=== PATIENT | male | born 1960 | race Hispanic/Latino ===

== ENCOUNTER 2016-06-03 13:04 | Emergency (ER) | payer OTHER ==
[~2016-06-03] VITALS: Ht 177.8 cm; Wt 122.7 kg
[~2016-06-03 13:04] MED LIST: ARIP10TA14 PO; ASPI-973 PO; ATOR40TA69 PO; CEPH500C PO; FAMO20T PO; GABA600T2 PO; INSLIS SUBQ; INSU100V7 SUBQ; LEVO50TA83 PO; LISI-567 PO; METF1000 PO; SULF1TAB7 PO; VENL150C PO
[2016-06-03 13:11] VITALS: BP 119/77; PULSE 85; RESP 12; O2SAT 98
--- NOTE | 2016-06-03 13:13 | ED.REPORT ---
HPI-General Illness Date of Service Jun 03, 2016 ED Provider: Dr. Jameson Pt is a 55 y/o male w/ a hx of NIDDM, HTN, chronic osteomyelitis, Hep C, substance abuse, hyperlipidemia, presenting to the ED via EMS c/o lightheadedness and headache onset last night. Last night, the patient turned on his natural gas heating system after a long time of having it off and began to experience symptoms this morning. His girlfriend reportedly has been experiencing similar symptoms. He also reports subjective paresthesias about the face and upper extremities diffusely. Pt denies CP, SOB, focal numbness/ weakness, fever, chills, nausea, vomiting, recent illnesses. He last used IV meth 2 days ago. Nursing Notes Stated Complaint: LIGHT HEADED, DIZZY, POSSIBLE GAS EXPOSURE Nursing Notes Reviewed: Yes Allergies: Coded Allergies: hydrocodone (Verified Allergy, Unknown, itching all over, 01/13/16) aspirin (Verified Adverse Reaction, Severe, gi upset, 01/13/16) Scheduled Aripiprazole (Abilify) 10 Mg Tablet 10 MG PO DAILY Aspirin (Aspirin) 81 Mg Tablet 81 MG PO DAILY Atorvastatin Calcium (Atorvastatin Calcium) 40 Mg Tablet 40 MG PO HS Cephalexin (Cephalexin) 500 Mg Capsule 500 MG PO QID Famotidine (Pepcid) 20 Mg Tablet 20 MG PO BID Gabapentin (Gabapentin) 600 Mg Tablet 600 MG PO TID Insulin Glargine (Lantus U100 Insulin Vial) 100 Unit/Ml Vial 55 UNIT SUBQ BID Levothyroxine (Synthroid) 50 Mcg Tablet 50 MCG PO DAILYAC Lisinopril (Lisinopril) 20 Mg Tablet 20 MG PO DAILY Metformin (Glucophage) 1,000 Mg Tablet 1,000 MG PO BID Sulfamethoxazole/Trimeth 800-160 mg (Bactrim DS) 1 Each Tablet 2 TABLET PO BID Venlafaxine ER (Effexor XR) 150 Mg Cap.er.24h 150 MG PO DAILY Scheduled PRN Insulin Human Lispro (HumaLOG U100 Insulin Vial) 100 Unit/Ml Unit 0-40 UNIT SUBQ TIDWM PRN PRN sliding scale 10 units subq for every 100 BS General Time Seen by MD: 13:13 Chief Complaint Other (Lightheaded) Hx Obtained From: Patient, EMS Arrived By: Ambulance Sudden in Onset?: No Onset Occurred: 9 - 12 hours ago Symptom Duration: Since onset Location: : Head Quality: Aching Severity: Current: Moderate Severity: Maximum: Moderate Past Medical History Past Medical History Chronic osteomyelitis Hep C Substance abuse Peripheral vascular disease Peripheral neuropathy Diverticulitis Reports: Diabetes mellitus, Hyperlipidemia, Hypertension Past Surgical History 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 Physical Exam Vital Signs Vital Signs Date Time Temp Pulse Resp B/P Pulse Ox O2 Delivery O2 Flow Rate FiO2 06/03/16 16:16 14 121/68 98 Room Air 06/03/16 15:30 87 15 115/64 100 Nasal Cannula 2 06/03/16 14:30 84 16 121/65 97 Room Air 06/03/16 13:11 36.2 85 12 119/77 98 Nasal Cannula 2 Initial VS: Reviewed Head / Eyes: Atraumatic, Normocephalic, PERRL ENT: Mucous membranes moist, Conjunctiva normal, No scleral icterus Neck: Supple, Full range of motion Respiratory: Breath sounds normal, Clear to auscultation, No respiratory distress Cardiovascular: Regular rate & rhythm, Heart sounds normal, Intact distal pulses Abdomen / GI: Soft, Non-tender, No guarding, No rebound, No distention Extremities: Vascular intact, Neuro intact, No swelling, No tenderness Skin: Warm, Dry, No cyanosis Psychiatric: Mood/affect normal, Behavior normal, Normal thought content General/Constitutional: Awake, Alert, No acute distress, Cooperative, Not toxic appearing Appearance / Presentation: Positive: Obese Neurologic: Oriented X3, Speech NL, No motor deficits, No sensory deficits, CN II - XII intact, Cerebellar NL, Memory NL Subjective paresthesia around face and upper extremities Interpretation & Diagnostics Lab Results Interpretation Result Diagram: 06/03/16 1312 06/03/16 1312 Test 06/03/16 13:12 06/03/16 14:01 06/03/16 15:45 White Blood Count 13.5th/mm3 (3.8-10.1) Red Blood Count 5.40mil/mm3 (4.40-5.80) Hemoglobin 15.9g/dL (13.8-17.2) Hematocrit 46.7% (41.0-50.0) Mean Corpuscular Volume 86.5fL (81-100) Mean Corpuscular Hemoglobin 29.4pg (27.0-35.0) Mean Corpuscular Hemoglobin Concent 34.0% (32.0-37.0) Red Cell Distribution Width 13.2% (12.3-15.4) Platelet Count 275bil/L (150-400) Neutrophils (%) (Auto) 62.8% (40-74) Lymphocytes (%) (Auto) 27.8% (14-46) Monocytes (%) (Auto) 6.3% (4-12) Eosinophils (%) (Auto) 2.4% (0-5) Basophils (%) (Auto) 0.4% (0-3) Sodium Level 133mEq/L (134-144) Potassium Level 3.9mEq/L (3.5-5.2) Chloride Level 92mEq/L (97-108) Carbon Dioxide Level 24mmol/L (18-29) Blood Urea Nitrogen 32mg/dL (6-24) Creatinine 1.86mg/dL (0.76-1.27) Estimat Glomerular Filtration Rate 41mL/min (>59) Glucose Level 335mg/dL (60-99) Calcium Level 8.7mg/dL (8.5-10.1) Magnesium Level 1.8mg/dL (1.6-2.6) Total Bilirubin 0.3mg/dL (0.0-1.2) Aspartate Amino Transf (AST/SGOT) 22U/L (0-50) Alanine Aminotransferase (ALT/SGPT) 31U/L (0-44) Alkaline Phosphatase 68U/L (25-150) Total Protein 7.2g/dL (6.4-8.4) Albumin 3.6g/dL (3.4-5.0) Lactic Acid Level 2.5mmol/L (0.4-2.0) Hold Urine Received (Received) Lab Results Interpretation: AB.382/43/97.8/25.2/0.4 with FCOHb of 2.2 and FMetHb of 1.0 Urine tox screen positive for methamphetamine ECG Interpretation ECG Interpretation: Sinus rhythm rate 82 RBBB and LAFB Time: 14:05 Interpreted by: ED physician Normal ECG Interpretation: No acute ischemic changes, No change from prior ECGs X-Ray Chest Interpretation View: Portable, 1 view Interpretation / Wet Read by: Wet read ED physician NL X-Ray Chest Findings: No infiltrate, No acute disease CT Head Interpretation IMPRESSION: 1. No acute intracranial abnormalities. 2. Chronic ethmoid sinus disease. Dictated by: Saundra Carson M.D. on 06/03/2016 at 13:45 Approved by: Saundra Carson M.D. on 06/03/2016 at 13:47 Study: Head CT no contrast Interpretation / Wet Read by: Interpret - Radiologist Re-Eval/Medical Decision Med Decision/Clinical Course Patient symptoms improved dramatically while in the ER with IV fluids and a short trial of supplemental oxygen. There are no cardiopulmonary symptoms, this is inconsistent with stroke or subarachnoid hemorrhage, unlikely to be acute coronary syndrome or pulmonary embolism or aortic dissection. He does have poorly controlled diabetes and some dehydration on laboratory evaluation, I do not suspect acute infection in this patient. Carbon monoxide poisoning and methemoglobinemia has been ruled out via ABG with co-oximetry. Overall patient is feeling better and will be discharged. To return and follow-up precautions given Time of Eval: 15:31 Re-Evaluation/Progress Note: Pt rechecked. Informed pt of plan for treatment. Pt understands and agrees with plan for treatment. F/U and RTER warnings given. All questions addressed. Counseled Regarding: Diagnosis, Lab results, Need for follow-up, When/why to return to ED Discharge & Departure Primary Impression: Near syncope Additional Impressions: Methamphetamine abuse IV drug abuse Disposition: Home Discharge Condition All VS Reviewed: Yes Condition: Stable Additional Instructions: Overall there does not seem to be a life-threatening cause for your symptoms. Her EKG, chest x-ray, head CT and laboratory studies are normal. There is no evidence of carbon monoxide poisoning. You may be dehydrated, your sugars are elevated. You should follow-up with a primary care doctor for further evaluation. Return to ER if worse. Referrals: Trever Lees DO (PCP) Anupam Attestation Portions of this note were transcribed by Christos Fernando. I, Dr. Jameson personally performed the history, physical exam and medical decision-making; I reviewed and confirmed the accuracy of the information in the transcribed note. Signed by Anupam Rocha, 06/03/16 - 1400 copies to: Trever Lees Timothy S DO Jun 03, 2016 13:13 CHRISTOS FERNANDO Jun 03, 2016 13:14
[2016-06-03] MEDS ORDERED: 0.9% Sodium Chloride 1,000 ML IV ONE (13:22)
[2016-06-03] MEDS ORDERED: Ondansetron 2 mg/mL 2 mL Inj IV PRN (13:25)
[2016-06-03] MEDS ORDERED: HYDROmorphone 0.5 mg/0.5 mL iSecure Syringe IVPUSH PRN (13:25)
[2016-06-03 13:38] LABS: BASOPHILS % (AUTO) 0.4 % (0-3); EOSINOPHILS % (AUTO) 2.4 % (0-5); MONOCYTES % (AUTO) 6.3 % (4-12); Mean Corpuscular Hemoglobin 29.4 pg (27.0-35.0); Mean Corpuscular Volume 86.5 fL (81-100); NEUTROPHILS % (AUTO) 62.8 % (40-74); Platelet Count 275 bil/L (150-400)
--- NOTE | 2016-06-03 13:47 | ABG ---
DateTimeAnalyzed 13:44:00 -_ pH ____7.382 - 7.350 7.450 pCO2 ___43.3__ -mmHg 35.0 45.0 pO2 ___97.8__ -mmHg 69.0 116 HCO3- ___25.2__ -mmol/L 22.0 26.0 ABE ____0.4__ -mmol/L -2.0 2.0 tHb ___14.8__ -g/dL O2Hb ___94.6__ -% COHb ____2.2__ -% MetHb ____1.0__ -% sO2 ___97.7__ -% 25.0 FIO2 ___28.0__ -% Drawn By jmw - Date/Time Notified____ 13:47:00 -_ Spontaneous_RR ___19.0__ -b/min Liter_Flow ____2.0__ -L/min Oxygen Device 1 __CANNULA - Notified By JMW - Notified Whom DR O,JENNI - B 765 -mmHg tO2 ___19.7__ -Vol% Yon test _Positive -
[2016-06-03 13:48] LABS: Magnesium 1.8 mg/dL (1.6-2.6)
--- NOTE | 2016-06-03 13:50 | DRSVH ---
PROCEDURE: CT BRAIN WITHOUT CONTRAST ([id number]) INDICATIONS: headache TECHNIQUE: Noncontrast 4.5 mm thick angled axial sections acquired from the foramen magnum to the vertex, with c oronal reformats. COMPARISON: [facility], CT, BRAIN W/O CONTRAST, 01/11/2014, 17:02. [facility], CT, BRAIN W/O CONTRAST, 07/30/2011, 15:09. FINDINGS: Image quality: Excellent. CSF spaces: Basal cisterns are patent. No extra-axial fluid collections. The ventricles are symmet sergio in size and shape. Brain: No intracranial bleeds or masses. There is mild cerebral volume loss for age, with resultant ventricular and sulcal prominence. There are mild periventricular and deep white matter chronic sma ll vessel ischemic changes. There is intracranial internal carotid artery atherosclerosis. Skull and face: Calvarium and visualized facial bones appear intact, without suspicious lesions. Sinuses: Chronic bilateral ethmoid sinus the other thickening could mastoids are clear. IMPRESSION: 1. No acute intracranial abnormalities. 2. Chronic ethmoid sinus disease. Dictated by: Saundra Carson M.D. on 06/03/2016 at 13:45 Approved by: Saundra Carson M.D. on 06/03/2016 at 13:47
[2016-06-03 14:30] VITALS: BP 121/65; PULSE 84; RESP 16; O2SAT 97
[2016-06-03 15:30] VITALS: BP 115/64; PULSE 87; RESP 15; O2SAT 100
--- NOTE | 2016-06-03 15:33 | DRSVH ---
PROCEDURE: X-RAY CHEST ONE VIEW, PORTABLE ([id number]) INDICATIONS: weakness TECHNIQUE: One view of the chest was acquired. COMPARISON: [facility], CR, CHEST 1VW (PORTABLE), 04/23/2014, 21:57. [facility], CR, XR CHEST 1VW (PORTABLE), 12/21/2014, 9:39. [facility], CR, CHEST 1 VIEW, 04/03/2016, 22 :55. [facility], CR, XR CHEST 1VW (PORTABLE), 10/30/2015, 21:19. FINDINGS: Surgical changes and devices: None. Lungs and pleura: No pleural effusions or pneumothorax. Lungs are clear. Mediastinum: Mediastinal contours appear normal. Heart size is normal. Bones and chest wall: No suspicious bony lesions. Overlying soft tissues appear unremarkable. IMPRESSION: No acute cardiopulmonary disease. Dictated by: Saundra Carson M.D. on 06/03/2016 at 15:30 Approved by: Saundra Carson M.D. on 06/03/2016 at 15:31
[2016-06-03 16:16] VITALS: BP 121/68; RESP 14; O2SAT 98
== END 2016-06-03 16:17 | disposition home or self-care (01) ==
LOC: SED 13:04
DX: R55 Syncope and collapse (principal); F15.10 Other stimulant abuse, uncomplicated; E11.40 Type 2 diabetes mellitus with diabetic neuropathy, unspecified; I10 Essential (primary) hypertension; E78.5 Hyperlipidemia, unspecified; Z79.4 Long term (current) use of insulin; Z79.82 Long term (current) use of aspirin; Z79.84 Long term (current) use of oral hypoglycemic drugs; Z87.891 Personal history of nicotine dependence; Z88.5 Allergy status to narcotic agent; Z88.8 Allergy status to other drugs, medicaments and biological substances
CPT/HCPCS: 36415; 36620; 70450; 71010; 80053; 82375; 82803; 82948; 83605; 83735; 85025; 93005; 96361; 96374; 96375; 99285; J1170; J2405; J7030

== ENCOUNTER 2016-08-30 14:26 | Inpatient (IN) | payer OTHER, MEDICAID ==
[~2016-08-30] VITALS: Ht 180.3 cm; Wt 130.3 kg
[2016-08-30 14:29] VITALS: BP 152/91; PULSE 111; RESP 16; O2SAT 96
--- NOTE | 2016-08-30 15:32 | ED.REPORT ---
HPI-Rash / Abscess Date of Service Aug 30, 2016 ED Provider: Anu German History of Present Illness: abscess on left ankle for 10 days. primary care is Dr. Puga . Sent by Dr. Puga. Diabetic, last A1c 11.4 today. Seen today at [facility] hoping to get clearance to go to treatment for meth use. ankle swelling and erthyma noted. patient reports started out as a bruise which got worse. Nursing Notes Stated Complaint: L ANKLE ABSCESS Chief Complaint: Skin Rash/Abscess Nursing Notes Reviewed: Yes Allergies: Coded Allergies: hydrocodone (Verified Allergy, Unknown, itching all over, 08/30/16) aspirin (Verified Adverse Reaction, Severe, gi upset, 08/30/16) Scheduled Aripiprazole (Abilify) 10 Mg Tablet 10 MG PO DAILY Aspirin (Aspirin) 81 Mg Tablet 81 MG PO DAILY Atorvastatin Calcium (Atorvastatin Calcium) 40 Mg Tablet 40 MG PO HS Cephalexin (Cephalexin) 500 Mg Capsule 500 MG PO QID Famotidine (Pepcid) 20 Mg Tablet 20 MG PO BID Gabapentin (Gabapentin) 600 Mg Tablet 600 MG PO TID Insulin Glargine (Lantus U100 Insulin Vial) 100 Unit/Ml Vial 55 UNIT SUBQ BID Levothyroxine (Synthroid) 50 Mcg Tablet 50 MCG PO DAILYAC Lisinopril (Lisinopril) 20 Mg Tablet 20 MG PO DAILY Metformin (Glucophage) 1,000 Mg Tablet 1,000 MG PO BID Sulfamethoxazole/Trimeth 800-160 mg (Bactrim DS) 1 Each Tablet 2 TABLET PO BID Venlafaxine ER (Effexor XR) 150 Mg Cap.er.24h 150 MG PO DAILY Scheduled PRN Insulin Human Lispro (HumaLOG U100 Insulin Vial) 100 Unit/Ml Unit 0-40 UNIT SUBQ TIDWM PRN PRN sliding scale 10 units subq for every 100 BS General Time Seen by MD: 15:31 Chief Complaint Boil, Red area Hx Obtained From: Patient Onset Occurred: More than a week ago... (2 weeks) Symptom Duration: Since onset Location: : Foot Past Medical History Past Medical History Chronic osteomyelitis Hep C Substance abuse Peripheral vascular disease Peripheral neuropathy Diverticulitis Reports: Diabetes mellitus, Hyperlipidemia, Hypertension Past Surgical History Right leg amputation at the knee L foot surgery Reports: Appendectomy, Tonsillectomy Smoking History Former Smoker Social History Alcohol Use: "Social" Drug Use: IV drugs, Meth Occupation lives with girfriend, in a house 08/30/2016 Ambulatory Status Wheelchair Review of Systems Basic Review of Systems : No dysuria, No frequency Neurologic: NL mental status, No weakness, No numbness Psychiatric: Normal thought content Physical Exam Initial Vital Signs Vital Signs (First) Date Time Temp Pulse Resp B/P Pulse Ox O2 Delivery O2 Flow Rate FiO2 08/30/16 14:29 36.4 111 16 152/91 96 Room Air Initial VS: Reviewed, Vital signs abnormal Head / Eyes: Atraumatic, Normocephalic, PERRL ENT: Mucous membranes moist, Conjunctiva normal, No scleral icterus Neck: Supple, Non-tender, Full range of motion Respiratory: Breath sounds normal, Clear to auscultation, No respiratory distress Cardiovascular: Regular rate & rhythm, Heart sounds normal, Intact distal pulses Abdomen / GI: Soft, Non-tender, No guarding, No rebound, No distention Back: No CVA tenderness Lymphatic: No lymphadenopathy Extremities: Vascular intact, Neuro intact, No swelling, No tenderness Neurologic: Alert, Oriented, Nonfocal Psychiatric: Mood/affect normal, Behavior normal, Normal thought content General/Constitutional: Awake, Alert, No acute distress, Well appearing, Well developed, Well hydrated Rash / Lesion Notes: swelling is noted over medial malleolus with surrounding erthyma. No palpabable discharge. Site is hard. localized swelling at medial malleolus with surrounding erthyma. Site does not feel flouctant. Head / Eyes: Atraumatic, Normocephalic, PERRL, EOMI Respiratory / Chest: Atraumatic, Breath sounds NL, Breath sounds = bilat, No respiratory distress Cardiovascular: Heart rate NL, Regular rhythm, Heart sounds NL Interpretation & Diagnostics Interpretation & Diagnostics: PROCEDURE: US EXTREMITY SONOGRAM LIMITED ([id number]) INDICATIONS: ? abscess TECHNIQUE: Real-time scanning was performed of the distal left leg, with image documentation. COMPARISON: None. FINDINGS: In this patient with swelling and redness along the medial ankle there is edematous tissue and some increased vascularity but there is no loculated fluid to indicate abscess. IMPRESSION: There is phlegmonous edematous tissue with increased vascularity but no abscess. Dictated by: Abilio Seaman M.D. on 08/30/2016 at 17:39 Approved by: Abilio Seaman M.D. on 08/30/2016 at 17:41 Lab Results Interpretation Result Diagram: 08/30/16 1710 08/30/16 1710 Test 08/30/16 17:10 White Blood Count 9.2th/mm3 (3.8-10.1) Red Blood Count 5.29mil/mm3 (4.40-5.80) Hemoglobin 15.6g/dL (13.8-17.2) Hematocrit 47.2% (41.0-50.0) Mean Corpuscular Volume 89.2fL (81-100) Mean Corpuscular Hemoglobin 29.5pg (27.0-35.0) Mean Corpuscular Hemoglobin Concent 33.1% (32.0-37.0) Red Cell Distribution Width 13.9% (12.3-15.4) Platelet Count 259bil/L (150-400) Neutrophils (%) (Auto) 67.1% (40-74) Lymphocytes (%) (Auto) 23.7% (14-46) Monocytes (%) (Auto) 7.3% (4-12) Eosinophils (%) (Auto) 1.3% (0-5) Basophils (%) (Auto) 0.5% (0-3) Sodium Level 138mEq/L (134-144) Potassium Level 4.6mEq/L (3.5-5.2) Chloride Level 99mEq/L (97-108) Carbon Dioxide Level 26mmol/L (18-29) Blood Urea Nitrogen 40mg/dL (6-24) Creatinine 1.79mg/dL (0.76-1.27) Estimat Glomerular Filtration Rate 42mL/min (>59) Glucose Level 146mg/dL (60-99) Lactic Acid Level 1.5mmol/L (0.4-2.0) Calcium Level 9.2mg/dL (8.5-10.1) Total Bilirubin 0.4mg/dL (0.0-1.2) Aspartate Amino Transf (AST/SGOT) 33U/L (0-50) Alanine Aminotransferase (ALT/SGPT) 46U/L (0-44) Alkaline Phosphatase 79U/L (25-150) Troponin T < 0.010ug/L (0.0-0.011) Total Protein 8.2g/dL (6.4-8.4) Albumin 3.9g/dL (3.4-5.0) X-Ray Interpretation Xray Interpretation: PROCEDURE: X-RAY LEFT ANKLE, MINIMUM THREE VIEWS ([id number]) INDICATIONS: 56-year-old male with medial left ankle abscess for 10 days. TECHNIQUE: 3 views of the ankle were acquired. COMPARISON: None. FINDINGS: Bones: No bony erosions or destruction. No fractures or dislocations. Ankle mortise is normally aligned. No suspicious bony lesions. Soft tissues: There is localized medial malleolar soft tissue swelling. No tibiotalar joint effusion. Achilles tendon appears normal. IMPRESSION: Medial malleolar soft tissue swelling, without underlying bony destruction to suggest advanced bony infection. Dictated by: Salty Resendiz M.D. on 08/30/2016 at 15:13 Approved by: Salty Resendiz M.D. on 08/30/2016 at 15:14 US Soft Tissue/Musculoskeletal PROCEDURE: US EXTREMITY SONOGRAM LIMITED ([id number]) INDICATIONS: ? abscess TECHNIQUE: Real-time scanning was performed of the distal left leg, with image documentation. COMPARISON: None. FINDINGS: In this patient with swelling and redness along the medial ankle there is edematous tissue and some increased vascularity but there is no loculated fluid to indicate abscess. IMPRESSION: There is phlegmonous edematous tissue with increased vascularity but no abscess. Dictated by: Abilio Seaman M.D. on 08/30/2016 at 17:39 Approved by: Abilio Seaman M.D. on 08/30/2016 at 17:41 Re-Eval/Medical Decision Med Decision/Clinical Course Discussed with Dr. Massey. Patient has famialrity with podiatry, many visists to office for care. X-ray does not show obvious signs of osteomlyitits. Ultrasound does not show any drainable abscess. Labs are unremarkable with the exception of creatinine. No sign of gangrene or cutaneous anthrax. Exam is most consistent with cellulitis. Dr. Massey will see him tomorrow. does not need to be NPO per Dr. Massey. If any drainage is indicated, will be done at bedside first per Dr. Massey Discharge & Departure Impression: Primary Impression: Cellulitis Additional Impressions: Uncontrolled diabetes mellitus Diabetes mellitus type: type 2 IV drug abuse Disposition: ADMITTED TO HOSPITAL Referrals: Ronal Le MD EDSupervising Provider for APC: Valentin Alvares MD copies to: Ronal Le MD, Sue ARNP Aug 30, 2016 15:32
[2016-08-30 15:34] VITALS: BP 143/75; PULSE 112; RESP 28; O2SAT 97
[2016-08-30] MEDS ORDERED: 0.9% Sodium Chloride 1,000 ML IV ONE (15:40)
--- NOTE | 2016-08-30 16:16 | DRSVH ---
PROCEDURE: X-RAY LEFT ANKLE, MINIMUM THREE VIEWS ([id number]) INDICATIONS: 56-year-old male with medial left ankle abscess for 10 days. TECHNIQUE: 3 views of the ankle were acquired. COMPARISON: None. FINDINGS: Bones: No bony erosions or destruction. No fractures or dislocations. Ankle mortise is normally ali gned. No suspicious bony lesions. Soft tissues: There is localized medial malleolar soft tissue swelling. No tibiotalar joint effusion . Achilles tendon appears normal. IMPRESSION: Medial malleolar soft tissue swelling, without underlying bony destruction to suggest adv anced bony infection. Dictated by: Salty Resendiz M.D. on 08/30/2016 at 15:13 Approved by: Salty Resendiz M.D. on 08/30/2016 at 15:14
[2016-08-30] MEDS ORDERED: Piperacillin-Tazo 3.375 Gm Inj 3.375 GM in Dextrose 5% Minibag Plus 50 ML IV ONE (16:20)
[2016-08-30] MEDS ORDERED: Ondansetron 2 mg/mL 2 mL Inj IVPUSH PRN (17:10)
[2016-08-30] MEDS ORDERED: Alum-Mag Hydrox-Simeth 30 mL Suspension PO PRN (17:10)
[2016-08-30 17:21] LABS: BASOPHILS % (AUTO) 0.5 % (0-3); EOSINOPHILS % (AUTO) 1.3 % (0-5); MONOCYTES % (AUTO) 7.3 % (4-12); Mean Corpuscular Hemoglobin 29.5 pg (27.0-35.0); Mean Corpuscular Volume 89.2 fL (81-100); NEUTROPHILS % (AUTO) 67.1 % (40-74); Platelet Count 259 bil/L (150-400)
[2016-08-30 17:30] VITALS: BP 140/76; PULSE 97; RESP 15; O2SAT 99
--- NOTE | 2016-08-30 17:42 | DRSVH ---
PROCEDURE: US EXTREMITY SONOGRAM LIMITED ([id number]) INDICATIONS: ? abscess TECHNIQUE: Real-time scanning was performed of the distal left leg, with image documentation. COMPARISON: None. FINDINGS: In this patient with swelling and redness along the medial ankle there is edematous tissue and some increased vascularity but there is no loculated fluid to indicate abscess. IMPRESSION: There is phlegmonous edematous tissue with increased vascularity but no abscess. Dictated by: Abilio Seaman M.D. on 08/30/2016 at 17:39 Approved by: Abilio Seaman M.D. on 08/30/2016 at 17:41
[2016-08-30 17:45] LABS: TROPONIN T < 0.010 ug/L (0.0-0.011)
[2016-08-30 19:07] VITALS: BP 169/97; PULSE 59; RESP 16; O2SAT 100
[2016-08-30] MEDS ORDERED: HYG25 PO (20:12)
[2016-08-30] MEDS ORDERED: LISI40TA PO (20:12)
[2016-08-30 20:18] VITALS: BP 148/85; PULSE 100; RESP 17; O2SAT 95
[2016-08-30] MEDS ORDERED: Dextrose 10% 250 ML IV PRN (20:35)
[2016-08-30] MEDS ORDERED: Glucose 40% Oral Gel 15 Gm Tube PO PRN (20:35)
[2016-08-30] MEDS ORDERED: cefTRIAXone Inj 2,000 MG in Dextrose 5% Minibag Plus 50 ML IV SCH (21:07)
--- NOTE | 2016-08-30 22:00 | PCM.HPMED ---
Subjective Date of Service Aug 30, 2016 Primary Provider: Admitting Physician: Ania Reyna DO Primary Care Physician: Trever Lees DO Attending Physician: Ania Reyna DO Admit Status: From the Emergency Department Chief Complaint: Infection of R medial malleolus History of Present Illness: 56 yo M with past medical history of chronic osteomyelitis right leg amputation and knee due to diabetic complications, hepatitis C and depression, substance abuse, peripheral vascular disease, hyperlipidemia, diverticulitis, hypertension , and diabetes uncontrolled is presenting to the ER with chief complaint of left medial malleolar cellulitis. He was apparently seeing Dr. puga for a clearance for a meth rehabilitation program and Dr. Puga noticed that he has medial malleolus soft tissue swelling and redness and infection as he sent patient to the ER. Patient apparently knows Dr. Massey. She is contacted by the ER she will consider patient tomorrow may opt to perform a bedside I&D Patient states that he started having problems with malleolus tenderness ago when he hit against a shopping cart. He also has several track roche needle roche on the leg but he says that there is a nontender roche rather he uses his arms on the these are just some bruises from various incidents. Patient is a meth user he both injects and also inhales meth. He states that he has eye problems due to diabetic retinopathy. He has sharp pain in his foot even though he has diabetic neuropathy. He currently uses a wheelchair to get around. In the ER A1c was 11.4, ultrasound of the foot showed non-drainable phlegmon there was no abscess. Edematous tissue w/ increased vascularity but no abscess , ankle x-ray showed medial malleolar soft tissue swelling without underlying bony destruction Zosyn one time doses given blood pressure was 152/91 heart rate was 111 respirations 28 EKG showed sinus tach, right bundle branch block, LAFB. Lab work showed a creatinine of 1.79 his previous value of 1.86 this may just be his baseline Patient is admitted as an inpatient under [facility] for management of left malleolus or cellulitis/concern for osteomyelitis., Allergies Coded Allergies: hydrocodone (Verified Allergy, Unknown, itching all over, 08/30/16) aspirin (Verified Adverse Reaction, Severe, gi upset, 08/30/16) Home Medications Home medications included aripiprazole, gabapentin, Lantus 55 units twice a day with sliding scale 3 times a day, levothyroxine, lisinopril, metformin PMH Chronic osteomyelitis, hepatitis C, depression, substance abuse, peripheral vascular disease, hyperlipidemia, diverticulitis, peripheral neuropathy, hypertension, diabetes Surgical History Right leg amputation at knee, left foot surgery, appendectomy, tonsillectomy Family History Mother has depression diabetes he does not know what his dad Social History Hx Alcohol Use: Yes Hx Substance Use: Yes (last used meth 8 hours ago (smoked it) does inject at times ) Hx Tobacco Use: Yes (10 cigarettes/day; has been smoking x 30 years) Smoking Status: Former Smoker Additional Information This with his girlfriend, social alcohol use, uses a wheelchair Exam Vital Signs Vital Sign - Last Date Time Temp Pulse Resp B/P Pulse Ox O2 Delivery O2 Flow Rate FiO2 08/30/16 20:18 36.7 100 17 148/85 95 Room Air Exam General: NAD, laying in bed, morbidly obese, slightly diaphoretic HEENT: NCAT, poor dentition Eyes: Dobson conjunctivae. No ptosis, PERRL Neck: Large neck No masses, trachea midline, no thyromegaly Lungs: CTA with normal respiratory effort, no crackles or wheezes CV: RRR, no murmurs/rubs/gallops, normal PMI GI: Soft, non-tender with no hepatosplenomegaly MSK: Missing right lower extremity, pedal pulses are present. He is able to move the leg around okay Neuro: Sensation is not altered in the foot 6Skin: Warm and dry. Several old needle roche on the left leg, left medial malleolus is red chronically erythematous around a 5 cm area with a nondraining spot in the middle some of it looks pruritic but without drainage Psych: appropriate affect Lab and Diagnostics Result Diagram: 08/30/16 1710 08/30/16 1710 X-Rays, CTs and MRIs PROCEDURE: US EXTREMITY SONOGRAM LIMITED ([id number]) INDICATIONS: ? abscess IMPRESSION: There is phlegmonous edematous tissue with increased vascularity but no abscess. Dictated by: Abilio Seaman M.D. on 08/30/2016 at 17:39 Approved by: Abilio Seaman M.D. on 08/30/2016 at 17:41 NDICATIONS: 56-year-old male with medial left ankle abscess for 10 days. IMPRESSION: Medial malleolar soft tissue swelling, without underlying bony destruction to suggest advanced bony infection. Dictated by: Salty Resendiz M.D. on 08/30/2016 at 15:13 Approved by: Salty Resendiz M.D. on 08/30/2016 at 15:14 12-lead ECG Sinus tach, RBBB, LAFB Assessment & Plan This is a 56-year-old male with chronic cellulitis problems, diabetes, hep C, substance abuse, peripheral vascular disease, hypertension, diabetes that is uncontrolled presenting today fit the cellulitis of the left medial malleolus Assessment #1 cellulitis of the left medial malleolus,, POA -- Zosyn was given in the ER, will give her linezolid plus ceftriaxone due to his renal function and large body habitus differing vancomycin -- ESR and CRP are ordered -- MRI of the left foot is ordered -- Pain control with oxycodone 5 mg every 4 hours when necessary -- We will consider ID consult tomorrow morning -- consult Dr. Massey Assessment #2: Hypertension, chronic active -- Lisinopril was cut to 20 mg daily due to poor renal function -- Elected to use amlodipine rather than to chlorthalidone due to poor renal function -- Daily BMP, CBC, ESR, CRP Assessment #3 diabetes mellitus insulin-dependent, chronic uncontrolled active, states he took insulin this morning -- We will contact home insulin of 55 units twice a day Lantus to 40 units twice a day Lantus -- Sliding scale coverage high-level insulin Humalog -- Before meals at bedtime checks -- Discontinue home medication metformin -- A1C = 11.4 per ED Assessment #4 peripheral neuropathy, chronic reactive -- Continue medication Assessment #5 depression, chronic, active -- We will hold off on giving him the venlafaxine due to side effect of interaction with linezolid Assessment #6 hypothyroidism, chronic active -- Continue home medication levothyroxine Pain Evaluation: Adequate Pain Control Time spent 40 min Ania Reyna DO Aug 30, 2016 22:00
[2016-08-30] MEDS: 0.9% Sodium Chloride 1,000 ML IV SCH (22:14)
[2016-08-30] MEDS: Insulin GLARgine 100 Unit/mL Syringe SUBQ SCH (22:45)
[2016-08-30] MEDS: Insulin LISPRO 300 Unit/3 mL Inj SUBQ SCH (22:48)
[2016-08-31] VITALS (14 sets, daily range): BP systolic 137–180; BP diastolic 63–96; PULSE 82–106; RESP 11–22; O2SAT 96–100
--- NOTE | 2016-08-31 02:40 | NUR ---
Admit Patient arrived at 1900 with significant other at bedside, but left shortly after arrival. Made comfortable, NAC oriented to room, belonging was accounted for, At 2100 patient was taken for imaging c/o pain, given medication upon return.
[2016-08-31 06:20] LABS: Mean Corpuscular Hemoglobin 29.4 pg (27.0-35.0); Mean Corpuscular Volume 91.6 fL (81-100)
[2016-08-31] MEDS: Insulin LISPRO 300 Unit/3 mL Inj SUBQ SCH ×3 (08:06→22:10)
[2016-08-31] MEDS: ARIPiprazole 10 mg Tablet PO SCH (08:07)
[2016-08-31] MEDS: Insulin GLARgine 100 Unit/mL Syringe SUBQ SCH ×2 (08:07→20:29)
--- NOTE | 2016-08-31 08:25 | DRSVH ---
PROCEDURE: MRI ANKLE LEFT WITH AND WITHOUT CONTRAST ([id number]) INDICATIONS: r/o osteomyelitis TECHNIQUE: Noncontrast sagittal T1 spin echo and T2 fast spin echo with fat saturation, axial proton density fas t spin echo and T2 fast spin echo with fat saturation, axial T1 spin echo with fat saturation, barker l T1 spin echo and T2 fast spin echo with fat saturation through the ankle/hindfoot. Post-contrast a xial, coronal, and sagittal T1 spin echo with fat saturation through the ankle/hindfoot. COMPARISON: [facility], CR, XR ANKLE 3VW LT, 08/30/2016, 15:57. FINDINGS: Image quality: Extensive motion artifact is present nearly at every imaging sequence, which does resu lt in image degradation in suboptimal evaluation for subtle bony and soft tissue abnormalities. Bones: No acute fracture or dislocation is present. The ankle mortise is well-maintained. There are no osteochondral defects involving the tibial plafond toward the talar dome. There is mild marrow e radha present along the medial malleolus with corresponding concave deformity at the junction of the m edial distal tibial metaphysis and the medial malleolus. Overlying periosteal thickening is evident. There is corresponding mild enhancement within the bone at this location. Subperiosteal fluid at t his position is evident, which measures approximately 1.6 x 0.6 x 1.2 cm (image 19, series 3 and imag e 10, series 14). Mild to moderate degenerative changes involving the tarsal metatarsal and tarsonav icular joints are present. Otherwise, the remainder of the osseous structures of the midfoot and hind foot are grossly unremarkable. No definite additional areas of marrow edema/enhancement are apprecia joanna. There is a small ankle effusion. Soft tissues: Moderate subcutaneous edema about the ankle is identified, which is more pronounced me dially. Within the subcutaneous tissues overlying the medial malleolus, there is phlegmonous soft ti ssue changes with extensive enhancement in a region that measures at least 2.7 x 1.2 x 2.8 cm (image 18, series 4). Small pockets of fluid contained within this area prominent soft tissue thickening an d enhancement is identified. Additional areas of subcutaneous edema overlying the medial aspect of t he ankle are present. Additional areas of mild soft tissue edema are seen throughout the midfoot and hindfoot with edema and enhancement noted involving the intrinsic muscles of the midfoot. No soft t issue masses or suspicious soft tissue enhancement is identified. Given the degree of motion artifact, evaluation of the soft tissues for ligamentous or tendinous abno rmalities is limited. However, there is tendinopathy involving the peroneus brevis and peroneus long us tendons. Incidental note is made of hernias quartus, an accessory tendon, which is a normal varia nt. Susceptibility artifact along the plantar surface of the lateral mid foot is evident underlying the calcaneocuboid joint. IMPRESSION: 1. Limited MRI, related to motion artifact. 2. Concave bony deformity with mild marrow edema/enhancement along the medial aspect of the distal t ibia with corresponding periosteal reaction and an overlying soft tissue abscess/phlegmonous change i s highly suspicious for osteomyelitis and clinical correlation is recommended. (A soft tissue mass e roding into the bone is felt to be less likely.) 3. Moderate soft tissue edema about the midfoot/hindfoot. No drainable fluid collection is evident. 4. Subcutaneous edema about the ankle. 5. Moderate degenerative changes involving the midfoot joints. 6. Mild to moderate peroneus brevis and peroneus longus tendinopathy. Dictated by: Patricio Madden M.D. on 08/31/2016 at 8:10 Approved by: Patricio Madden M.D. on 08/31/2016 at 8:24
[2016-08-31] MEDS ORDERED: Lisinopril 40 Tablet PO SCH (08:30)
[2016-08-31] MEDS ORDERED: Venlafaxine XR 75 mg ER24 Capsule PO SCH (08:30)
--- NOTE | 2016-08-31 12:38 | PCM.CHPPOD ---
Subjective Date of service Aug 31, 2016 History of Present Illness The patient came in to the emergency department on request of Dr. Le for swelling along the medial ankle on his remaining limb. The patient has an above -the-knee amputation stump on the right. He states that he hit his ankle with a shopping cart approximately 10-11 days ago and the swelling started at that time. He has a history of IV drug abuse, intermittent, with history of previous overdoses. He is pleasant in conversation, as usual, but a poor historian. His girlfriend is currently not at his bedside, but in previous visits to the hospital, his demeanor would change when she is around. At this point he denies fevers and chills, nausea and vomiting. He did have nausea and chills for several days prior to seeing his primary care physician. He avoids coming to the hospital. Allergy Allergies: Coded Allergies: hydrocodone (Verified Allergy, Unknown, itching all over, 08/30/16) aspirin (Verified Adverse Reaction, Severe, gi upset, 08/30/16) Medications Aripiprazole (Abilify) 10 Mg Tablet 10 MG PO DAILY Chlorthalidone (Chlorthalidone) 25 Mg Tablet 25 MG PO DAILY Gabapentin (Gabapentin) 600 Mg Tablet 600 MG PO TID Insulin Glargine (Lantus U100 Insulin Vial) 100 Unit/Ml Vial 55 UNIT SUBQ BID Insulin Human Lispro (HumaLOG U100 Insulin Vial) 100 Unit/Ml Unit 0-40 UNIT SUBQ TIDWM PRN PRN sliding scale 10 units subq for every 100 BS Levothyroxine (Synthroid) 50 Mcg Tablet 50 MCG PO DAILYAC Lisinopril (Lisinopril) 40 Mg Tablet 40 MG PO DAILY Metformin (Glucophage) 1,000 Mg Tablet 1,000 MG PO BID Venlafaxine ER (Effexor XR) 150 Mg Cap.er.24h 150 MG PO DAILY Past Medical History Reviewed Admit H&P dictated by: Dr. Reyna Surgeries: Yes ( rt Aka, rt rotator cuff , appy) Medical History: (1) Chronic pain (2) Contusion, hand (3) Hyperglycemia (4) Methamphetamine use (5) Diverticulitis (6) Diverticulitis (7) LLQ abdominal pain (8) Gastritis (9) Pancreatic mass (10) Shoulder pain, right (11) Hyperglycemia (12) Chest pain (13) Cellulitis in diabetic foot (14) Near syncope (15) Methamphetamine abuse (16) Uncontrolled blood glucose (17) Cellulitis (18) Uncontrolled diabetes mellitus (19) IV drug abuse (20) Cellulitis of left ankle (21) Osteomyelitis (22) Bacteremia due to coagulase-negative Staphylococcus (23) Hyperglycemia without ketosis (24) Diabetic foot ulcer (25) NEUROPATHY IN DIABETES (26) HYPERTENSION NOS (27) ULCER OF HEEL AND MIDFOOT (28) Ulcer of lower extremity (29) ULCER OF OTHER PART OF LOWER LIMB (30) ULCER OF LOWER LIMB NOS (31) burn finger third-degree (32) Ulcer of foot (33) Pressure sore on heel (34) OBESITY, NOS (35) TOBACCO USE DISORDER (36) DIAB W NEURO MANIFEST, TYPE II OR UNSPEC TYPE, NOT UNCNTRLD (37) DIAB W RENAL MANIFEST, TYPE II OR UNSPEC TYPE, NOT UNCNTRLD (38) 994.43 burn finger third-degree (39) ULCER OF OTHER PART OF FOOT Surgical History: Social History Hx Alcohol Use: Yes Hx Substance Use: Yes Hx Tobacco Use: Yes (10 cigarettes/day; has been smoking x 30 years) Smoking Status: Former Smoker Podiatry Consult Exam Vital Signs Vital Sign - Last Date Time Temp Pulse Resp B/P Pulse Ox O2 Delivery O2 Flow Rate FiO2 08/31/16 05:10 36.8 88 17 143/87 96 Room Air Intake and Output 08/30/16 08/30/16 08/31/16 Cumulative From/Thru 15:00 23:00 07:00 08/30/16 14:29 - 08/31/16 05:10 Intake Total 1000 ml 1032 ml 2032 ml Output Total 250 ml 250 ml Balance 1000 ml 782 ml 1782 ml Intake Oral 800 ml 800 ml IV Total 1000 ml 232 ml 1232 ml Output Urine Total 250 ml 250 ml # Bowel Movements 1 1 Result Diagram: 08/31/16 0530 08/31/16 0530 Lab Test 08/30/16 17:10 08/31/16 05:30 Neutrophils (%) (Auto) 67.1% (40-74) Lymphocytes (%) (Auto) 23.7% (14-46) Monocytes (%) (Auto) 7.3% (4-12) Eosinophils (%) (Auto) 1.3% (0-5) Basophils (%) (Auto) 0.5% (0-3) Erythrocyte Sedimentation Rate 4mm/hr (0-30) Lactic Acid Level 1.5mmol/L (0.4-2.0) Total Bilirubin 0.4mg/dL (0.0-1.2) Aspartate Amino Transf (AST/SGOT) 33U/L (0-50) Alanine Aminotransferase (ALT/SGPT) 46U/L (0-44) Alkaline Phosphatase 79U/L (25-150) Troponin T < 0.010ug/L (0.0-0.011) C-Reactive Protein < 0.1mg/dL (0.0-0.5) Total Protein 8.2g/dL (6.4-8.4) Albumin 3.9g/dL (3.4-5.0) White Blood Count 6.7th/mm3 (3.8-10.1) Red Blood Count 4.89mil/mm3 (4.40-5.80) Hemoglobin 14.4g/dL (13.8-17.2) Hematocrit 44.8% (41.0-50.0) Mean Corpuscular Volume 91.6fL (81-100) Mean Corpuscular Hemoglobin 29.4pg (27.0-35.0) Mean Corpuscular Hemoglobin Concent 32.1% (32.0-37.0) Red Cell Distribution Width 14.1% (12.3-15.4) Platelet Count 210bil/L (150-400) Sodium Level 138mEq/L (134-144) Potassium Level 5.1mEq/L (3.5-5.2) Chloride Level 100mEq/L (97-108) Carbon Dioxide Level 27mmol/L (18-29) Blood Urea Nitrogen 39mg/dL (6-24) Creatinine 1.37mg/dL (0.76-1.27) Estimat Glomerular Filtration Rate 58mL/min (>59) Glucose Level 224mg/dL (60-99) Calcium Level 8.3mg/dL (8.5-10.1) Diagnostics An x-ray of the left ankles did not show any bony erosions. The ultrasound showed a phlegmon. Limited MRI, related to motion artifact, showed a Concave bony deformity with mild marrow edema/enhancement along the medial aspect of the distal tibia with corresponding periosteal reaction and an overlying soft tissue abscess/phlegmonous change is highly suspicious for osteomyelitis and clinical correlation is recommended. (A soft tissue mass eroding into the bone is felt to be less likely.) Exam General: Alert, Oriented X3, Cooperative, No Acute Distress Lower Extremities: Left: Edema localized (medial malleolus) Extremity warm (erythema along the medial malleolus, central puncture, hyper granulation) Lower Extremity Pulses: Palpable: Left Dorsalis Pedis Left Posterior Tibal Podiatry WOUND : Wound Location/Description There is a volcano like abscess formation on the medial aspect of the left medial malleolus, it is fluctuant and erythematous, now weeping. When he presented to the emergency department yesterday there was no open wound. This represents a focalization of the infection or soft tissue reaction to possible injected drugs. No other open areas on the left lower extremity Assessment & Plan Problems: (1) Abscess of left leg excluding foot Plan: The patient is now nothing by mouth for surgical intervention this afternoon. I plan on incising and draining the abscess, leaving it packed open. If I do encounter soft bone, the patient will likely require prolonged antibiotics to salvage this limb. It is very important to salvage the left lower extremity since he is already missing his right one. I will get culture specimens to guide antibiotic therapy at that time. I anticipate that he will get localized wound care for a few days and delayed closure on Saturday or Saturday next week, if possible at that time. Status: Acute ICD Code: L02.416 (2) Uncontrolled diabetes mellitus with diabetic neuropathy Plan: Dr. Reyna will work on tightening up his glucose control while he is in the hospital. It is very clear that the patient does not follow his diabetes regimen at home. Status: Acute ICD Code: E11.40 (3) Hx of AKA (above knee amputation) Plan: He is at high risk for further amputation, this time of the left lower extremity. An effort in addiction treatment is very much in his favor to help prevent future complications of the lower extremity. Status: Acute ICD Code: Z89.619 Nhung Massey DPM Aug 31, 2016 12:38
[2016-08-31] MEDS ORDERED: fentaNYL-PF 50 mCg/mL 2 mL Inj ONE (12:48)
[2016-08-31] MEDS ORDERED: Ondansetron 2 mg/mL 2 mL Inj ONE (12:48)
[2016-08-31] MEDS ORDERED: Succinylcholine Chloride 20 mg/mL 5 mL Inj ONE (12:48)
[2016-08-31] MEDS ORDERED: Propofol 10 mg/mL 20 mL Inj ONE (12:48)
--- NOTE | 2016-08-31 15:11 | CONS ---
[address] [address] CONSULTATION REPORT PATIENT: BELLO LAMB : 1960 MR#: [id number] ADMIT: 08/30/2016 JOB ID: [id number] DATE OF SERVICE: 08/31/[address] Bird Reyna for this timely consult. REASON FOR CONSULTATION: Left medial malleolus inflammatory mass, possible infection. HISTORY OF THE PRESENT ILLNESS: The patient is an unfortunate, 56 old gentleman with a wide variety of medical problems revolving around diabetes, hep C, and methamphetamine use. He had an AKA on the right about 2-1/2 years ago because of chronic osteo related to his diabetes. He reports that he accidentally banged his left and remaining medial malleolus on a shopping cart about 10 days or so ago and since then has developed progressive swelling and tenderness over the medial malleolus. This has not been associated with systemic symptoms, and he has not had fevers, chills, sweats, cough, nausea, or vomiting. Because of this progressive swelling, he eventually sought evaluation from his primary care doctor, Dr. Ronal Le. Dr. Le directed him here to the hospital where he was admitted yesterday and is being evaluated by Podiatry today. We were called in to help with antibiotic selection in this complex patient. This afternoon, when we see the patient, he is lying quietly in bed. He states that he is not having fevers, chills, or sweats. He has no constitutional symptoms at all. He does some pain over his swollen left medial malleolus. He is currently on the docket for surgery by Dr. Massey of podiatry later today and we had a chance to discuss her thoughts about the case earlier this morning. PAST MEDICAL HISTORY: 1. Chronic osteomyelitis resulting in right AKA. 2. Diabetes mellitus. 3. Hep C, untreated as of this point. 4. Depression. 5. Methamphetamine use by inhalational and intravenous routes but never into the left medial malleolus per the patient's report. 6. Hyperlipidemia. 7. Congestive heart failure. 8. Ongoing alcohol abuse. SOCIAL HISTORY: The patient is an every day smoker. He uses meth by inhalational and IV routes as mentioned. His most recent meth injection was about five days ago into his arm. He inhaled some meth a couple days ago though. He also drinks alcohol fairly heavily, having about five beers every other day, which is a longstanding pattern for him. 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 FAMILY HISTORY: Negative for TB in primary or second-degree relatives. REVIEW OF SYSTEMS: Was done. This afternoon, the patient has no headache, no visual change. No sore throat, cough, chest pain, shortness of breath, nausea, vomiting, diarrhea, or dysuria. Remainder of the review of systems is negative. PHYSICAL EXAMINATION: Reveals an afebrile gentleman, temperature 36.4, pulse 89, respiratory rate 16, blood pressure 157/96. He is saturating well on room air. Examination of the mental status reveals it to be clear. Head without trauma. Eyes without conjunctivitis. Oral cavity: No thrush or hairy leukoplakia. Neck without notable abnormality or stiffness. Lungs relatively clear. Cardiac tones: Regular rate and rhythm. No murmur. Abdomen soft and nontender without organomegaly. No suprapubic fullness. He does not have a Potts catheter. His right leg has been amputated above the knee and this scar is well healed. On the left side, the patient has entire leg but his left forefoot is somewhat cool with very slow capillary refill, about 4 seconds. He has no posterior tibial pulse, and neither I nor the resident could appreciate that pulse. On the dorsal pedal, there is a weak pulse palpable. The area of the medial malleolus has about a 6 cm in diameter inflammatory erythematous area with a central area about 3 cm in diameter which is in a volcano-shaped distribution which is erythematous with the center crater-appearing lesion to it. This is the area that Dr. Massey plans to evaluate surgically in the next couple hours. This area is mildly warm, mildly tender, and somewhat erythematous but does not appear to be a raging infection in this diabetic gentleman and there is certainly no spontaneous drainage nor any odor. The patient notes minimal sensation in his left foot. He is able to move it and apparently can walk and pivot, using that foot to some degree, in view of the fact he has an AKA on the other side. No evidence of synovitis or joint inflammation. The patient does have some needle tracks on his upper extremities, but none of these appear infected. Remainder of the physical unremarkable. LABORATORIES: Include white blood count 6700, completely normal diff. Sed rate is underwhelming 4. CRP is actually zero, something that is rarely seen. Creatinine is 1.37. Calculated GFR is 58. Urinalysis has not been done. MRSA swab of the nose is positive and blood cultures are negative. We reviewed his older micro from prior admissions. It is mainly negative, though there is some coag-negative Staph in there. IMAGING: An x-ray of the ankle showed medial malleolar soft tissue swelling without bone destruction. An ankle MRI was done, which was more nuanced. It shows concave bone deformity and mild edema along the medial aspect of the distal fibula with periosteal reaction. It is highly suspicious by Radiology for osteomyelitis. IMPRESSION: This patient reports that his left and remaining left lower extremity was normal until about 10 days ago when he banged it on a shopping cart. Since then, there has been progressive swelling and tenderness along the medial malleolus. The radiologists are concerned that his MRI shows there may be underlying osteo, but it would be very unusual that it would develop so rapidly and that it would be associated with CRP and sed rate which are essentially zero in an afebrile man with a normal white count. At this point, I really cannot say whether or not there is an infection present, there, as it has a fairly underwhelming appearance, but he is immunosuppressed and could be hiding a more aggressive infection than we recognize. In view of the fact he has MRSA in his nose, I think we have to cover him for MRSA. I am not at all comfortable giving vancomycin to this patient with some underlying renal insufficiency. Also, I do not think it is appropriate to give him linezolid in view of the fact he is on chronic Effexor therapy and there is potential for serotonin syndrome. Thus, I think we will proceed with ceftaroline as our MRSA drug. It also provides excellent broad-spectrum coverage for Staph, Strep, and a limited repertoire of gram-negative rods. RECOMMENDATIONS: 1. Will discontinue the current antibiotics which include linezolid and ceftriaxone. 2. Will switch to ceftaroline, which basically has exactly the same coverage as linezolid plus ceftriaxone. 3. We await the findings at surgery today. 4. The patient's discharge plans will hinge on whether or not Dr. Massey finds that there is evidence of osteo and also what organisms are eventually obtained, if any, from the surgical specimens.
--- NOTE | 2016-08-31 17:04 | NUR ---
Off Unit to OR at 1703; A&Ox3, KIRK, IV SL, Jewelry - necklace/earring x1/watch left on bedside table, Pt wearing gown. Pt left via bed with chart and Ceftaroline. Report to Megan Brenner RN prior to pt pickup and made aware that Ceftaroline dose brought up with pt in chart.
--- NOTE | 2016-08-31 17:30 | PCM.HPANE ---
Patient Data Surgeon Admitting Provider:Ania Reyna DO Attending Provider:Ania Reyna DO Primary Care Physician:Trever Lees DO Other Provider: Reason for Visit Dm Abscess On Left Ankle Ht/WT & BMI Height (Feet): 5 Height (Inches): 11.00 Weight (Kilograms): 131.700 Body Mass Index 40.65 Allergies Coded Allergies: hydrocodone (Verified Allergy, Unknown, itching all over, 08/30/16) aspirin (Verified Adverse Reaction, Severe, gi upset, 08/30/16) Past Anesthesia History Anesthesia History: Denies:: Abnormal Airway, Anesthesia Reactions Diabetes History Hx Diabetes?: Yes Type of Diabetes: Type I Glycemic Control: Insulin Dependent MRSA MRSA: Yes (Right lower extremity. ) Medications Active Scripts Levothyroxine (Synthroid)50 Mcg Jxqrdx39 Mcg PO DAILYAC 30 Days Prov:Michael Grissom MD 10/14/13 Reported Medications Chlorthalidone 25 Mg Kcjiio06 Mg PO DAILY #30 08/30/16 Lisinopril 40 Mg Rgirfi33 Mg PO DAILY #30 08/30/16 Metformin (Glucophage)1,000 Mg Tablet1,000 Mg PO BID #60 05/31/15 Insulin Glargine (Lantus U100 Insulin Vial)100 Unit/Ml Vial55 Unit SUBQ BID Ref 0 07/23/14 Gabapentin 600 Mg Qlkfie194 Mg PO TID 30 Days Ref 0 07/23/14 Venlafaxine ER (Effexor XR)150 Mg Cap.er.51n011 Mg PO DAILY #30 CAPSULE Ref 0 09/28/13 Insulin Human Lispro (HumaLOG U100 Insulin Vial)100 Unit/Ml Unit0-40 Unit SUBQ TIDWM PRN sliding scale #1 VIAL Ref 0 10 units subq for every 100 BS 09/28/13 Aripiprazole (Abilify)10 Mg Lnzgfl03 Mg PO DAILY 30 Days Ref 0 09/28/13 Discontinued Reported Medications Aspirin 81 Mg Ymgspr70 Mg PO DAILY Ref 0 12/21/14 Lisinopril 20 Mg Ujgcai02 Mg PO DAILY #30 12/21/14 Discontinued Scripts Sulfamethoxazole/Trimeth 800-160 mg (Bactrim DS)1 Each Tablet2 Tablet PO BID # 40 TABLET Ref 0 Prov:Sara Dowd 01/13/16 Cephalexin 500 Mg Pnwtsfw260 Mg PO QID #40 CAPSULE Ref 0 Prov:Sara Dowd MARINE REPORTER 01/13/16 Famotidine (Pepcid)20 Mg Jyhhxl88 Mg PO BID #30 TABLET Prov:Noelle Gamez DO 06/03/15 Atorvastatin Calcium 40 Mg Baykzt25 Mg PO HS #30 TABLET Prov:Noelle Gamez DO 06/03/15 History History of ENT Problems?: Yes HEENT History: Positive for:: Cataracts Denies:: Abnormal Airway Dysphagia Glaucoma Sinus Problem Denture Type: None Teeth Condition: Within Normal Limits Hx of Heart Problems?: Yes Cardiovascular History: Positive for:: Congestive Heart Failure Hypertension Denies:: Cardiac Surgery Chest Pain Edema Heart Murmur Irregular Heartbeat Pacemaker Thrombophlebitis Other History/Comments No CP or hx NM Hx of Respiratory Problem?: No Respiratory History: Denies:: Asthma COPD Chest Surgery Dyspnea Emphysema Hemoptysis Pneumonia Tuberculosis Hx Neurologic Problems?: Yes Neurological History: Positive for:: Headaches Denies:: Alzheimer's Disease CVA Dementia Dizziness Parkinson's Disease Seizures Hx of GI Problems?: Yes Hx of Problems?: Yes Genitourinary History: Denies:: HX of Hemodialysis Kidney Stones Urinary Tract Infection HX of Peritoneal Dialysis: No Male Hx: Denies:: Prostate Problems Scrotal Mass Testicular Surgery Skin History: Denies:: History Skin Disorders? Pressure Ulcers Hx Musculoskeletal Problems?: Yes Musculoskeletal History: Positive for:: Back Injury (L4, L5 fracture) Musculoskeletal Trauma (Hx compartment syndrome. right above the knee amputation) Denies:: Joint Replacement Hx of Psycho/Social Problems?: Yes Psycho Social History: Positive for:: Anxiety Bipolar Disorder Hx Depression Suicide Attempt (10 years ago) Other History/Comment Meth use - twice/week. Last used 3 dd ago Hx Surgeries?: Yes ( rt Aka, rt rotator cuff , appy) Hx Any Other Health Problems?: Yes Other History: Positive for:: Endocrine Disease Hospitalization Thyroid Disease (Hypothyroid) Denies:: Cancer History Blood Transfusions: Positive for:: Accept Blood Products? Denies:: Blood Transfuse Reaction Blood Transfusions Hx Diabetes: YesBedside Blood Glucose: 231 Hx Alcohol Use: YesHx Substance Use: Yes Smoking Status: Current Every Day Smoker Have You Smoked inLast 12 mo: YesApprox How Many Cigarettes/day: 10 Stop/Bang Treated for Sleep Apnea?: No Do You Have a CPAP Machine?: No S-Snoring: Do You Snore Loudly: Yes T-Tired: feel tired, fatigued: No O-Obsered: Observed not breath: No P-Blood Pressure: treated: Yes B- Body Mass Index > 35 kg/m2: Yes A- Age over 50: Yes N- Neck Large Circumference: Yes G- Gender Male: Yes LINDSAY Total Score: 6 Risk Assessment Category Category 1A: Patient has history of documented sleep apnea, and HAS NOT received any narcotic, sedative or anesthesia administration during this stay. Category 1B: Patient has history of documented sleep apnea, and HAS received any narcotic , sedative or anesthesia administration during this stay Category 2: Patient has SUSPECTED Obstructive Sleep Apnea, and HAS received any narcotic , sedative or anesthesia administration during this stay. Category 3: Patient has SUSPECTED Obstructive Sleep Apnea and HAS NOT received narcotic, sedative or anesthesia administration during this stay. Category 4: Outpatient in Procedural Areas with known sleep apnea or who screen positive for High Risk via the STOP/BANG questionnaire. Exam Exam Vital Signs Vital Signs Date Time Temp Pulse Resp B/P Pulse Ox O2 Delivery O2 Flow Rate FiO2 08/31/16 16:41 36.3 94 15 144/63 98 Room Air 08/31/16 12:38 36.4 89 16 157/96 97 Room Air General Appearance: Alert, Oriented X3 HEENT/AIRWAY: MP 2, Neck Movement (FROM) Lungs: Clear to Auscultation, Clear to Percussion Heart: Exam Unremarkable, Regular Rate/Rhythm Meds/Labs/Diagnostics Admission Meds Current Medications Insulin Human Lispro (HumaLOG Insulin Inj) Nutritional Dose to be given pr... [facility] SUBQ Last administered on 08/31/16 08:06; Start 08/30/16 at 22:00 Insulin Glargine (Lantus Insulin Inj) 40 unit BID SUBQ Last administered on 08:07; Start 08/30/16 at 20:40 Aripiprazole (Abilify) 10 mg DAILY PO Last administered on 08/31/16 08:07; Start 08/31/16 at 08:30 Levothyroxine Sodium 50 mcg 50 mcg 0630 PO Last administered on 08/31/16 07:01 ; Start 08/31/16 at 06:30 Ceftriaxone Sodium/Dextrose/ Water (Rocephin Inj/ D5W Minibag Plus) 50 ml @ 100 mls/hr HS IV Last administered on 08/30/16 22:15; Start 08/30/16 at 21:07 ; Stop 08/31/16 at 14:25; Status DC Linezolid (Zyvox) 600 mg BID PO Last administered on 08/31/16 08:08; Start at 21:00; Stop 08/31/16 at 14:25; Status DC Lisinopril (Zestril) 40 mg DAILY PO Last administered on 08/31/16 08:09; Start 08/31/16 at 08:30 Chlorthalidone (Hygroton) 25 mg DAILY PO Last administered on 08/31/16 08:07; Start 08/31/16 at 08:30 Bedside Blood Glucose: 231 Labs Test 08/30/16 17:10 08/31/16 05:30 Neutrophils (%) (Auto) 67.1% (40-74) Lymphocytes (%) (Auto) 23.7% (14-46) Monocytes (%) (Auto) 7.3% (4-12) Eosinophils (%) (Auto) 1.3% (0-5) Basophils (%) (Auto) 0.5% (0-3) Erythrocyte Sedimentation Rate 4mm/hr (0-30) Lactic Acid Level 1.5mmol/L (0.4-2.0) Total Bilirubin 0.4mg/dL (0.0-1.2) Aspartate Amino Transf (AST/SGOT) 33U/L (0-50) Alanine Aminotransferase (ALT/SGPT) 46U/L (0-44) Alkaline Phosphatase 79U/L (25-150) Troponin T < 0.010ug/L (0.0-0.011) C-Reactive Protein < 0.1mg/dL (0.0-0.5) Total Protein 8.2g/dL (6.4-8.4) Albumin 3.9g/dL (3.4-5.0) White Blood Count 6.7th/mm3 (3.8-10.1) Red Blood Count 4.89mil/mm3 (4.40-5.80) Hemoglobin 14.4g/dL (13.8-17.2) Hematocrit 44.8% (41.0-50.0) Mean Corpuscular Volume 91.6fL (81-100) Mean Corpuscular Hemoglobin 29.4pg (27.0-35.0) Mean Corpuscular Hemoglobin Concent 32.1% (32.0-37.0) Red Cell Distribution Width 14.1% (12.3-15.4) Platelet Count 210bil/L (150-400) Sodium Level 138mEq/L (134-144) Potassium Level 5.1mEq/L (3.5-5.2) Chloride Level 100mEq/L (97-108) Carbon Dioxide Level 27mmol/L (18-29) Blood Urea Nitrogen 39mg/dL (6-24) Creatinine 1.37mg/dL (0.76-1.27) Estimat Glomerular Filtration Rate 58mL/min (>59) Glucose Level 224mg/dL (60-99) Calcium Level 8.3mg/dL (8.5-10.1) Plan Impression Patient chart reviewed, patient interviewed and anesthestic plan with risks, benefits, and alternatives discussed, and informed consent obtained. ASA Physical Status: ASA3 Severe Disease (IDDM; meth use; tobacco use) Anesthetic Plan: GA Bene/Risks/Altern/Consents: Yes HP Complete Prior to Induction: Yes Abilio Veliz MD Aug 31, 2016 17:13
[2016-08-31] MEDS ORDERED: Lactated Ringer's 500 ML IV PRN (17:31)
[2016-08-31] MEDS ORDERED: Lactated Ringer's 1,000 ML IV SCH (17:31)
[2016-08-31] MEDS ORDERED: HYDROmorphone 1 mg/mL Inj IVPUSH PRN (17:35)
[2016-08-31] MEDS ORDERED: Phenylephrine 10,000 mCg/mL Inj IVPUSH PRN (17:35)
[2016-08-31] MEDS ORDERED: Ondansetron 2 mg/mL 2 mL Inj IVPUSH PRN (17:35)
[2016-08-31] MEDS ORDERED: fentaNYL-PF 50 mCg/mL 2 mL Inj IVPUSH PRN (17:35)
[2016-08-31] MEDS ORDERED: EPHEDrine Sulfate 50 mg/mL Inj IVPUSH PRN (17:35)
[2016-08-31] MEDS ORDERED: Atropine 0.4 mg/mL Inj IVPUSH PRN (17:35)
[2016-08-31] MEDS ORDERED: MetoCLOpramide 5 mg/mL 2 mL Inj IVPUSH PRN (17:35)
[2016-08-31] MEDS ORDERED: Lidocaine PF 1% 30 mL Inj INFILTRATE ONE (17:50)
[2016-08-31] MEDS ORDERED: Labetalol 5 mg/mL 20 mL Inj IV PRN (18:01)
--- NOTE | 2016-08-31 18:32 | PCM.PODPO ---
Podiatry Operative Report Date of Service: Aug 31, 2016 Date of Service Aug 31, 2016 Pre Operative Diagnosis Left medial ankle abscess Post Operative Diagnosis Left medial ankle abscess, not involving bone Procedure Left medial ankle abscess incision and drainage, deep Surgeon Surgeon: Nhung Massey DPM Assistants: None Indication for Procedure Worsening abscess, with drainage, possibly due to drug injection. Findings Necrotic soft tissue, malodorous purulence, superficial to the medial malleolus. Posterior tibial tendon encountered, appearing intact. Thrombosed distal aspect of the saphenous vein. Details of Procedure The patient was identified in the preoperative holding area and brought back to the operating room. He was placed on the operating table in supine position. General anesthesia was initiated. Timeout protocol was completed. The left ankle and foot were prepped in the usual aseptic manner. The medial prominence with fluctuance was incised centrally with a #10 scalpel and deepened bluntly with the curved hemostat. Ample purulence was encountered. A culture swab was obtained of this exudate. The wound was irrigated with normal saline, approximately 1 L. Loose, nonviable appearing soft tissue was excised with Metzenbaum scissors. The distal aspect of the saphenous vein was found to be thrombosed and excised at the same time. Cautery was performed of any bleeding vessels. After repeat irrigation and excision of the original of attenuated soft tissue and necrotic skin, the deep spaces were packed with a quarter inch iodoform packing, normal saline moistened gauze was placed over that, Kerlix to rapid together, and Bean wrap with compression over it. The patient was weaned off of general anesthesia with some airway difficulty. He was transported to the recovery room in stable condition with stable vital signs. Grafts, Implants: None Complications There were no periprocedural complications identified. Condition Stable Anesthetic Administered: GA Drains: None Catheters: None Output, Estimated Blood Loss: 20 (ml) Blood Admin during surgery: No Surgical Cast or Splint: None Surgical Specimen Removed: Yes Specimen sent to Pathology: No Surgical Specimen description: Culture specimen was obtained and forwarded to the lab. Post Operative Plan Bed rest for 24 hours, then weightbearing as tolerated. Daily packing changes with wet-to-dry dressings. Anticipate delayed closure on Saturday or Saturday. The closure will likely happen at the bedside. I do not anticipate the patient needing to return to the operating room. Nhung Massey DPM Aug 31, 2016 18:32
[2016-08-31] MEDS: Ceftaroline Inj 600 MG in Dextrose 5% 250 ML IV SCH ×2 (18:42→20:32)
--- NOTE | 2016-08-31 18:50 | NUR ---
Arrival from PACU Pt arrived back on OSC from surgery at 1845. pt is alert and oriented x 3 and denies shortness of breath, chest pain and discomfort. Pt's leg foot staci wrapped and elevated on pillows without drainage noted. Pt able to move toes and denies numbness and tingling. Care ongoing.
[2016-08-31] MEDS: Mupirocin 2% 22 Gm Ointment NASAL SCH (20:52)
--- NOTE | 2016-08-31 23:59 | PCM.PNMED ---
Subjective Date of Service Aug 31, 2016 Subjective PAtient is see in PACU after his I&D. Dr. Massey has noted extensive purulence in the wound. He says he did fine with BG today with his current regimen. He has no concerns. ID has put him on Teflaro to avoid interaction between Linezolid and patient's SSRI Exam Vital Signs Vital Sign - Last Date Time Temp Pulse Resp B/P Pulse Ox O2 Delivery O2 Flow Rate FiO2 08/31/16 19:55 36.7 82 17 157/65 97 Room Air 08/31/16 19:20 3 Intake and Output 08/30/16 08/30/16 08/31/16 Cumulative From/Thru 15:00 23:00 07:00 08/30/16 14:29 - 08/31/16 05:10 Intake Total 1000 ml 1032 ml 2032 ml Output Total 250 ml 250 ml Balance 1000 ml 782 ml 1782 ml Intake Oral 800 ml 800 ml IV Total 1000 ml 232 ml 1232 ml Output Urine Total 250 ml 250 ml # Bowel Movements 1 1 Exam General: NAD, laying in bed, morbidly obese, decreased leg tremors HEENT: NCAT, poor dentition Eyes: [place] conjunctivae. No ptosis, PERRL Neck: Large neck No masses, trachea midline, no thyromegaly Lungs: CTA with normal respiratory effort, no crackles or wheezes CV: RRR, no murmurs/rubs/gallops, normal PMI GI: Soft, non-tender with no hepatosplenomegaly MSK: Missing right lower extremity, pedal pulses are present. Neuro: Sensation is not altered in the foot 6Skin: Warm and dry. LEft foot is mostly bandaged Psych: appropriate affect IVs and Medications IV Fluids None Medications Reviewed: Medications were reviewed in detail Lab and Diagnostics Result Diagram: 08/31/16 0530 08/31/16 0530 X-Rays, CTs and MRIs PROCEDURE: US EXTREMITY SONOGRAM LIMITED ([id number]) INDICATIONS: ? abscess IMPRESSION: There is phlegmonous edematous tissue with increased vascularity but no abscess. Dictated by: Abilio Seaman M.D. on 08/30/2016 at 17:39 Approved by: Abilio Seaman M.D. on 08/30/2016 at 17:41 NDICATIONS: 56-year-old male with medial left ankle abscess for 10 days. IMPRESSION: Medial malleolar soft tissue swelling, without underlying bony destruction to suggest advanced bony infection. Dictated by: Salty Resendiz M.D. on 08/30/2016 at 15:13 Approved by: Salty Resendiz M.D. on 08/30/2016 at 15:14 12-lead ECG Sinus tach, RBBB, LAFB Assessment & Plan This is a 56-year-old male with chronic cellulitis problems, diabetes, hep C, substance abuse, peripheral vascular disease, hypertension, diabetes that is uncontrolled presenting today fit the cellulitis of the left medial malleolus Assessment #1 cellulitis of the left medial malleolus,, POA -- Zosyn was given in the ER, linezolid plus ceftriaxone due to his renal function and large body habitus differing vancomycin: these were ordered once pt was on the floor -- ESR and CRP are ordered: WNL -- MRI of the left foot is ordered and showed concern for osteomyelitis -- Pain control with oxycodone 5 mg every 4 hours when necessary -- ID consult is placed: They have changed abx to Teflaro -- consult Dr. Massey : She took pt to OR for I&D later in the day, noted abundant purulence Assessment #2: Hypertension, chronic active -- Lisinopril was cut to 20 mg daily due to poor renal function -- Elected to use amlodipine rather than to chlorthalidone due to poor renal function -- Daily BMP, CBC, ESR, CRP Assessment #3 diabetes mellitus insulin-dependent, chronic uncontrolled active, states he took insulin this morning -- We will contact home insulin of 55 units twice a day Lantus to 40 units twice a day Lantus -- Sliding scale coverage high-level insulin Humalog -- Before meals at bedtime checks -- Discontinue home medication metformin -- A1C = 11.4 per ED Assessment #4 peripheral neuropathy, chronic reactive -- Continue medication Assessment #5 depression, chronic, active -- Cont venlafaxine Assessment #6 hypothyroidism, chronic active -- Continue home medication levothyroxine Will need to wait for the foot cx from OR before deciding the final abx Pain Evaluation: Adequate Pain Control Resuscitation Status: CPR: Attempt Resuscitation Time spent 25 min Ania Reyna DO Aug 31, 2016 23:59
[2016-09-01] VITALS (7 sets, daily range): BP systolic 141–164; BP diastolic 66–96; PULSE 81–93; RESP 17–18; O2SAT 96–100
--- NOTE | 2016-09-01 02:17 | NUR ---
Pain Pt c/o LT foot pain 08/25. Refused ice packs at this time . Pt given Oxycodone 5mg. On reassessment pt appeared to be asleep with cont pulse monitoring. No distress reported or observed. Care ongoing.
[2016-09-01] MEDS: 0.9% Sodium Chloride 1,000 ML IV SCH ×2 (03:14→17:07)
[2016-09-01] MEDS: Ceftaroline Inj 600 MG in Dextrose 5% 250 ML IV SCH ×2 (06:18→17:40)
[2016-09-01 06:36] LABS: Mean Corpuscular Hemoglobin 30.3 pg (27.0-35.0)
[2016-09-01] MEDS ORDERED: Insulin GLARgine 100 Unit/mL Syringe SUBQ SCH (08:30)
[2016-09-01] MEDS: ARIPiprazole 10 mg Tablet PO SCH (08:32)
[2016-09-01] MEDS: Mupirocin 2% 22 Gm Ointment NASAL SCH ×2 (08:32→20:24)
[2016-09-01] MEDS: Insulin LISPRO 300 Unit/3 mL Inj SUBQ SCH ×4 (08:32→21:26)
[2016-09-01] MEDS: Venlafaxine XR 75 mg ER24 Capsule PO SCH (09:35)
--- NOTE | 2016-09-01 13:20 | PROG NOTE ---
[address] [address] PROGRESS NOTE PATIENT: BELLO LAMB : 1960 MR#: [id number] ADMIT: 08/30/2016 JOB ID: [id number] INFECTIOUS DISEASE FOLLOWUP: DATE: 09/01/2016 REASON FOR FOLLOWUP: Left medial malleolar abscess. INTERVAL HISTORY: Since I last saw the patient yesterday afternoon, he was taken to the operating room by Dr. Massey. She found what appeared to be an abscess and did an extensive debridement. She stated she found some purulent material which she sent for culture. She also encountered some malodorous devitalized areas within the site of the "volcano" that developed over his medial malleolus. For his part, the patient feels quite well today. He is having very little ankle pain and his ankle is contained under a large dressing that Dr. Massey applied last night that is not to be removed today. He states he is having no fevers, chills, or sweats. He is eating hardly and has no pulmonary complaints. PHYSICAL EXAMINATION: Reveals an afebrile gentleman, in no acute distress. Temp 36.6, pulse 93, respiratory rate 18, blood pressure 149/83, saturating 97% on room air. He appears benign. He has no skin rash. Lungs without abnormality. His left ankle is wrapped up in a postop dressing. LABORATORY DATA: Labs include a white count of 6000. Sed rate and CRP are basically zero, interestingly. Creatinine started off at 1.8; it is now down to 1.02. His LFTs are normal except for an ALT of 46. Micro studies include negative blood cultures. A few polys are seen on the Gram stain taken from surgery but no organisms as of yet and I spoke to the Micro Lab. There is growth on the plates. IMPRESSION: This is a strange case of a gentleman who states that his left medial malleolus began to swell after it was struck by a shopping cart 10 or 12 days ago and eventually became more warm and tender and brought him to medical attention where he was admitted and underwent debridement yesterday. The odd part of the story is of course that he is an IV drug user but he states that he has never injected into the medial malleolus area. The other odd part of the story is that his CRP and sed rate are basically at zero levels and he has a normal white count without fever. All of this would be inconsistent with what appeared to be a fairly prominent infection over the left medial malleolus yesterday, but Dr. Massey notes in her operative report that she did encounter what appeared to be purulent material, so I hopefully find an answer. Perhaps this is an organism of limited virulence which has caused this particular infection. RECOMMENDATIONS: 1. Will continue with ceftaroline at this time as our sole antibiotic. Note that initially MRSA screen was interpreted as positive and it has now been switched to negative. Until we have absolute clarity on what's growing in that ankle, I am inclined to leave him on a drug that would provide broader spectrum coverage. 2. Will see this patient with you again on Saturday, September 03, and hopefully then will have final cultures from the ankle and be able to make a definitive plan for discharge. 3. I would avoid placing a central line or PICC line in this patient as we may be able to facilitate treatment with oral therapy or perhaps dalbavancin.
--- NOTE | 2016-09-01 14:19 | NUR ---
Elevated blood glucose Pt's BG has been over 200. Asked pt what his BG usually is when he is home, and he replied, "400 or 500." Asked pt again to make sure I heard him correctly. Explained to pt that BG that high is extremely dangerous and could be deadly. Asked pt about his current insulin dosage; he thought maybe it should be increased. Asked pt if he had tried reducing his BG by diet changes. Taught pt about the negative affect of carbohydrates for pt's with diabetes. Advised pt to look at ADA website to obtain dietary information for people with diabetes. Pt was agreeable to this idea.
--- NOTE | 2016-09-01 15:03 | NUR ---
Social Work: Screening D: EMR reviewed. Pt is a 56 y/o male admitted for DM abscess of left ankle. MELINDA met with pt at bedside to conduct initial screening. Pt was alert and oriented x3. SW explained role and wrote phone number on white board. SW confirmed pt has completed DPOA/advanced directive ppw and encouraged pt to provide a copy to the hospital. Pt gave verbal consent to contact his daughter Jen Linn ([phone]) for discharge planning. Pt's insurance is [employer] and Medicaid. Pt does not have a DAVID caregiver. Pt is independent at baseline. Pt lives at home with his SO and roommates in [facility]. SW discuss pt's hx of IVDU. Pt expressed interest in receiving in-patient services. MELINDA asked if pt would be willing to complete a CD assessment with [facility]. Pt stated he would like to complete CD assessment and get resources. SW provided KARAN, pt completed, and MELINDA placed completed KARAN in hard chart. MELINDA contacted Megan and [facility] requesting CD assessment. MELINDA notified pt that CDP would be visiting him today. Pt will receive transport home from SO or friend via POV when medically stable. SW will continue to follow for needs. A: Pt who is independent at baseline. Pt who has hx of IVDU and is willing to have CD assessment by CDP. P: MELINDA referred pt to [facility] for CD assessment. Pt will receive transport home from SO or friend via POV when medically stable. SW will continue to follow for needs. YOHANA Worley
--- NOTE | 2016-09-01 17:44 | PCM.PNMED ---
Subjective Date of Service Sep 01, 2016 Subjective Patient has no complaints. He has visitors in the room, GF and son. Staff will remove visitors per hosp policy. Patient is vague today about his symptoms, just says he can not move much at all now because the only leg he has is operated on Exam Vital Signs Vital Sign - Last Date Time Temp Pulse Resp B/P Pulse Ox O2 Delivery O2 Flow Rate FiO2 09/01/16 17:36 91 160/96 98 Room Air 09/01/16 16:38 36.5 18 2.00 Intake and Output 08/31/16 08/31/16 09/01/16 Cumulative From/Thru 15:00 23:00 07:00 08/30/16 14:29 - 09/01/16 05:06 Intake Total 2961 ml 1200 ml 6193 ml Output Total 1320 ml 2100 ml 3670 ml Balance 1641 ml -900 ml 2523 ml Intake Oral 1472 ml 1200 ml 3472 ml IV Total 1489 ml 2721 ml Output Urine Total 1300 ml 2100 ml 3650 ml Estimated Blood Loss 20 ml 20 ml # Bowel Movements 0 1 Exam General: NAD, sitting up in bed, morbidly obese, decreased leg tremors HEENT: NCAT, poor dentition Eyes: [place] conjunctivae. No ptosis, PERRL Neck: Large neck No masses, trachea midline, no thyromegaly Lungs: CTA with normal respiratory effort, no crackles or wheezes CV: RRR, no murmurs/rubs/gallops, normal PMI GI: Soft, non-tender with no hepatosplenomegaly MSK: Missing right lower extremity, pedal pulses are present. Neuro: Sensation is not altered in the foot 6Skin: Warm and dry. LEft foot is mostly covered in dressings, a small woozing ulcer proximally on L lower leg Psych: appropriate affect IVs and Medications IV Fluids NSS 30 cc/hr Medications Reviewed: Medications were reviewed in detail Lab and Diagnostics Result Diagram: 09/01/16 0600 09/01/16 0600 X-Rays, CTs and MRIs PROCEDURE: US EXTREMITY SONOGRAM LIMITED ([id number]) INDICATIONS: ? abscess IMPRESSION: There is phlegmonous edematous tissue with increased vascularity but no abscess. Dictated by: Abilio Seaman M.D. on 08/30/2016 at 17:39 Approved by: Abilio Seaman M.D. on 08/30/2016 at 17:41 NDICATIONS: 56-year-old male with medial left ankle abscess for 10 days. IMPRESSION: Medial malleolar soft tissue swelling, without underlying bony destruction to suggest advanced bony infection. Dictated by: Salty Resendiz M.D. on 08/30/2016 at 15:13 Approved by: Salty Resendiz M.D. on 08/30/2016 at 15:14 12-lead ECG Sinus tach, RBBB, LAFB Assessment & Plan This is a 56-year-old male with chronic cellulitis problems, diabetes, hep C, substance abuse, peripheral vascular disease, hypertension, diabetes that is uncontrolled presenting today fit the cellulitis of the left medial malleolus Assessment #1 cellulitis of the left medial malleolus,, POA -- Zosyn was given in the ER, linezolid plus ceftriaxone due to his renal function and large body habitus differing vancomycin: these were ordered once pt was on the floor -- ESR and CRP are ordered: WNL -- MRI of the left foot is ordered and showed concern for osteomyelitis -- Pain control with oxycodone 5 mg every 4 hours when necessary -- ID consult is placed: They have changed abx to Teflaro, no plans for PICC line due to IVDU. Dr. Mancilla recommends that we wait till early next week to discharge patient. -- consult Dr. Massey : pt is s/p I&D on 09/01, noted abundant purulence Assessment #2: Hypertension, chronic active -- Lisinopril, chlorthalidone home meds -- Added amlodipine -- Daily BMP, CBC, ESR, CRP Assessment #3 diabetes mellitus insulin-dependent, chronic uncontrolled active, states he took insulin this morning -- Lantus to 45 units twice a day Lantus -- Sliding scale coverage high-level insulin Humalog -- Before meals at bedtime checks -- May restart home medication metformin as creatinine normalized -- A1C = 11.4 per ED Assessment #4 peripheral neuropathy, chronic reactive -- Continue medication Assessment #5 depression, chronic, active -- Cont venlafaxine Assessment #6 hypothyroidism, chronic active -- Continue home medication levothyroxine Will need to wait for the foot cx from OR before deciding the final abx, d/c home early next week per ID and Podiatry. Absolutely no PICC line Pain Evaluation: Adequate Pain Control Resuscitation Status: CPR: Attempt Resuscitation Time spent 25 min Ania Reyna DO Sep 01, 2016 17:43
--- NOTE | 2016-09-01 20:17 | PCM.PNPOD ---
Subjective Date of Service: Sep 01, 2016 Date of Service: Sep 01, 2016 Visit Information: Reason for Visit Dm Abscess On Left Ankle Surgery/Surgery Date Post-Op Day # Date of Admission: Aug 30, 2016 at 17:33 Hospital Day # Subjective: 56 year old male evaluated at bedside in NAD. no complaints of pain in the left ankle. Patient states that he bumped his ankle on a self propelled shoppingcart causing a small wound which then turned into an abscess. patient has a long history of IV drug use and admits to injecting meth 5 to 7 days ago, patient states that he last smoked meth 3 or 4 days ago. denies injecting into his ankle. Postop General: No Complaints Gastrointestinal: Good Appetite Objective Vital Sign - Last Date Time Temp Pulse Resp B/P Pulse Ox O2 Delivery O2 Flow Rate FiO2 09/01/16 17:36 91 160/96 98 Room Air 09/01/16 16:38 36.5 18 2.00 Intake and Output 08/31/16 08/31/16 09/01/16 Cumulative From/Thru 15:00 23:00 07:00 08/30/16 14:29 - 09/01/16 05:06 Intake Total 2961 ml 1200 ml 6193 ml Output Total 1320 ml 2100 ml 3670 ml Balance 1641 ml -900 ml 2523 ml Intake Oral 1472 ml 1200 ml 3472 ml IV Total 1489 ml 2721 ml Output Urine Total 1300 ml 2100 ml 3650 ml Estimated Blood Loss 20 ml 20 ml # Bowel Movements 0 1 Result Diagram: 09/01/16 0600 09/01/16 0600 Lab Test 08/30/16 17:10 09/01/16 06:00 Neutrophils (%) (Auto) 67.1% (40-74) Lymphocytes (%) (Auto) 23.7% (14-46) Monocytes (%) (Auto) 7.3% (4-12) Eosinophils (%) (Auto) 1.3% (0-5) Basophils (%) (Auto) 0.5% (0-3) Erythrocyte Sedimentation Rate 4mm/hr (0-30) Lactic Acid Level 1.5mmol/L (0.4-2.0) Total Bilirubin 0.4mg/dL (0.0-1.2) Aspartate Amino Transf (AST/SGOT) 33U/L (0-50) Alanine Aminotransferase (ALT/SGPT) 46U/L (0-44) Alkaline Phosphatase 79U/L (25-150) Troponin T < 0.010ug/L (0.0-0.011) C-Reactive Protein < 0.1mg/dL (0.0-0.5) Total Protein 8.2g/dL (6.4-8.4) Albumin 3.9g/dL (3.4-5.0) White Blood Count 6.0th/mm3 (3.8-10.1) Red Blood Count 4.78mil/mm3 (4.40-5.80) Hemoglobin 14.5g/dL (13.8-17.2) Hematocrit 43.5% (41.0-50.0) Mean Corpuscular Volume 91.0fL (81-100) Mean Corpuscular Hemoglobin 30.3pg (27.0-35.0) Mean Corpuscular Hemoglobin Concent 33.3% (32.0-37.0) Red Cell Distribution Width 13.8% (12.3-15.4) Platelet Count 198bil/L (150-400) Sodium Level 137mEq/L (134-144) Potassium Level 5.1mEq/L (3.5-5.2) Chloride Level 101mEq/L (97-108) Carbon Dioxide Level 28mmol/L (18-29) Blood Urea Nitrogen 26mg/dL (6-24) Creatinine 1.02mg/dL (0.76-1.27) Estimat Glomerular Filtration Rate 81mL/min (>59) Glucose Level 195mg/dL (60-99) Calcium Level 8.4mg/dL (8.5-10.1) Exam General: Alert, Oriented X3, Cooperative, No Acute Distress Lungs: Clear to Auscultation, Clear to Percussion Lower Extremities: Left: Edema localized (medial malleolus) Extremity warm (erythema along the medial malleolus, central puncture, hyper granulation) Lower Extremity Pulses: Palpable: Left Dorsalis Pedis Left Posterior Tibal Podiatry WOUND : Wound Location/Description left medial ankle incision and drainage wound full thickness to subcutaneous tissue without exposed bone or tendon. no mal odor. no signs of continued infection. no surrounding erythema. the wound bed is 100% granular. Surgical Cast or Splint: None Assessment & Plan Impression stable status post left ankle Incision and drainage. history of right above knee amputation. Problems: (1) Abscess of left leg excluding foot Plan: dressing changed today and wound packed with 1/4 inch iodoform packing gauze covered with sterile 4x4 gauze and kerlix. Follow antibiotic recs per Dr. Mancilla. This patient is in my opinion not a good candidate for an outpatient picc line due to long history of IV drug abuse. podiatry will follow daily. likely safe for DC to outpatient care saturday or saturday Status: Acute ICD Code: L02.416 (2) Uncontrolled diabetes mellitus with diabetic neuropathy Status: Acute ICD Code: E11.40 (3) Hx of AKA (above knee amputation) Status: Acute ICD Code: Z89.619 Bradford Reaves DPM Sep 01, 2016 20:17
[2016-09-01] MEDS: Insulin GLARgine 100 Unit/mL Syringe SUBQ SCH (21:26)
--- NOTE | 2016-09-01 23:46 | NUR ---
Transferred care to Margret Guillermo Initial assessment and med pass completed, HS blood glucose of 275 and given Lantus as well as correctional dose. Care transferred and RN informed.
[2016-09-02 05:02] VITALS: BP 152/84; PULSE 88; RESP 17; O2SAT 99
[2016-09-02] MEDS: Ceftaroline Inj 600 MG in Dextrose 5% 250 ML IV SCH ×2 (06:02→17:28)
--- NOTE | 2016-09-02 06:48 | NUR ---
NOC PT medicated once for pain to LLE. PT reports severe neuropathy to all extremities and was unable to tell that I was even touching his LLE. Dressing in place to L foot. Toes slightly swollen. PT pulse weak to palpation. IV abx infused per order. Voiding per urinal. WIll CTM at this time. Dispo pending. PT polite and cooperative with all care.
[2016-09-02] MEDS: Insulin GLARgine 100 Unit/mL Syringe SUBQ SCH ×2 (09:21→20:35)
[2016-09-02] MEDS: Venlafaxine XR 75 mg ER24 Capsule PO SCH (09:21)
[2016-09-02] MEDS: Insulin LISPRO 300 Unit/3 mL Inj SUBQ SCH ×4 (09:21→20:36)
[2016-09-02] MEDS: Mupirocin 2% 22 Gm Ointment NASAL SCH ×2 (09:22→19:35)
[2016-09-02] MEDS: ARIPiprazole 10 mg Tablet PO SCH (09:22)
--- NOTE | 2016-09-02 13:32 | PCM.PNMED ---
Subjective Date of Service Sep 02, 2016 Subjective Some left ankle pain but controlled adequately with medication Exam Vital Signs Vital Sign - Last Date Time Temp Pulse Resp B/P Pulse Ox O2 Delivery O2 Flow Rate FiO2 09/02/16 05:02 36.8 88 17 152/84 99 Room Air 09/01/16 16:38 2.00 Intake and Output 09/01/16 09/01/16 09/02/16 Cumulative From/Thru 15:00 23:00 07:00 08/30/16 14:29 - 09/02/16 05:02 Intake Total 3020 ml 796 ml 41872 ml Output Total 1325 ml 1800 ml 6795 ml Balance 1695 ml -1004 ml 3214 ml Intake Oral 1894 ml 796 ml 6162 ml IV Total 1126 ml 3847 ml Output Urine Total 1325 ml 1800 ml 6775 ml Estimated Blood Loss 20 ml # Bowel Movements 0 1 Exam General: Alert and oriented, no acute distress Heart: Regular Lungs: Clear anteriorly and laterally Abdomen: Soft, non-tender Extremities: Right foot and ankle with dressing in place IVs and Medications Medications Reviewed: Medications were reviewed in detail Lab and Diagnostics Result Diagram: 09/01/16 0600 09/01/16 0600 X-Rays, CTs and MRIs PROCEDURE: US EXTREMITY SONOGRAM LIMITED ([id number]) INDICATIONS: ? abscess IMPRESSION: There is phlegmonous edematous tissue with increased vascularity but no abscess. Dictated by: Abilio Seaman M.D. on 08/30/2016 at 17:39 Approved by: Abilio Seaman M.D. on 08/30/2016 at 17:41 NDICATIONS: 56-year-old male with medial left ankle abscess for 10 days. IMPRESSION: Medial malleolar soft tissue swelling, without underlying bony destruction to suggest advanced bony infection. Dictated by: Salty Resendiz M.D. on 08/30/2016 at 15:13 Approved by: Salty Resendiz M.D. on 08/30/2016 at 15:14 12-lead ECG Sinus tach, RBBB, LAFB Assessment & Plan This is a 56-year-old male with chronic cellulitis problems, diabetes, hep C, substance abuse, peripheral vascular disease, hypertension, diabetes that is uncontrolled presenting today fit the cellulitis of the left medial malleolus Assessment #1 cellulitis of the left medial malleolus,, POA -- Zosyn was given in the ER, linezolid plus ceftriaxone due to his renal function and large body habitus differing vancomycin: these were ordered once pt was on the floor -- ESR and CRP are ordered: WNL -- MRI of the left foot showed concern for osteomyelitis -- Pain control with oxycodone 5 mg every 4 hours when necessary -- ID consulted: have changed abx to Teflaro, no plans for PICC line due to IVDU. Dr. Mancilla recommends that we wait till early next week to discharge patient when culture results are available and plan can be made -- consulted Dr. Massey : pt is s/p I&D on 09/01, noted abundant purulence Assessment #2: Hypertension, chronic active -- Lisinopril, chlorthalidone home meds -- Added amlodipine -- SBP approx 150's Assessment #3 diabetes mellitus insulin-dependent, chronic uncontrolled active, states he took insulin this morning -- Lantus to 45 units twice a day Lantus (outpatient 55 bid) -- Sliding scale coverage high-level insulin Humalog -- Before meals at bedtime checks, high 100's today -- Will restart home medication metformin -- A1C = 11.4 per ED Assessment #4 peripheral neuropathy, chronic reactive -- Continue medication Assessment #5 depression, chronic, active -- Cont venlafaxine Assessment #6 hypothyroidism, chronic active -- Continue home medication levothyroxine Will need to wait for the foot cx from OR before deciding the final abx, d/c home early next week per ID and Podiatry. Absolutely no PICC line Resuscitation Status: CPR: Attempt Resuscitation Kirti Carrillo MD Sep 02, 2016 13:32
[2016-09-02 15:07] VITALS: BP 112/62; PULSE 93; RESP 18; O2SAT 96
--- NOTE | 2016-09-02 16:27 | NUR ---
Arm Swelling Patients left forearm swollen this AM before saline locking IV after antibiotics administration. Was able to flush PIV without any issue and upon pull back blood was noted. IV flushed once more. Instructed patient that while in the shower with IV covered with plastic to run warm water over forearm to help decrease the tightness. Upon reassessment of left forearm, the swelling is gone completely and PIV flushed without any issue. Continuing to assess IV site and hourly rounding continues. Addendum: 09/02/16 at 1849 by SKYLER RAJAN RN After 45 minutes of IV abx. infusion, patient reported that he was having left arm pain. Upon assessment, swelling and tightness was noted. IV infusion stopped. PIV FEDERICO'freddie. IV therapy called as patient is a hard stick, has had IV therapy place PIV before, and is an IV drug user. Warm compress applied to forearm. Patient reports relief from pain.
--- NOTE | 2016-09-02 20:05 | NUR ---
Visitors Talked with SO , Amanda Pyle, this evening. After talking with several hospital care givers it was thought best that we discourage visitors at this time until patient is better medically managed. Amanda accepted this proposal without question. Her contact number for future reference is [phone].
[2016-09-02 20:23] VITALS: BP 164/93; PULSE 94; RESP 18; O2SAT 94
[2016-09-03 03:44] VITALS: BP 105/66; PULSE 86; RESP 18; O2SAT 85
[2016-09-03] MEDS: Ceftaroline Inj 600 MG in Dextrose 5% 250 ML IV SCH ×2 (04:42→17:03)
--- NOTE | 2016-09-03 07:04 | NUR ---
Pain New IV site R hand intact and flushes, reinforced with tape to maintain location. Infusing IV abx at end of shift, no reports of pain at site. Left arm swelling has decreased but arm is still firm. PRN for pain given when requested, less often than previous NOC. Patient is calm and cooperative, no new complaints of SOB or chest pain. Urinal at bedside. Care continues.
[2016-09-03] MEDS: Insulin LISPRO 300 Unit/3 mL Inj SUBQ SCH ×4 (07:53→21:32)
[2016-09-03] MEDS: Mupirocin 2% 22 Gm Ointment NASAL SCH ×2 (08:29→20:30)
[2016-09-03] MEDS: Insulin GLARgine 100 Unit/mL Syringe SUBQ SCH ×2 (08:29→21:23)
[2016-09-03] MEDS: ARIPiprazole 10 mg Tablet PO SCH (08:29)
[2016-09-03] MEDS: Venlafaxine XR 75 mg ER24 Capsule PO SCH (08:30)
--- NOTE | 2016-09-03 10:31 | NUR ---
NUTRITION EDUCATION Consult received re diabetic education. Provided diabetic education, pt interested in additional outpatient counseling, referral completed for DM program at [facility].
--- NOTE | 2016-09-03 11:20 | PCM.PNMED ---
Subjective Date of Service Sep 03, 2016 Subjective No complaints Exam Vital Signs Vital Sign - Last Date Time Temp Pulse Resp B/P Pulse Ox O2 Delivery O2 Flow Rate FiO2 09/03/16 03:44 36.7 86 18 105/66 85 Room Air 09/01/16 16:38 2.00 Intake and Output 09/02/16 09/02/16 09/03/16 Cumulative From/Thru 15:00 23:00 07:00 08/30/16 14:29 - 09/03/16 03:47 Intake Total 1491 ml 150 ml 31835 ml Output Total 1300 ml 925 ml 9020 ml Balance 191 ml -775 ml 2630 ml Intake Oral 1036 ml 150 ml 7348 ml IV Total 455 ml 4302 ml Output Urine Total 1300 ml 925 ml 9000 ml Estimated Blood Loss 20 ml # Bowel Movements 1 2 Exam General: Alert and oriented, no acute distress Heart: Regular Lungs: Clear Abdomen: Soft, non-tender Extremities: left foot and ankle with dressing/staci wrap IVs and Medications Medications Reviewed: Medications were reviewed in detail Lab and Diagnostics Result Diagram: 09/01/16 0600 09/01/16 0600 X-Rays, CTs and MRIs PROCEDURE: US EXTREMITY SONOGRAM LIMITED ([id number]) INDICATIONS: ? abscess IMPRESSION: There is phlegmonous edematous tissue with increased vascularity but no abscess. Dictated by: Abilio Seaman M.D. on 08/30/2016 at 17:39 Approved by: Abilio Seaman M.D. on 08/30/2016 at 17:41 NDICATIONS: 56-year-old male with medial left ankle abscess for 10 days. IMPRESSION: Medial malleolar soft tissue swelling, without underlying bony destruction to suggest advanced bony infection. Dictated by: Salty Resendiz M.D. on 08/30/2016 at 15:13 Approved by: Salty Resendiz M.D. on 08/30/2016 at 15:14 12-lead ECG Sinus tach, RBBB, LAFB Assessment & Plan This is a 56-year-old male with chronic cellulitis problems, diabetes, hep C, substance abuse, peripheral vascular disease, hypertension, diabetes that is uncontrolled presenting today fit the cellulitis of the left medial malleolus Assessment #1 cellulitis of the left medial malleolus,, POA -- Zosyn was given in the ER, linezolid plus ceftriaxone due to his renal function and large body habitus differing vancomycin: these were ordered once pt was on the floor -- ESR and CRP are ordered: WNL -- MRI of the left foot showed concern for osteomyelitis -- Pain control with oxycodone 5 mg every 4 hours when necessary -- ID consulted: have changed abx to Teflaro, no plans for PICC line due to IVDU. -- Dr. Mancilla to see today and manage antibiotic therapy, possibly home soon once antibiotic plan made -- as of this am abscess culture with light growth STREP, PROBABLE VIRIDANS ID AND SENS TO FOLLOW -- consulted Dr. Massey : pt is s/p I&D on 09/01, noted abundant purulence -- assuming podiatry will also reassess today Assessment #2: Hypertension, chronic active -- Lisinopril, chlorthalidone home meds -- Added amlodipine -- SBP variable readings, adequate control for now, can have outpatient follow up Assessment #3 diabetes mellitus insulin-dependent, chronic uncontrolled active, states he took insulin this morning -- Lantus to 45 units twice a day Lantus (outpatient 55 bid) -- Sliding scale coverage high-level insulin Humalog -- Before meals at bedtime checks, high 100's today -- Will restart home medication metformin -- A1C = 11.4 per ED Assessment #4 peripheral neuropathy, chronic reactive -- Continue medication Assessment #5 depression, chronic, active -- Cont venlafaxine Assessment #6 hypothyroidism, chronic active -- Continue home medication levothyroxine Will need to wait for the foot cx from OR before deciding the final abx, d/c home early next week per ID and Podiatry. Absolutely no PICC line Resuscitation Status: CPR: Attempt Resuscitation Kirti Carrillo MD Sep 03, 2016 11:20
[2016-09-03 12:57] VITALS: BP 161/77; PULSE 54; RESP 18; O2SAT 95
--- NOTE | 2016-09-03 15:13 | NUR ---
Social Work: Continued Discharge Planning D: EMR reviewed. Pt is on day 4 of hospitalization. Per MD in AM multi-disciplinary rounds, pt is awaiting pending cultures and ID to determine ABX at discharge. CDP saw pt 09/01 and pt declined inpt services. Pt requested CD resources to schedule inpt treatment with the guidance of his PCP. Pt has hx of IVDU and therefore can't have a PICC line placed for home ABX. SW will continue to follow for ABX needs at discharge. A: Pt who has DAVID and hx of IVDU at baseline. P: Pt states his caregiver will provide transport home via POV when pt is medically stable. Pt has hx of IVDU and therefore can't have a PICC line placed for home ABX. SW will continue to follow for ABX needs at discharge. YOHANA Worley Addendum: 09/03/16 at 1518 by DEREK NORRIS Pt does not have DAVID. Please disregard pt's DAVID caregiver [place] - entered on wrong pt. All other notes are correct. Pt will transport home via POV with SO when medically stable. YOHANA Worley
--- NOTE | 2016-09-03 18:11 | PCM.PNPOD ---
Subjective Date of Service: Sep 03, 2016 Visit Information: Reason for Visit Dm Abscess On Left Ankle Surgery/Surgery Date 08/31/2016 I&D left ankle abscess Post-Op Day # 3 Date of Admission: Aug 30, 2016 at 17:33 Postop General: No Complaints Gastrointestinal: Good Appetite Pain Management: PO Neurological: Numbness Objective Vital Sign - Last Date Time Temp Pulse Resp B/P Pulse Ox O2 Delivery O2 Flow Rate FiO2 09/03/16 12:57 36.8 54 18 161/77 95 Room Air 09/01/16 16:38 2.00 Intake and Output 09/02/16 09/02/16 09/03/16 Cumulative From/Thru 15:00 23:00 07:00 08/30/16 14:29 - 09/03/16 03:47 Intake Total 1491 ml 150 ml 81018 ml Output Total 1300 ml 925 ml 9020 ml Balance 191 ml -775 ml 2630 ml Intake Oral 1036 ml 150 ml 7348 ml IV Total 455 ml 4302 ml Output Urine Total 1300 ml 925 ml 9000 ml Estimated Blood Loss 20 ml # Bowel Movements 1 2 Result Diagram: 09/01/16 0600 09/01/16 0600 Lab Test 08/30/16 17:10 09/01/16 06:00 Neutrophils (%) (Auto) 67.1% (40-74) Lymphocytes (%) (Auto) 23.7% (14-46) Monocytes (%) (Auto) 7.3% (4-12) Eosinophils (%) (Auto) 1.3% (0-5) Basophils (%) (Auto) 0.5% (0-3) Erythrocyte Sedimentation Rate 4mm/hr (0-30) Lactic Acid Level 1.5mmol/L (0.4-2.0) Total Bilirubin 0.4mg/dL (0.0-1.2) Aspartate Amino Transf (AST/SGOT) 33U/L (0-50) Alanine Aminotransferase (ALT/SGPT) 46U/L (0-44) Alkaline Phosphatase 79U/L (25-150) Troponin T < 0.010ug/L (0.0-0.011) C-Reactive Protein < 0.1mg/dL (0.0-0.5) Total Protein 8.2g/dL (6.4-8.4) Albumin 3.9g/dL (3.4-5.0) White Blood Count 6.0th/mm3 (3.8-10.1) Red Blood Count 4.78mil/mm3 (4.40-5.80) Hemoglobin 14.5g/dL (13.8-17.2) Hematocrit 43.5% (41.0-50.0) Mean Corpuscular Volume 91.0fL (81-100) Mean Corpuscular Hemoglobin 30.3pg (27.0-35.0) Mean Corpuscular Hemoglobin Concent 33.3% (32.0-37.0) Red Cell Distribution Width 13.8% (12.3-15.4) Platelet Count 198bil/L (150-400) Sodium Level 137mEq/L (134-144) Potassium Level 5.1mEq/L (3.5-5.2) Chloride Level 101mEq/L (97-108) Carbon Dioxide Level 28mmol/L (18-29) Blood Urea Nitrogen 26mg/dL (6-24) Creatinine 1.02mg/dL (0.76-1.27) Estimat Glomerular Filtration Rate 81mL/min (>59) Glucose Level 195mg/dL (60-99) Calcium Level 8.4mg/dL (8.5-10.1) Exam General: Alert, Oriented X3, Cooperative, No Acute Distress Lower Extremities: Left: Edema localized (resolved) Extremity warm (erythema resolving well. ) Lower Extremity Pulses: Palpable: Left Dorsalis Pedis Left Posterior Tibal Podiatry WOUND : Wound Location/Description Medial malleolar wound is granulating in nicely. No tunneling, no packing necessary. Total size 3.5 x 2cm and 0.4cm deep in one area, otherwise 0.2cm along margins. Periwound skin is dry and flaky. Mild serosanguineous drainage. Surgical Cast or Splint: None Assessment & Plan Problems: (1) Abscess of left leg excluding foot Plan: Left ankle dressing changed today with saline moistened sterile 4x4 gauze and kerlix, compressed with an Bean. Continue daily changes. Follow antibiotic recs per Dr. Mancilla, likely Augmentin PO after discharge. OK to DC tomorrow and follow up with me next 09/11/2016, 2:40pm, at Podiatry office, [facility]. Patient is aware of location. Status: Acute ICD Code: L02.416 (2) Uncontrolled diabetes mellitus with diabetic neuropathy Status: Acute ICD Code: E11.40 (3) Hx of AKA (above knee amputation) Status: Acute ICD Code: Z89.619 Nhung Massey DPM Sep 03, 2016 18:11
--- NOTE | 2016-09-03 18:26 | NUR ---
Pain When asking patient about his pain, he continuously stated "it's tolerable.". After asking patient to put a number to describe the pain, he would say a 6/10 on the pain scale. Talked with patient about pain management and keeping up with a regimen to decrease discomfort and increase mobility. Patient showed he understood verbally. Continuing to assess pain.
[2016-09-03 21:10] VITALS: BP 150/83; PULSE 88; RESP 20; O2SAT 97
--- NOTE | 2016-09-03 21:55 | PROG NOTE ---
[address] [address] PROGRESS NOTE PATIENT: BELLO LAMB : 1960 MR#: [id number] ADMIT: 08/30/2016 JOB ID: [id number] DATE: 09/03/2016 REASON FOR FOLLOWUP: Left medial ankle soft tissue infection. INTERVAL HISTORY: The patient underwent debridement of the volcano resembling left medial malleolus lesion late last week. The patient reports since his surgery he has been doing quite well, and there are plans for Dr. Massey to come by and evaluate the wound and perhaps do a delayed closure this evening. For his part, the patient feels fine and he denies fevers, chills, sweats, cough, GI symptoms or pain in that foot. PHYSICAL EXAMINATION: Reveals an afebrile gentleman, temperature 36.8, pulse 54, respiratory rate 18, blood pressure 161/77. He is saturating well on room air. His lungs are clear. His abdomen is benign. He has no skin rash. His left foot is wrapped and it is our understanding that the infectious diseases physician wants it to stay wrapped until they come back to close the wound perhaps later today. LABORATORIES: Include white count always normal, now 6000. His creatinine normal at 1. CRP is 0. Sed rate is 4. Cultures from the debridement are growing a scant growth of what appears to be a strep viridans. IMPRESSION: There is little evidence for infection in this very odd case. Dr. Massey reported encountering some material which was felt to be purulent, but the only thing it seems to be growing is a light growth of apparent strep viridans. No staph have been isolated at all nor has there been any anaerobes. This is a difficult situation, but I suspect this was a limited soft tissue infection at the site of some minor trauma. RECOMMENDATIONS: 1. I think the patient could be discharged as early as tomorrow on oral antibiotics. 2. The oral antibiotics I would use here would be Augmentin 875 p.o. b.i.d. for 10 days and amoxicillin 1 g p.o. b.i.d. for 10 days and these should be both taken with food and basically be three tablets twice a day for the 10 day period. 3. If the cultures come back and show that the organism is resistant to Augmentin, give me a call tomorrow, but otherwise ID will go ahead and sign off as I see no additional issues in this case.
[2016-09-04] MEDS: Ceftaroline Inj 600 MG in Dextrose 5% 250 ML IV SCH (05:22)
[2016-09-04 06:43] VITALS: BP 160/80; RESP 20; O2SAT 94
--- NOTE | 2016-09-04 07:15 | NUR ---
Decline Pain medication Patient states no pain, declines PRN until 0530. Patient postions himself in bed and can dangle at bedside independently. Uses urinal and call light appropriately. Plan to discharge 09/04. Bag of clothes dropped off for him, inspected due to IV drug history, then locked in closet and security will release them for his discharge. Care continues
[2016-09-04] MEDS: Insulin LISPRO 300 Unit/3 mL Inj SUBQ SCH ×2 (08:00→11:58)
[2016-09-04 08:38] VITALS: BP 173/83; PULSE 83; RESP 16; O2SAT 94
[2016-09-04] MEDS: Mupirocin 2% 22 Gm Ointment NASAL SCH (08:53)
[2016-09-04] MEDS: Insulin GLARgine 100 Unit/mL Syringe SUBQ SCH (08:54)
[2016-09-04] MEDS: ARIPiprazole 10 mg Tablet PO SCH (08:57)
[2016-09-04] MEDS: Venlafaxine XR 75 mg ER24 Capsule PO SCH (08:57)
[2016-09-04 12:51] VITALS: BP 145/75; PULSE 86; RESP 18; O2SAT 99
[2016-09-04] MEDS ORDERED: AMOX-366 PO (13:17)
[2016-09-04] MEDS ORDERED: AMOX500C2 PO (13:17)
[2016-09-04] MEDS ORDERED: AMLO5TAB2 PO (13:17)
--- NOTE | 2016-09-04 13:19 | PCM.DC.MED ---
Discharge Summary Date of Service Sep 04, 2016 Dates of Hospitalization Date of Hospital Admission Aug 30, 2016 at 17:33 Date of Discharge: Sep 04, 2016 Providers: Admitting Physician: Ania Reyna DO Primary Care Physician: Trever Lees DO Attending Physician: Ania Reyna DO Diagnosis at Time of Discharge Diagnosis at Time of Discharge Cellulitis and abscess of the soft tissues of the foot. HTN, Hypothyroidism , DM II, Depression Consultations Infectious disease, surgery Procedures XRay, CTs & MRIs PROCEDURE: US EXTREMITY SONOGRAM LIMITED ([id number]) INDICATIONS: ? abscess IMPRESSION: There is phlegmonous edematous tissue with increased vascularity but no abscess. Dictated by: Abilio Seaman M.D. on 08/30/2016 at 17:39 Approved by: Abilio Seaman M.D. on 08/30/2016 at 17:41 NDICATIONS: 56-year-old male with medial left ankle abscess for 10 days. IMPRESSION: Medial malleolar soft tissue swelling, without underlying bony destruction to suggest advanced bony infection. Dictated by: Salty Resendiz M.D. on 08/30/2016 at 15:13 Approved by: Salty Resendiz M.D. on 08/30/2016 at 15:14 ECG 12 Lead Sinus tach, RBBB, LAFB Hospital Course Hospital Course: This is a 56-year-old male with PMH of frequents cellulitis, DM II, hep C, substance abuse, peripheral vascular disease, hypertension. Patient presented with redness and edema of the left medial malleolus. HE was diagnosed with abscess, cellulitis. MRI showed concern for osteomyelitis.Patient had I and D on 09/01/[address] Massey. Wound culture grew Strep Mitis sensetive to Penicillin G , intermidiate sensetivity to Amoxicillin. ID was consulted. I discussed culture results and plan of care and discharge with Dr. Mancilla on the day of discharge, he advised Augmentin 875 bid + Amoxicillin 1000 mg PO bid for 10 days. After patient improved he was discharged home with recommendation to follow up with his PCP for further management of his medical problems. Patient Condition @ Discharge: good Discharge Disposition: home Discharge Activity: resume regular activity, patient was advised to avoid heavy physical work or exertion Discharge Diet: soft diet, heart healthy, low fat, low salt, high fiber Information Provided to Patient: information about discharge medications, Discharge Medications: I discussed with patient medication dosage, usage, goals of therapy, side effects, alternatives. During discharge patient was allert, oriented, able to make own informed decisions. We discussed possible severe side effects, adverse reactions, benefits, risks, alternatives of current and newly prescribed medications and diagnostic procedures. Patient verbalized understanding and agreed to current plan of care and discharge. TIME SPENT IN DISCHARGE ACTIVITY: Face to face activity greater then 30 minutes spent in discharge activity. 1. Discussed with patient re: discharge plan of care/treatment, and follow up care/services. 2. Patient agreed with discharge plan and further plan of care, all questions were answered/addressed, no further questions at the time of discharge. Exam Vital Signs (Last) Date Time Temp Pulse Resp B/P Pulse Ox O2 Delivery O2 Flow Rate FiO2 09/04/16 12:51 36.6 86 18 145/75 99 Room Air 09/01/16 16:38 2.00 Test 08/30/16 17:10 09/01/16 06:00 Neutrophils (%) (Auto) 67.1% (40-74) Lymphocytes (%) (Auto) 23.7% (14-46) Monocytes (%) (Auto) 7.3% (4-12) Eosinophils (%) (Auto) 1.3% (0-5) Basophils (%) (Auto) 0.5% (0-3) Erythrocyte Sedimentation Rate 4mm/hr (0-30) Lactic Acid Level 1.5mmol/L (0.4-2.0) Total Bilirubin 0.4mg/dL (0.0-1.2) Aspartate Amino Transf (AST/SGOT) 33U/L (0-50) Alanine Aminotransferase (ALT/SGPT) 46U/L (0-44) Alkaline Phosphatase 79U/L (25-150) Troponin T < 0.010ug/L (0.0-0.011) C-Reactive Protein < 0.1mg/dL (0.0-0.5) Total Protein 8.2g/dL (6.4-8.4) Albumin 3.9g/dL (3.4-5.0) White Blood Count 6.0th/mm3 (3.8-10.1) Red Blood Count 4.78mil/mm3 (4.40-5.80) Hemoglobin 14.5g/dL (13.8-17.2) Hematocrit 43.5% (41.0-50.0) Mean Corpuscular Volume 91.0fL (81-100) Mean Corpuscular Hemoglobin 30.3pg (27.0-35.0) Mean Corpuscular Hemoglobin Concent 33.3% (32.0-37.0) Red Cell Distribution Width 13.8% (12.3-15.4) Platelet Count 198bil/L (150-400) Sodium Level 137mEq/L (134-144) Potassium Level 5.1mEq/L (3.5-5.2) Chloride Level 101mEq/L (97-108) Carbon Dioxide Level 28mmol/L (18-29) Blood Urea Nitrogen 26mg/dL (6-24) Creatinine 1.02mg/dL (0.76-1.27) Estimat Glomerular Filtration Rate 81mL/min (>59) Glucose Level 195mg/dL (60-99) Calcium Level 8.4mg/dL (8.5-10.1) Discharge Medications Discharge Medications Amlodipine (Amlodipine) 5 Mg Tablet 5 MG PO DAILY Prescribed by: ANASTASIA SPANGLER MD Amoxicillin (Amoxicillin) 500 Mg Capsule 1,000 MG PO BID Prescribed by: ANASTASIA SPANGLER MD Amoxicillin/Clav K 875-125 mg (Augmentin 875-125 mg) 1 Each Tablet 1 TABLET PO BID Prescribed by: ANASTASIA SPANGLER MD Aripiprazole (Abilify) 10 Mg Tablet 10 MG PO DAILY (Reported) Chlorthalidone (Chlorthalidone) 25 Mg Tablet 25 MG PO DAILY (Reported) Gabapentin (Gabapentin) 600 Mg Tablet 600 MG PO TID (Reported) Insulin Glargine (Lantus U100 Insulin Vial) 100 Unit/Ml Vial 55 UNIT SUBQ BID ( Reported) Levothyroxine (Levothyroxine) 50 Mcg Tablet 50 MCG PO 0630 Prescribed by: ANASTASIA SPANGLER MD Lisinopril (Lisinopril) 40 Mg Tablet 40 MG PO DAILY (Reported) Metformin (Glucophage) 1,000 Mg Tablet 1,000 MG PO BID (Reported) Venlafaxine ER (Effexor XR) 150 Mg Cap.er.24h 150 MG PO DAILY (Reported) As needed Insulin Human Lispro (HumaLOG U100 Insulin Vial) 100 Unit/Ml Unit 0-40 UNIT SUBQ TIDWM PRN PRN sliding scale (Reported) 10 units subq for every 100 BS Dean Herr MD Sep 04, 2016 13:19 Discharge Medications Discharge Medications Amlodipine (Amlodipine) 5 Mg Tablet 5 MG PO DAILY Prescribed by: ANASTASIA SPANGLER MD Amoxicillin (Amoxicillin) 500 Mg Capsule 1,000 MG PO BID Prescribed by: ANASTASIA SPANGLER MD Amoxicillin/Clav K 875-125 mg (Augmentin 875-125 mg) 1 Each Tablet 1 TABLET PO BID Prescribed by: ANASTASIA SPANGLER MD Aripiprazole (Abilify) 10 Mg Tablet 10 MG PO DAILY (Reported) Chlorthalidone (Chlorthalidone) 25 Mg Tablet 25 MG PO DAILY (Reported) Gabapentin (Gabapentin) 600 Mg Tablet 600 MG PO TID (Reported) Insulin Glargine (Lantus U100 Insulin Vial) 100 Unit/Ml Vial 55 UNIT SUBQ BID ( Reported) Lisinopril (Lisinopril) 40 Mg Tablet 40 MG PO DAILY (Reported) Metformin (Glucophage) 1,000 Mg Tablet 1,000 MG PO BID (Reported) Venlafaxine ER (Effexor XR) 150 Mg Cap.er.24h 150 MG PO DAILY (Reported) As needed Insulin Human Lispro (HumaLOG U100 Insulin Vial) 100 Unit/Ml Unit 0-40 UNIT SUBQ TIDWM PRN PRN sliding scale (Reported) 10 units subq for every 100 BS Dean Herr MD Sep 04, 2016 13:19
[2016-09-04] MEDS ORDERED: LEVO50TA6 PO (15:03)
--- NOTE | 2016-09-04 16:00 | NUR ---
Social Work: Readiness for Discharge D: EMR reviewed. Pt is on day 5 of hospitalization. Per MD in AM multi-disciplinary rounds, pt is awaiting pending cultures and ID to determine ABX at discharge, anticipate discharge in 1-2 more days. ID is hopeful that pt will be able to discharge on PO augmentin vs. IV abx. Pt has hx of IVDU and therefore can't have a PICC line placed for home ABX, if pt requires IV abx then pt may remain in the hospital for the duration of his abx. Pt anticipated to discharge home on PO abx with his SO to transport via POV. SW will continue to follow for ABX needs at discharge. A: Pt who will require abx at discharge, PO vs. IV abx. P: ID is hopeful that pt will be able to discharge on PO augmentin vs. IV abx. Cultures are pending. Pt anticipated to discharge home on PO abx with his SO to transport via POV. SW will continue to follow for ABX needs at discharge. Aruna Whalen [employer]OUNT EXEC[employer]IVE [employer]
[2016-09-04] MEDS ORDERED: OXYC5TAB72 PO (16:10)
--- NOTE | 2016-09-04 16:54 | NUR ---
DISCHARGE Patient discharged at 1645, left with girl friend who will drive her home. Patient denies pain, shortness of breath and nausea. Medications, follow up appointments, new Rx's, carenotes reviewed with patient and he verbalizes understanding. IV catheter removed intact, wound dressing material provided, dressing is c/d/i with no signs of infection at this time.
--- NOTE | 2016-09-05 08:33 | NUR ---
Social Work: Discharge D: EMR reviewed. Pt is on day 5 of hospitalization. Pt was discharged last night after pending cultures returned. Pt was discharged on PO abx. Pt discharged home on PO abx with his SO to transport via POV. No other discharge needs identified. A: Pt who will require abx at discharge, PO P: Pt discharged on PO augmentin. Pt discharged home on PO abx with his SO to transport via POV. Aruna Whalen MSW
== END 2016-09-04 16:42 | disposition home or self-care (01) | DRG 380 ==
LOC: SED 15:19 → OSC 17:33
PROVIDERS: ADMIT Family Medicine; ATTEND Family Medicine
PROC: 0JBR0ZZ Excision of Left Foot Subcutaneous Tissue and Fascia, Open Approach (ICD-10-PCS; principal; 2016-08-31 16:30)
DX: E11.621 Type 2 diabetes mellitus with foot ulcer (principal); L03.116 Cellulitis of left lower limb; L97.529 Non-pressure chronic ulcer of other part of left foot with unspecified severity; E11.42 Type 2 diabetes mellitus with diabetic polyneuropathy; Z89.611 Acquired absence of right leg above knee; E11.65 Type 2 diabetes mellitus with hyperglycemia; E11.628 Type 2 diabetes mellitus with other skin complications; I10 Essential (primary) hypertension; E03.9 Hypothyroidism, unspecified; E78.5 Hyperlipidemia, unspecified; I73.9 Peripheral vascular disease, unspecified; Z79.4 Long term (current) use of insulin; F32.9 Major depressive disorder, single episode, unspecified; F17.210 Nicotine dependence, cigarettes, uncomplicated; F15.90 Other stimulant use, unspecified, uncomplicated; B95.4 Other streptococcus as the cause of diseases classified elsewhere

== ENCOUNTER 2016-11-28 16:51 | Inpatient (IN) | payer OTHER, MEDICAID ==
[~2016-11-28] VITALS: Ht 180.3 cm; Wt 129.8 kg
[~2016-11-28 16:51] MED LIST changes: +AMLO5TAB2 PO; +AMOX-366 PO; +AMOX500C2 PO; -ASPI-973 PO; -ATOR40TA69 PO; -CEPH500C PO; -FAMO20T PO; +HYG25 PO; +LEVO50TA6 PO; -LEVO50TA83 PO; -LISI-567 PO; +LISI40TA PO; +OXYC-530 PO; -SULF1TAB7 PO
[2016-11-28 17:00] VITALS: BP 159/84; PULSE 103; RESP 14; O2SAT 100
[2016-11-28] MEDS ORDERED: 0.9% Sodium Chloride 1,000 ML IV ONE (17:15)
[2016-11-28] MEDS ORDERED: cefTRIAXone Inj 2,000 MG in Dextrose 5% 50 ML IV STA (17:15)
[2016-11-28] MEDS ORDERED: Vancomycin Dose per Pharmacist XX ONE (17:15)
--- NOTE | 2016-11-28 17:15 | ED.REPORT ---
HPI-General Illness Date of Service Nov 28, 2016 ED Provider: Valentin Alvares MD Patient is a 56 year old male with a history of IV drug use, diabetes and hypertension who presents to the ED complaining of intermittent chest pain onset 3 hours ago. Associated symptoms include pain that radiates into his left arm. He denies shortness of breath. The patient reports that the first episode of chest pain was sharp and lasted approximately 10 seconds, then he has continued to have episodes that only last about 5 seconds. He reports that the pain began while he was walking but he hasn't noticed anything that makes the pain reoccur. The patient also complains of an abscess on his left wrist that has been there for 6 days. Patient reports that he last used meth and injected into that area 6 days ago. Nursing Notes Stated Complaint: CHEST PAIN Chief Complaint: Chest Pain Nursing Notes Reviewed: Yes Allergies: Coded Allergies: hydrocodone (Verified Allergy, Unknown, itching all over, 08/30/16) aspirin (Verified Adverse Reaction, Severe, gi upset, 08/30/16) Scheduled Aripiprazole (Abilify) 10 Mg Tablet 10 MG PO DAILY Chlorthalidone (Chlorthalidone) 25 Mg Tablet 25 MG PO DAILY Gabapentin (Gabapentin) 600 Mg Tablet 600 MG PO BID Insulin Glargine,Hum.rec.anlog (Basaglar Kwikpen U-100) 100 Unit/Ml (3 Ml) Insuln.pen 55 UNITS SUBQ BID Levothyroxine (Levothyroxine) 50 Mcg Tablet 50 MCG PO 0630 Lisinopril (Lisinopril) 40 Mg Tablet 40 MG PO DAILY Metformin (Glucophage) 1,000 Mg Tablet 1,000 MG PO BID Venlafaxine ER (Effexor XR) 150 Mg Cap.er.24h 150 MG PO DAILY Scheduled PRN Insulin Human Lispro (HumaLOG U100 Insulin Vial) 100 Unit/Ml Unit 30-40 UNIT SUBQ TIDWM PRN PRN sliding scale General Time Seen by MD: 17:00 Chief Complaint Chest pain Hx Obtained From: Patient Arrived By: Walk-in Sudden in Onset?: Yes Onset Occurred: 1 - 4 hours ago Symptom Duration: Intermittent Location: : Chest Quality: Painful Radiation: : Arm left Severity: Current: Moderate Severity: Maximum: Moderate Similar Sx Previous: No Past Medical History Past Medical History Chronic osteomyelitis Hep C Substance abuse Peripheral vascular disease Peripheral neuropathy Diverticulitis Reports: Diabetes mellitus, Hyperlipidemia, Hypertension Past Surgical History 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 Physical Exam Vital Signs Vital Signs Date Time Temp Pulse Resp B/P Pulse Ox O2 Delivery O2 Flow Rate FiO2 11/28/16 18:29 36.9 96 16 137/82 94 Room Air 11/28/16 17:00 37.2 103 14 159/84 100 Room Air Initial VS: Reviewed General/Constitutional: Awake, Alert, No acute distress answering questions appropriately Head / Eyes: Atraumatic, Normocephalic, PERRL, EOMI Respiratory / Chest: Atraumatic, Breath sounds NL, Breath sounds = bilat, No respiratory distress Cardiovascular: Heart rate NL, Regular rhythm, Heart sounds NL, No gallop, No murmurs Abdomen: Atraumatic, Soft, Non-tender, No distention Upper Extremities Upper Extremity / MS: Full range of motion 4cm x 4cm firm abscess about the left anterior wrist with proximal streaking lymphangitis up to the antecubital fossa pain is worse with extension and flexion of fingers LOWER EXTREMITIES: above the knee right leg amputation left leg atraumatic Skin: No rash, Warm, Dry Neurologic: Oriented X3, Speech NL Interpretation & Diagnostics Lab Results Interpretation Result Diagram: 11/28/16 1715 11/28/16 1715 Test 11/28/16 17:15 11/28/16 17:40 White Blood Count 8.8th/mm3 (3.8-10.1) Red Blood Count 5.01mil/mm3 (4.40-5.80) Hemoglobin 15.0g/dL (13.8-17.2) Hematocrit 43.9% (41.0-50.0) Mean Corpuscular Volume 87.6fL (81-100) Mean Corpuscular Hemoglobin 29.9pg (27.0-35.0) Mean Corpuscular Hemoglobin Concent 34.2% (32.0-37.0) Red Cell Distribution Width 13.0% (12.3-15.4) Platelet Count 232bil/L (150-400) Neutrophils (%) (Auto) 67.5% (40-74) Lymphocytes (%) (Auto) 22.8% (14-46) Monocytes (%) (Auto) 6.9% (4-12) Eosinophils (%) (Auto) 2.0% (0-5) Basophils (%) (Auto) 0.5% (0-3) Erythrocyte Sedimentation Rate 23mm/hr (0-30) Prothrombin Time 9.1sec (8.1-12.5) Prothromb Time International Ratio 0.85ratio D-Dimer < 0.50mg/L FEU (<0.50) Sodium Level 131mEq/L (134-144) Potassium Level 4.7mEq/L (3.5-5.2) Chloride Level 92mEq/L (97-108) Carbon Dioxide Level 23mmol/L (18-29) Blood Urea Nitrogen 33mg/dL (6-24) Creatinine 1.03mg/dL (0.76-1.27) Estimat Glomerular Filtration Rate 80mL/min (>59) Glucose Level 268mg/dL (60-99) Calcium Level 9.0mg/dL (8.5-10.1) Magnesium Level 1.5mg/dL (1.6-2.6) Total Bilirubin 0.2mg/dL (0.0-1.2) Aspartate Amino Transf (AST/SGOT) 22U/L (0-50) Alanine Aminotransferase (ALT/SGPT) 32U/L (0-44) Alkaline Phosphatase 91U/L (25-150) Troponin T < 0.010ug/L (0.0-0.011) C-Reactive Protein 1.2mg/dL (0.0-0.5) Total Protein 7.2g/dL (6.4-8.4) Albumin 3.3g/dL (3.4-5.0) Procalcitonin 0.05ng/mL (0.00-0.08) Thyroid Stimulating Hormone (TSH) 3.380uIU/mL (0.450-4.500) Lactic Acid Level 2.1mmol/L (0.4-2.0) ECG Interpretation ECG Interpretation: RBBB with left anterior vasicular block no ST segment elevation unchanged when compared to prior from 08/30/16 Time: 17:22 Interpreted by: ED physician Normal ECG Interpretation: Normal rate (97), Normal sinus rhythm X-Ray Chest Interpretation Chest Xray Interpretation: IMPRESSION: No acute cardiopulmonary disease process. Dictated by: Yolanda Guallpa MD, PhD on 11/28/2016 at 19:22 Approved by: Yolanda Guallpa MD, PhD on 11/28/2016 at 19:23 Interpretation / Wet Read by: Interpret - Radiologist Re-Eval/Medical Decision Med Decision/Clinical Course Patient is a 56 year old male with a history of IV drug use, diabetes and hypertension who presents to the ED complaining of intermittent chest pain onset 3 hours ago. Associated symptoms include pain that radiates into his left arm. He denies shortness of breath. The patient reports that the first episode of chest pain was sharp and lasted approximately 10 seconds, then he has continued to have episodes that only last about 5 seconds. He reports that the pain began while he was walking but he hasn't noticed anything that makes the pain reoccur. The patient also complains of an abscess on his left wrist that has been there for 6 days. Patient reports that he last used meth and injected into that area 6 days ago. Here in the emergency department the patient is afebrile with stable vital signs and examination as above. He is however noted to be somewhat tachycardic. He has significant abscess with erythema and induration about his left wrist with approximately streaking erythema extending up to the antecubital fossa. Order list: IVF, Ceftriaxone, Vancomycin, Zofran and Tylenol ASA cancelled (aspirin allergy) Labs: CBC unremarkable, CMP notable for Sodium of 132, BUN 33, Creatinine of 1.03, glucose of 268, lactic acid 2.1, Magnesium of 1.5, negative trop, negative D-Dimer EKG: sinus rhythm, 97bpm RBBB with left anterior vasicular block No ST segment elevation unchanged from prior EKG on 08/30/16 Ultrasound: IMPRESSION: Small fluid collection deep to the puncture site and left wrist region. Small abscess cannot be excluded. CXR: Obtained, reviewed and interpreted by myself shows no evidence of infiltrates, effusions or pneumothorax. Cardiac and mediastinal silhouette normal. No bony or soft tissue abnormalities. Patient presents with multiple concerns. In regards to his chest pain this is not classically suggestive of acute coronary syndrome and initial EKG and screening troponin are reassuring. We did not administer aspirin as he reports that he is allergic. Patient likely requires serial troponins and further rule out for cardiac etiologies of his pain. His pain is somewhat pleuritic in nature and I considered pulmonary embolism. He is relatively low risk for PE that he was noted to be tachycardic. D-dimer is negative and therefore I have opted not to proceed with CT angiogram. In regards to his left wrist abscess/ cellulitis I am concerned for possible chemotherapy of arthritis as he reports pain is increased by flexion and extension of the fingers. Ultrasound is not sensitive for tenosynovitis however I am told by diabetes nurse There is a small abscess with fluid extending down around the flexor tendons. This further concerns me for possible tenosynovitis. Patient was therefore discussed with hand surgery who requested we start him on IV antibiotics which we have already done. They also requested that we send ESR and CRP, make him nothing by mouth at midnight with plan for operative intervention in the morning. Patient was discussed with admitting hospitalist and accepted for further management and workup of his chest pain and consultation with hand surgery and management of his left wrist abscess and possible tenosynovitis. Patient was transferred in stable condition. Time of Eval: 18:34 Re-Evaluation/Progress Note: Discussed results and plan for admit. Patient understands and agrees to plan. All questions were addressed. Consultation #1: Referral / Consult Name: KATHY DUENAS DO Consulted With: Hospitalist Call Returned at: 18:51 Animal Pathology Teacher: Agrees with eval, Agrees with plan, Accepts admit Consultation #2: Consulted With: Ortho hand Call Returned at: 19:00 Note: Consult with Dr. Espinoza, who requests an ESR, CRP and that the patient be made NPO for surgery. Counseled Regarding: Diagnosis, Lab results, Need for admission Discharge & Departure Primary Impression: Chest pain Chest pain type: unspecified Qualified Code: R07.9 - Chest pain, unspecified Additional Impressions: Cellulitis Site of cellulitis: extremity Site of cellulitis of extremity: upper extremity Laterality: left Qualified Code: L03.114 - Cellulitis of left upper limb Abscess IV drug abuse Tachycardia Hyponatremia Disposition: ADMITTED TO HOSPITAL Discharge Condition All VS Reviewed: Yes Condition: Stable Referrals: Ronal Le MD (PCP) [place] Attestation Portions of this note were transcribed by Tri Rhodes. I, Dr. Alvares personally performed the history, physical exam and medical decision-making; I reviewed and confirmed the accuracy of the information in the transcribed note. Signed by: Anupam Faria, 11/28/16 copies to: Ronal Le MD, Beck O MD Nov 28, 2016 17:15 Lena Rhodes Nov 28, 2016 17:22
[2016-11-28] MEDS ORDERED: Ondansetron 2 mg/mL 2 mL Inj IVPUSH PRN ×2 (17:25→19:00)
[2016-11-28] MEDS ORDERED: Alum-Mag Hydrox-Simeth 30 mL Suspension PO PRN ×2 (17:25→19:00)
[2016-11-28 17:30] LABS: BASOPHILS % (AUTO) 0.5 % (0-3); MONOCYTES % (AUTO) 6.9 % (4-12); Mean Corpuscular Hemoglobin 29.9 pg (27.0-35.0); Mean Corpuscular Volume 87.6 fL (81-100); NEUTROPHILS % (AUTO) 67.5 % (40-74); Platelet Count 232 bil/L (150-400)
[2016-11-28] MEDS ORDERED: Vancomycin Inj 2,250 MG in 0.9% Sodium Chloride 500 ML IV ONE (17:30)
[2016-11-28 17:51] LABS: D-Dimer < 0.50 mg/L FEU (<0.50); INR 0.85 ratio
[2016-11-28 17:56] LABS: TROPONIN T < 0.010 ug/L (0.0-0.011)
[2016-11-28] MEDS ORDERED: INSU100I30 SUBQ (17:58)
[2016-11-28 18:06] LABS: Magnesium 1.5 mg/dL (1.6-2.6)
[2016-11-28 18:29] VITALS: BP 137/82; PULSE 96; RESP 16; O2SAT 94
--- NOTE | 2016-11-28 18:45 | DRSVH ---
PROCEDURE: US EXTREMITY SONOGRAM LIMITED ([id number]) INDICATIONS: L arm, abscess, tenosynovitis? TECHNIQUE: Real-time scanning was performed of the left upper extremity, with image documentation. COMPARISON: None. FINDINGS: Soft tissue edema noted deep to the puncture site region of the left wrist. There is a sm all fluid collection deep to the puncture site IMPRESSION: Small fluid collection deep to the puncture site and left wrist region. Small abscess c annot be excluded. Dictated by: Yolanda Guallpa MD, PhD on 11/28/2016 at 18:42 Approved by: Yolanda Guallpa MD, PhD on 11/28/2016 at 18:44
[2016-11-28] MEDS ORDERED: Polyethylene Glycol (PEG) 17 Gm Powder PO PRN (19:00)
--- NOTE | 2016-11-28 19:10 | PCM.HPMED ---
Subjective Date of Service Nov 28, 2016 Primary Provider: Admitting Physician: Rojas Herrera MD Primary Care Physician: Ronal Le MD Attending Physician: Rojas Herrera MD Admit Status: From the Emergency Department Chief Complaint: Chest Pain, Abscess History of Present Illness: Mr. Linn is a 56 male with past medical history of IV drug use (methamphetamine ), diabetes and hypertension who presented to the ED secondary to left wrist pain and intermittent chest pain 3 hours. He states that he last injected methamphetamine to his affected wrist 6 days prior and developed subsequent infectious-like symptoms. Not remember looking the needle before injecting. The area is painful to palpation as well as active and passive motion. He denies fevers/chills, nausea/vomiting headache or visual disturbances. He does state that he has had intermittent chest pain for the last day or so which will last for a few seconds at a time and spontaneously resolved. He states that during these episodes he is not exerting himself but it does feel better when he puts pressure on it with his fingers. In the ED patient given ceftriaxone and vancomycin. Blood cultures obtained. Ultrasound of the wrists showed small fluid collection deep to the puncture site possibly abscess. Chest x-ray showed no acute cardiopulmonary disease. EKG showed heart rate in the 90s, sinus rhythm. With right bundle-branch block and left anterior fascicular block which was unchanged when compared with prior. Lab values show negative troponin, mildly elevated lactic acid 2.1, C- reactive protein 1.2, sodium 131, close to 68 magnesium 1.5. d-dimer negative Review of Systems: A comprehensive review of systems was conducted with the patient and found to be negative except as above in the history of present illness. Allergies Coded Allergies: hydrocodone (Verified Allergy, Unknown, itching all over, 08/30/16) aspirin (Verified Adverse Reaction, Severe, gi upset, 08/30/16) Home Medications Scheduled Aripiprazole (Abilify) 10 Mg Tablet 10 MG PO DAILY Chlorthalidone (Chlorthalidone) 25 Mg Tablet 25 MG PO DAILY Gabapentin (Gabapentin) 600 Mg Tablet 600 MG PO BID Insulin Glargine,Hum.rec.anlog (Basaglar Kwikpen U-100) 100 Unit/Ml (3 Ml) Insuln.pen 55 UNITS SUBQ BID Levothyroxine (Levothyroxine) 50 Mcg Tablet 50 MCG PO 0630 Lisinopril (Lisinopril) 40 Mg Tablet 40 MG PO DAILY Metformin (Glucophage) 1,000 Mg Tablet 1,000 MG PO BID Venlafaxine ER (Effexor XR) 150 Mg Cap.er.24h 150 MG PO DAILY Scheduled PRN Insulin Human Lispro (HumaLOG U100 Insulin Vial) 100 Unit/Ml Unit 30-40 UNIT SUBQ TIDWM PRN PRN sliding scale PMH Chronic osteomyelitis Hep C Substance abuse Peripheral vascular disease Peripheral neuropathy Diverticulitis Reports: Diabetes mellitus, Hyperlipidemia, Hypertension Surgical History Right leg amputation at the knee L foot surgery Reports: Appendectomy, Tonsillectomy Family History Mother: Depression and diabetes mellitus type II Social History Hx Alcohol Use: Yes Alcoholic Drinks Per Day: 3 beers a day Hx Substance Use: Yes (meth use, used last night) Hx Tobacco Use: Yes (10 cigarettes/day; has been smoking x 30 years) Smoking Status: Current Every Day Smoker Exam Vital Signs Vital Sign - Last Date Time Temp Pulse Resp B/P Pulse Ox O2 Delivery O2 Flow Rate FiO2 11/28/16 18:29 36.9 96 16 137/82 94 Room Air Exam General: Obese male Awake alert lying in hospital bed in no acute distress, well -developed, well-nourished, appropriately interactive HEENT: Normocephalic, atraumatic. External ears without defect. Pupils equal, round, and reactive to light and accommodation. Oropharynx with Moist mucosa. Neck: Supple with full range of motion. No jugular venous distension. Cardiovascular: Regular rate and rhythm with no murmurs appreciated Pulmonary: Clear to auscultation bilaterally with no crackles, wheezes, or rhonchi. Normal respiratory effort with no use of accessory muscles. Abdomen: Obese abdomen Soft, nontender to palpation 4 quadrants. Extremities: No clubbing, cyanosis, edema. Right leg AKA. Left wrist 4 x 4 centimeter abscess on the left anterior wrist, with 1 cm x 1 cm excoriated center. Painful to palpation and both active and passive range of motion of fingers and wrist. Erythematous distribution around suspected abscess as well as tracking proximal left antecubital fossa. Neurological: Cranial nerves grossly intact. Psychiatric: Normal mood and affect. Alert and oriented to person, place, and time. Lab and Diagnostics Result Diagram: 9/13/17 1715 9/13/17 1715 X-Rays, CTs and MRIs US EXTREMITY SONOGRAM LIMITED IMPRESSION: Small fluid collection deep to the puncture site and left wrist region. Small abscess cannot be excluded. Dictated by: Yolanda Guallpa MD, PhD on 11/28/2016 X-RAY CHEST, TWO VIEWS IMPRESSION: No acute cardiopulmonary disease process. Dictated by: Yolanda Guallpa MD, PhD on 11/28/2016 Assessment & Plan Mr. Linn is a 56 male with past medical history of IV drug use (methamphetamine ), diabetes and hypertension admitted for left wrist abscess and chest pain rule out. Right wrist Abscess. POA. Ongoing Imaging as above Hand surgery Dr. Espinoza consulted by ED physician Vancomyacin, Ceftriaxone started in ED NPO, pending surgery continue to monitor Chest pain. POS. Under evaluation most likely musculoskeletal in nature ECG negative for acute change Troponin negative X 1, continue to trend Telemetry Consider nuclear stress test after abscess treatment. Continue to monitor Lactic Acidosis. POA. Ongoing Lactic Acid mildly elevated on admit 2.1 IVF 100 ml NS/hr Continue to trend Hyponatremia. POA. Ongoing IVF as above Continue to monitor Chronic Conditions: DM type II, presumed stable Continue home 55units SQ BID High dose correctional scale insulin Hold home Metformin A1c pending Substance abuse. Ongoing Monitor for signs of withdraw Hypertension. POA. presumed stable Continue home LSN, chlorthaladone Hypothyroidism. POA. Presumed stable Continue home levothyroxine Peripheral neuropathy. POA. Presumed stable Continue home Gabapentin Depression. POA. Presumed Stable Contine home Effexor Patient Status: Patient was admitted under inpatient status with expected length of stay greater than two midnights due to severity of presenting symptoms , risk of adverse event, and complexity of treatment plan. GI Prophylaxis: H2 polo VTE Prophylaxis: Sub-Q Heparin (Unfractionated) Resuscitation Status: CPR: Attempt Resuscitation Attending Statement The patient was seen and examined together with Dr. Ventura on 11/28 and I agree with the history, exam and plan as outlined in the note above. KATHY VENTURA DO Nov 28, 2016 19:10 Rojas Herrera MD Nov 29, 2016 05:25
[2016-11-28] MEDS ORDERED: Glucose 40% Oral Gel 15 Gm Tube PO PRN (19:20)
[2016-11-28] MEDS: 0.9% Sodium Chloride 1,000 ML IV SCH ×2 (19:25→21:18)
--- NOTE | 2016-11-28 19:25 | DRSVH ---
PROCEDURE: X-RAY CHEST, TWO VIEWS ([id number]) INDICATIONS: Chest pain. TECHNIQUE: 2 views of the chest were acquired. COMPARISON: [facility], CR, XR CHEST 1VW (PORTABLE), 06/03/2016, 14:12. FINDINGS: Surgical changes and devices: None. Lungs and pleura: No pleural effusions or pneumothorax. Probable pleural lipomatosis is not signific antly changed compared to prior exam. Lungs are clear. Mediastinum: Mediastinal contours are normal. Heart size is normal. Bones and chest wall: No suspicious bony abnormalities. Soft tissues appear unremarkable. IMPRESSION: No acute cardiopulmonary disease process. Dictated by: Yolanda Guallpa MD, PhD on 11/28/2016 at 19:22 Approved by: Yolanda Guallpa MD, PhD on 11/28/2016 at 19:23
[2016-11-28 19:57] VITALS: BP 144/82; PULSE 93; RESP 20; O2SAT 97
[2016-11-28] MEDS: Insulin GLARgine 100 Unit/mL Syringe SUBQ SCH (21:18)
[2016-11-28] MEDS: Insulin LISPRO 300 Unit/3 mL Inj SUBQ SCH (21:18)
--- NOTE | 2016-11-28 21:22 | PCM.CONPHA ---
Subjective Date of Service: Nov 28, 2016 Chest Pain, Abscess History of Present Illness Vancomycin management per pharmacy Indication: cellulitis, abscess Pertinent info: - Patient received loading dose of vancomycin 2250 mg x1 in the ED. - SCr: 1.03 - Hx of IVDU, diabetes, HTN. Patient is at risk for accumulation due to diabetes, HTN, weight. However, he may have increased clearance due to hx of IVDU. Maintenance dose: vancomcyin 1000 mg IV Q8H. Pharmacologic modeling estimates a trough of 13.3; however, complexity of patient makes it difficult to assess vancomycin clearance. Trough has been scheduled for 11/29/16 @ 1800 prior to the 4th dose. Pharmacy to continue to monitor and dose vancomcyin. Thank you, Shalini Magaña Pharmacist Objective Vital Signs Date Time Temp Pulse Resp B/P Pulse Ox O2 Delivery O2 Flow Rate FiO2 11/28/16 19:57 36.6 93 20 144/82 97 Room Air 11/28/16 18:29 36.9 96 16 137/82 94 Room Air 11/28/16 17:00 37.2 103 14 159/84 100 Room Air Weight (Kilograms): 129.800 Height (Feet): 5 Height (Inches): 11.00 Test 11/28/16 17:15 11/28/16 17:40 White Blood Count 8.8th/mm3 (3.8-10.1) Red Blood Count 5.01mil/mm3 (4.40-5.80) Hemoglobin 15.0g/dL (13.8-17.2) Hematocrit 43.9% (41.0-50.0) Mean Corpuscular Volume 87.6fL (81-100) Mean Corpuscular Hemoglobin 29.9pg (27.0-35.0) Mean Corpuscular Hemoglobin Concent 34.2% (32.0-37.0) Red Cell Distribution Width 13.0% (12.3-15.4) Platelet Count 232bil/L (150-400) Neutrophils (%) (Auto) 67.5% (40-74) Lymphocytes (%) (Auto) 22.8% (14-46) Monocytes (%) (Auto) 6.9% (4-12) Eosinophils (%) (Auto) 2.0% (0-5) Basophils (%) (Auto) 0.5% (0-3) Erythrocyte Sedimentation Rate 23mm/hr (0-30) Prothrombin Time 9.1sec (8.1-12.5) Prothromb Time International Ratio 0.85ratio D-Dimer < 0.50mg/L FEU (<0.50) Sodium Level 131mEq/L (134-144) Potassium Level 4.7mEq/L (3.5-5.2) Chloride Level 92mEq/L (97-108) Carbon Dioxide Level 23mmol/L (18-29) Blood Urea Nitrogen 33mg/dL (6-24) Creatinine 1.03mg/dL (0.76-1.27) Estimat Glomerular Filtration Rate 80mL/min (>59) Glucose Level 268mg/dL (60-99) Calcium Level 9.0mg/dL (8.5-10.1) Magnesium Level 1.5mg/dL (1.6-2.6) Total Bilirubin 0.2mg/dL (0.0-1.2) Aspartate Amino Transf (AST/SGOT) 22U/L (0-50) Alanine Aminotransferase (ALT/SGPT) 32U/L (0-44) Alkaline Phosphatase 91U/L (25-150) Troponin T < 0.010ug/L (0.0-0.011) C-Reactive Protein 1.2mg/dL (0.0-0.5) Total Protein 7.2g/dL (6.4-8.4) Albumin 3.3g/dL (3.4-5.0) Procalcitonin 0.05ng/mL (0.00-0.08) Thyroid Stimulating Hormone (TSH) 3.380uIU/mL (0.450-4.500) Lactic Acid Level 2.1mmol/L (0.4-2.0) Shalini Magaña Nov 28, 2016 21:22
--- NOTE | 2016-11-28 21:27 | PCM.CONPHA ---
Subjective Date of Service: Nov 28, 2016 Chest Pain, Abscess Reason for Pharmacy Consult: Vancomycin Dosing Objective Vital Signs Date Time Temp Pulse Resp B/P Pulse Ox O2 Delivery O2 Flow Rate FiO2 11/28/16 19:57 36.6 93 20 144/82 97 Room Air 11/28/16 18:29 36.9 96 16 137/82 94 Room Air 11/28/16 17:00 37.2 103 14 159/84 100 Room Air Weight (Kilograms): 129.800 Height (Feet): 5 Height (Inches): 11.00 Test 11/28/16 17:15 11/28/16 17:40 White Blood Count 8.8th/mm3 (3.8-10.1) Red Blood Count 5.01mil/mm3 (4.40-5.80) Hemoglobin 15.0g/dL (13.8-17.2) Hematocrit 43.9% (41.0-50.0) Mean Corpuscular Volume 87.6fL (81-100) Mean Corpuscular Hemoglobin 29.9pg (27.0-35.0) Mean Corpuscular Hemoglobin Concent 34.2% (32.0-37.0) Red Cell Distribution Width 13.0% (12.3-15.4) Platelet Count 232bil/L (150-400) Neutrophils (%) (Auto) 67.5% (40-74) Lymphocytes (%) (Auto) 22.8% (14-46) Monocytes (%) (Auto) 6.9% (4-12) Eosinophils (%) (Auto) 2.0% (0-5) Basophils (%) (Auto) 0.5% (0-3) Erythrocyte Sedimentation Rate 23mm/hr (0-30) Prothrombin Time 9.1sec (8.1-12.5) Prothromb Time International Ratio 0.85ratio D-Dimer < 0.50mg/L FEU (<0.50) Sodium Level 131mEq/L (134-144) Potassium Level 4.7mEq/L (3.5-5.2) Chloride Level 92mEq/L (97-108) Carbon Dioxide Level 23mmol/L (18-29) Blood Urea Nitrogen 33mg/dL (6-24) Creatinine 1.03mg/dL (0.76-1.27) Estimat Glomerular Filtration Rate 80mL/min (>59) Glucose Level 268mg/dL (60-99) Calcium Level 9.0mg/dL (8.5-10.1) Magnesium Level 1.5mg/dL (1.6-2.6) Total Bilirubin 0.2mg/dL (0.0-1.2) Aspartate Amino Transf (AST/SGOT) 22U/L (0-50) Alanine Aminotransferase (ALT/SGPT) 32U/L (0-44) Alkaline Phosphatase 91U/L (25-150) Troponin T < 0.010ug/L (0.0-0.011) C-Reactive Protein 1.2mg/dL (0.0-0.5) Total Protein 7.2g/dL (6.4-8.4) Albumin 3.3g/dL (3.4-5.0) Procalcitonin 0.05ng/mL (0.00-0.08) Thyroid Stimulating Hormone (TSH) 3.380uIU/mL (0.450-4.500) Lactic Acid Level 2.1mmol/L (0.4-2.0) Assessment/Plan Assessment/Plan Vancomycin management per pharmacy Indication: cellulitis, abscess Pertinent info: - Patient received loading dose of vancomycin 2250 mg IV one time in the ED. - Hx of IVDU, diabetes, HTN - SCr 1.03 Difficult to assess patient's vancomycin clearance. May have increased clearance due to IVDU but is at risk for accumulation due to hx of diabetes, HTN and weight. Maintenance dose: vancomycin 1000 mg IV Q8H. Trough has been scheduled for 11/29/16 at 1800 prior to the 4th dose. Pharmacy to continue to monitor and dose vancomycin. Thank you, Shalini Magaña Pharmacist Shalini Magaña Nov 28, 2016 21:27
--- NOTE | 2016-11-28 22:32 | NUR ---
Admit Pt admitted on the floor for Left wrist abscess and chest pain. Pt states he's still having mild chest pressure. Denies sob, n/v or abd discomfort. IVF running as ordered, VSS and has been afebrile. MRSA screen done, and culture abscess sent to lab. Insulin administered per sliding scale. Continuing to monitor.
[2016-11-29] VITALS (7 sets, daily range): BP systolic 132–160; BP diastolic 79–100; PULSE 91–101; RESP 18–20; O2SAT 95–98
[2016-11-29] MEDS: Clindamycin Inj 600 MG in IV Premix 1 EACH IV SCH ×3 (02:00→16:55)
[2016-11-29] MEDS: Heparin 5,000 Unit/mL Inj SUBQ SCH ×3 (02:01→16:55)
[2016-11-29] MEDS: Vancomycin Inj 1,000 MG in IV Premix 1 EACH IV SCH ×2 (02:55→11:06)
[2016-11-29] MEDS: 0.9% Sodium Chloride 1,000 ML IV SCH ×4 (05:25→16:56)
[2016-11-29] MEDS: Vancomycin Dose per Pharmacist XX SCH ×2 (07:23→08:30)
[2016-11-29 07:34] LABS: BASOPHILS % (AUTO) 0.4 % (0-3); EOSINOPHILS % (AUTO) 2.6 % (0-5); Mean Corpuscular Hemoglobin 29.9 pg (27.0-35.0); Mean Corpuscular Volume 88.9 fL (81-100); NEUTROPHILS % (AUTO) 76.8 % (40-74); Platelet Count 185 bil/L (150-400)
[2016-11-29 07:54] LABS: TROPONIN T 0.01 ug/L (0.0-0.011)
[2016-11-29 08:05] LABS: Magnesium 1.5 mg/dL (1.6-2.6)
[2016-11-29] MEDS: Insulin GLARgine 100 Unit/mL Syringe SUBQ SCH ×2 (08:30→22:03)
[2016-11-29] MEDS: Insulin LISPRO 300 Unit/3 mL Inj SUBQ SCH ×4 (09:02→22:03)
[2016-11-29] MEDS: Venlafaxine XR 75 mg ER24 Capsule PO SCH (09:19)
[2016-11-29] MEDS ORDERED: Magnesium Sulf 2 Gm/50mL Water 2 GM in IV Premix 1 EACH IV ONE (09:25)
[2016-11-29] MEDS ORDERED: Dextrose 10% 250 ML IV PRN (10:20)
--- NOTE | 2016-11-29 13:56 | NUR ---
Social Work-initial assessment/ multidisciplinary rounds: Data:See initial assessment. Pt is a 56 y/o male who was admitted on 11/28/16 for chest pain per H&P. Pt's insurance is [employer] and PCP is Ronal Le MD. EMR Reviewed. SW met with pt at bedside, SW role explained. Pt resides with a friend in a single level home where he remains independent with ADLs. Pt does not drive and does not use any DME. Pt has no HH or SNF history. Pt has no [employer]ator [employer] insurance or VA benefits. SW discussed DPOA/ advanced directive, pt has accepted the information. No concerns noted in morning rounds regarding pt from RN or MD. SW provided pt with discharge planning checklist and encouraged him to call with any questions,phone number provided on white board in room. Pt has history of IV drug use, no MD order received at this time. Pt's friend to provide transport home. SW will continue to follow. Assessment:Pt who is independent at baseline. Plan:Pt to discharge home when medically stable via POV. Pt has history of IV drug use, no MD order received at this time.MELINDA will continue to follow. YOHANA Abreu Addendum: 11/29/16 at 1430 by MILTON GIMENEZ Amended: Links added.
[2016-11-29] MEDS ORDERED: Bacitracin Ointment Packet TOPICAL ONE (14:20)
--- NOTE | 2016-11-29 14:30 | PCM.PNMED ---
Subjective Date of Service Nov 29, 2016 Subjective Pt denies fever/chills overnight. Exam Vital Signs Vital Sign - Last Date Time Temp Pulse Resp B/P Pulse Ox O2 Delivery O2 Flow Rate FiO2 11/29/16 10:31 37.2 98 18 132/79 96 Room Air Intake and Output 11/28/16 11/28/16 11/29/16 Cumulative From/Thru 15:00 23:00 07:00 11/28/16 17:00 - 11/29/16 06:02 Intake Total 550 ml 1458 ml 2008 ml Output Total 600 ml 600 ml Balance 550 ml 858 ml 1408 ml Intake Oral 0 ml 0 ml IV Total 550 ml 1458 ml 2008 ml Output Urine Total 600 ml 600 ml Exam General: Obese male Awake alert lying in hospital bed in no acute distress, well -developed, well-nourished, appropriately interactive HEENT: Normocephalic, atraumatic. External ears without defect. Pupils equal, round, and reactive to light and accommodation. Oropharynx with Moist mucosa. Neck: Supple with full range of motion. No jugular venous distension. Cardiovascular: Regular rate and rhythm with no murmurs appreciated Pulmonary: Clear to auscultation bilaterally with no crackles, wheezes, or rhonchi. Normal respiratory effort with no use of accessory muscles. Abdomen: Obese abdomen Soft, nontender to palpation 4 quadrants. Extremities: No clubbing, cyanosis, edema. Right leg AKA. Left wrist 4 x 4 centimeter abscess on the left anterior wrist, with 1 cm x 1 cm excoriated center. Painful to palpation and both active and passive range of motion of fingers and wrist. Erythematous distribution around suspected abscess as well as tracking proximal left antecubital fossa. Neurological: Cranial nerves grossly intact. Psychiatric: Normal mood and affect. Alert and oriented to person, place, and time. IVs and Medications Medications Reviewed: Medications were reviewed in detail Lab and Diagnostics Result Diagram: 11/29/1671911/29/16719 X-Rays, CTs and MRIs US EXTREMITY SONOGRAM LIMITED IMPRESSION: Small fluid collection deep to the puncture site and left wrist region. Small abscess cannot be excluded. Dictated by: Yolanda Guallpa MD, PhD on 11/28/2016 X-RAY CHEST, TWO VIEWS IMPRESSION: No acute cardiopulmonary disease process. Dictated by: Yolanda Guallpa MD, PhD on 11/28/2016 Assessment & Plan Mr. Linn is a 56 male with past medical history of IV drug use (methamphetamine ), diabetes and hypertension admitted for left wrist abscess and chest pain rule out. Right wrist Abscess. POA. Ongoing Imaging as above. Likely due to poorly controlled Diabetes. Vancomyacin, Ceftriaxone, Clindamycin started on 11/28. Follow up abscess cultures. MRSA negative. Consider stopping Vancomycin. Hand Surgery, Dr. Espinoza following- Will schedule for Surgery in AM for I&D. For now Nurse instructions for warm compresses q8h, bacitracin topical. NPO past Mn. continue to monitor DM type II, poorly controlled, chronic, active. A1c 10.7. Continue home 55units SQ BID High dose correctional scale insulin Hold home Metformin Chest pain. POS. Resolved. most likely musculoskeletal in nature, ACS unlikely. ECG negative for acute change Troponin negative X 3 Continue to monitor Lactic Acidosis. POA. resolved. Lactic Acid mildly elevated on admit 2.1 IVF was given. Continue to trend Chronic Conditions: Substance abuse. Ongoing Monitor for signs of withdraw Hypertension. POA. presumed stable Continue home LSN, chlorthaladone Hypothyroidism. POA. Presumed stable Continue home levothyroxine Peripheral neuropathy. POA. Presumed stable Continue home Gabapentin Depression. POA. Presumed Stable [place] home Effexor Patient Status: Patient was admitted under inpatient status with expected length of stay greater than two midnights due to severity of presenting symptoms , risk of adverse event, and complexity of treatment plan. GI Prophylaxis: H2 polo VTE Prophylaxis: Sub-Q Heparin (Unfractionated) Resuscitation Status: CPR: Attempt Resuscitation Prasad Ga MD Nov 29, 2016 14:30
--- NOTE | 2016-11-29 17:32 | NUR ---
Social Work-attempted CD assessment: Data:EMR reviewed. Pt is on day 1 of hospitalization for chest pain per H&P. Anticipate pt to be here several more days. MD order received for CD assessment. SW attempted to follow back up with CD assessment, but RN in room. SW to follow up with CD assessment tomorrow. SW will continue to follow. Assessment:pt who is independent at baseline. Plan:Anticipate pt to discharge home when medically stable. SW to follow up with CD assessment when appropriate. SW will continue to follow. YOHANA Abreu
[2016-11-29] MEDS ORDERED: Vancomycin Serum Trough XX ONE (18:00)
[2016-11-29] MEDS: cefTRIAXone Inj 2,000 MG in Dextrose 5% Minibag Plus 50 ML IV SCH (18:21)
--- NOTE | 2016-11-29 18:38 | NUR ---
Activity/px/L wrist Pt has remained in bed all shift, sitting up EOB x1. Refused offer to get in chair at bedside. Pt c/o L wrist pain, rating 4/10. PRN analgesic effective. L wrist remains open to air, applying warm compress Q8 hours as well as Bacitracin per MD order. Pt tolerating well. Bed in lowest, locked position and call light in reach.
[2016-11-29] MEDS ORDERED: Vancomycin Inj 1,250 MG in 0.9% Sodium Chloride 250 ML IV SCH ×2 (19:30→23:00)
--- NOTE | 2016-11-29 20:09 | PCM.PHAPRO ---
Progress Vancomycin management per pharmacy Indication: cellulitis, abscess Pertinent info: - Patient received loading dose of vancomycin 2250 mg IV one time in the ED. - Maintenance dose: vancomycin 1000 mg IV Q8H produced a trough of 17. Since patient is not septic and will most likely be taken off vanco will lower dose to 1250 mg Q12H to attempt to achieve a trough within range of 10-15 Trough has been scheduled for 12/01/16 at 1030 prior to the 4th dose. Pharmacy to continue to monitor and dose vancomycin. Thanks! Rosi Hoffman PharmD Nov 29, 2016 20:09
[2016-11-30] MEDS: Heparin 5,000 Unit/mL Inj SUBQ SCH ×3 (00:27→16:41)
[2016-11-30] MEDS: 0.9% Sodium Chloride 1,000 ML IV SCH ×4 (00:27→20:59)
[2016-11-30] MEDS: Clindamycin Inj 600 MG in IV Premix 1 EACH IV SCH ×3 (01:03→16:41)
[2016-11-30 05:36] VITALS: BP 145/82; PULSE 91; RESP 18; O2SAT 97
[2016-11-30 05:40] LABS: BASOPHILS % (AUTO) 0.6 % (0-3); EOSINOPHILS % (AUTO) 3.1 % (0-5); MONOCYTES % (AUTO) 9.8 % (4-12); Mean Corpuscular Hemoglobin 30.1 pg (27.0-35.0); Mean Corpuscular Volume 89.5 fL (81-100); NEUTROPHILS % (AUTO) 62.8 % (40-74); Platelet Count 197 bil/L (150-400)
--- NOTE | 2016-11-30 07:20 | NUR ---
pain control patient requested oxycodone x1 for pain to wrist. rated pain as a 7. pain medication effective. left wrist is swollen. given warm compresses at 2300. applied bacitracin. elevated. patient npo after midnight. fall precautions in place.
[2016-11-30] MEDS: Venlafaxine XR 75 mg ER24 Capsule PO SCH (07:57)
[2016-11-30] MEDS: Insulin LISPRO 300 Unit/3 mL Inj SUBQ SCH ×4 (07:58→20:59)
[2016-11-30] MEDS: Insulin GLARgine 100 Unit/mL Syringe SUBQ SCH ×2 (07:59→20:58)
[2016-11-30] MEDS: Vancomycin Dose per Pharmacist XX SCH (07:59)
[2016-11-30] MEDS ORDERED: Lactated Ringer's 500 ML IV PRN (08:09)
[2016-11-30] MEDS ORDERED: Lactated Ringer's 1,000 ML IV SCH (08:09)
--- NOTE | 2016-11-30 08:09 | PCM.HPANE ---
Patient Data Surgeon Admitting Provider:Rojas Herrera MD Attending Provider:Prasad Ga MD Primary Care Physician:Ronal Le MD Other Provider: Reason for Visit Chest Pain, L Wrist Abscess Ht/WT & BMI Height (Feet): 5 Height (Inches): 11.00 Weight (Kilograms): 129.800 Body Mass Index 40.06 Allergies Coded Allergies: hydrocodone (Verified Allergy, Unknown, itching all over, 08/30/16) aspirin (Verified Adverse Reaction, Severe, gi upset, 08/30/16) Past Anesthesia History Anesthesia History: Denies:: Abnormal Airway, Anesthesia Reactions Diabetes History Hx Diabetes?: Yes Type of Diabetes: Type I Glycemic Control: Insulin Dependent Current Bedside Blood Glucose: 192 MRSA MRSA: Yes (Right lower extremity. ) Medications Hypertension Medication: Yes Home Meds Incl Beta Rehana: No Active Scripts Levothyroxine 50 Mcg Jjoxvr93 Mcg PO 0630 #30 TABLET Prov:Dean Herr MD 09/04/16 Reported Medications Insulin Glargine,Hum.rec.anlog (Basaglar Kwikpen U-100)100 Unit/Ml (3 Ml) Insuln.pen55 Units SUBQ BID 11/28/16 Chlorthalidone 25 Mg Pndbfi23 Mg PO DAILY #30 08/30/16 Lisinopril 40 Mg Ezqldf95 Mg PO DAILY #30 08/30/16 Metformin (Glucophage)1,000 Mg Tablet1,000 Mg PO BID #60 05/31/15 Gabapentin 600 Mg Sphdee917 Mg PO BID 07/23/14 Venlafaxine ER (Effexor XR)150 Mg Cap.er.25r018 Mg PO DAILY #30 CAPSULE Ref 0 09/28/13 Insulin Human Lispro (HumaLOG U100 Insulin Vial)100 Unit/Ml Wgoz15-81 Unit SUBQ TIDWM PRN sliding scale 09/28/13 Aripiprazole (Abilify)10 Mg Mpmfxj21 Mg PO DAILY 30 Days Ref 0 09/28/13 Discontinued Reported Medications Insulin Glargine (Lantus U100 Insulin Vial)100 Unit/Ml Vial55 Unit SUBQ BID Ref 0 07/23/14 Discontinued Scripts oxyCODONE 5 Mg Tablet5 Mg PO Q8H PRN For Moderate Pain #15 TABLET Prov:Dean Herr MD 09/04/16 Amoxicillin 500 Mg Capsule1,000 Mg PO BID 10 Days Ref 0 Prov:Dean Herr MD 09/04/16 Amoxicillin/Clav K 875-125 mg (Augmentin 875-125 mg)1 Each Tablet1 Tablet PO BID #20 TABLET Ref 0 Prov:Dean Herr MD 09/04/16 Amlodipine 5 Mg Tablet5 Mg PO DAILY #30 TABLET Prov:Dean Herr MD 09/04/16 History History of ENT Problems?: Yes HEENT History: Positive for:: Cataracts Denies:: Abnormal Airway Difficult Intubation Dysphagia Glaucoma Sinus Problem Denture Type: None Teeth Condition: Within Normal Limits Hx of Heart Problems?: Yes Cardiovascular History: Positive for:: Chest Pain Hypertension Denies:: Cardiac Surgery Congestive Heart Failure Edema Heart Murmur Irregular Heartbeat Pacemaker Thrombophlebitis Hx of Respiratory Problem?: No Respiratory History: Denies:: Asthma COPD Chest Surgery Dyspnea Emphysema Hemoptysis Pneumonia Tuberculosis Hx Neurologic Problems?: Yes Neurological History: Positive for:: Headaches Denies:: Alzheimer's Disease CVA Dementia Dizziness Parkinson's Disease Seizures Hx of GI Problems?: Yes Other GI Pertinent History: recurrent umbilical hernia Hx of Problems?: Yes Genitourinary History: Denies:: HX of Hemodialysis Kidney Stones Urinary Tract Infection HX of Peritoneal Dialysis: No Male Hx: Denies:: Prostate Problems Scrotal Mass Testicular Surgery Skin History: Denies:: History Skin Disorders? Pressure Ulcers Hx Musculoskeletal Problems?: Yes Musculoskeletal History: Positive for:: Back Injury (L4, L5 fracture) Musculoskeletal Trauma (Hx compartment syndrome. right above the knee amputation) Denies:: Joint Replacement Hx of Psycho/Social Problems?: Yes Psycho Social History: Positive for:: Anxiety Bipolar Disorder Hx Depression Suicide Attempt (10 years ago) Hx Surgeries?: Yes (right AKA, Appy, tonsilectomy) Hx Any Other Health Problems?: Yes Other History: Positive for:: Endocrine Disease Hospitalization Thyroid Disease (Hypothyroid) Denies:: Cancer History Blood Transfusions: Positive for:: Accept Blood Products? Denies:: Blood Transfuse Reaction Blood Transfusions Hx Diabetes: YesBedside Blood Glucose: 253 Hx Alcohol Use: YesAlcoholic Drinks Per Day: 3 beers a dayHx Substance Use: Yes (meth use, used last night) Smoking Status: Current Every Day Smoker Have You Smoked inLast 12 mo: YesApprox How Many Cigarettes/day: 2 pack/day Stop/Bang Treated for Sleep Apnea?: No Do You Have a CPAP Machine?: No S-Snoring: Do You Snore Loudly: Yes T-Tired: feel tired, fatigued: No O-Obsered: Observed not breath: No P-Blood Pressure: treated: Yes B- Body Mass Index > 35 kg/m2: No A- Age over 50: Yes N- Neck Large Circumference: Yes G- Gender Male: Yes LINDSAY Total Score: 4 LINDSAY Risk Assessment: High Risk, =/>3 Yes LINDSAY Category 4 OutPt Procedure: Yes Risk Assessment Category Category 1A: Patient has history of documented sleep apnea, and HAS NOT received any narcotic, sedative or anesthesia administration during this stay. Category 1B: Patient has history of documented sleep apnea, and HAS received any narcotic , sedative or anesthesia administration during this stay Category 2: Patient has SUSPECTED Obstructive Sleep Apnea, and HAS received any narcotic , sedative or anesthesia administration during this stay. Category 3: Patient has SUSPECTED Obstructive Sleep Apnea and HAS NOT received narcotic, sedative or anesthesia administration during this stay. Category 4: Outpatient in Procedural Areas with known sleep apnea or who screen positive for High Risk via the STOP/BANG questionnaire. Exam Exam Vital Signs Vital Signs Date Time Temp Pulse Resp B/P Pulse Ox O2 Delivery O2 Flow Rate FiO2 11/30/16 05:36 36.4 91 18 145/82 97 Room Air General Appearance: Alert, Oriented X3, Cooperative, No Acute Distress HEENT/AIRWAY: MP 2 Lungs: Clear to Auscultation, Normal Air Movement Heart: Exam Unremarkable, Regular Rate/Rhythm, No Murmurs/Rubs/Gallops Meds/Labs/Diagnostics Admission Meds Current Medications Chlorthalidone (Hygroton) 25 mg DAILY PO Last administered on 11/30/16 07:56; Start 11/29/16 at 08:30 Lisinopril (Zestril) 40 mg DAILY PO Last administered on 11/30/16 07:57; Start 11/29/16 at 08:30 Venlafaxine HCl 150 mg 150 mg DAILY PO Last administered on 11/30/16 07:57; Start 11/29/16 at 08:30 Ceftriaxone Sodium 2000 mg/ Dextrose/Water 50 ml @ 100 mls/hr Q24H IV Last administered on 11/29/16 18:21; Start 11/29/16 at 18:00 Magnesium Sulfate/ Premix (Magnesium Sulf 2 Gm/50mL Water/ IV Premix) 50 ml @ 50 mls/hr ONCE ONCE IV Last administered on 11/29/16 10:10; Start 11/29/16 at 09:25; Stop 11/29/16 at 10:24; Status DC Bacitracin 1 applic 1 applic ONCE ONCE TOPICAL Last administered on 11/29/16 15:37; Start 11/29/16 at 14:20; Stop 11/29/16 at 14:21; Status DC Vancomycin HCl/ Sodium Chloride (Vancocin Inj/ Normal Saline) 250 ml @ 166.667 mls/hr Q12H IV Last administered on 11/29/16 23:04; Start 11/29/16 at 23:00 Bedside Blood Glucose: 253 Labs Test 11/28/16 17:15 11/29/16 05:00 11/29/16 07:20 11/29/16 18:08 Erythrocyte Sedimentation Rate 23mm/hr (0-30) Prothrombin Time 9.1sec (8.1-12.5) Prothromb Time International Ratio 0.85ratio D-Dimer < 0.50mg/L FEU (<0.50) Hemoglobin A1c 10.7% (4.8-5.6) C-Reactive Protein 1.2mg/dL (0.0-0.5) Procalcitonin 0.05ng/mL (0.00-0.08) Thyroid Stimulating Hormone (TSH) 3.380uIU/mL (0.450-4.500) Lactic Acid Level 1.2mmol/L (0.4-2.0) Magnesium Level 1.5mg/dL (1.6-2.6) Total Bilirubin 0.2mg/dL (0.0-1.2) Aspartate Amino Transf (AST/SGOT) 23U/L (0-50) Alanine Aminotransferase (ALT/SGPT) 30U/L (0-44) Alkaline Phosphatase 66U/L (25-150) Troponin T 0.010ug/L (0.0-0.011) Total Protein 6.3g/dL (6.4-8.4) Albumin 3.1g/dL (3.4-5.0) Vancomycin Level Trough 17.0mcg/mL Test 11/30/16 05:12 White Blood Count 6.2th/mm3 (3.8-10.1) Red Blood Count 4.75mil/mm3 (4.40-5.80) Hemoglobin 14.3g/dL (13.8-17.2) Hematocrit 42.5% (41.0-50.0) Mean Corpuscular Volume 89.5fL (81-100) Mean Corpuscular Hemoglobin 30.1pg (27.0-35.0) Mean Corpuscular Hemoglobin Concent 33.6% (32.0-37.0) Red Cell Distribution Width 13.1% (12.3-15.4) Platelet Count 197bil/L (150-400) Neutrophils (%) (Auto) 62.8% (40-74) Lymphocytes (%) (Auto) 23.5% (14-46) Monocytes (%) (Auto) 9.8% (4-12) Eosinophils (%) (Auto) 3.1% (0-5) Basophils (%) (Auto) 0.6% (0-3) Sodium Level 137mEq/L (134-144) Potassium Level 4.5mEq/L (3.5-5.2) Chloride Level 101mEq/L (97-108) Carbon Dioxide Level 24mmol/L (18-29) Blood Urea Nitrogen 19mg/dL (6-24) Creatinine 0.85mg/dL (0.76-1.27) Estimat Glomerular Filtration Rate 100mL/min (>59) Glucose Level 192mg/dL (60-99) Calcium Level 8.3mg/dL (8.5-10.1) Plan Impression Patient chart reviewed, patient interviewed and anesthestic plan with risks, benefits, and alternatives discussed, and informed consent obtained. NPO per Anesth. Guidelines: Yes ASA Physical Status: ASA3 Severe Disease (BMI 40, DM, HTN) Anesthetic Plan: GA Bene/Risks/Altern/Consents: Yes HP Complete Prior to Induction: Yes Gabe Gomez MD Nov 30, 2016 08:09
[2016-11-30] MEDS ORDERED: Phenylephrine 10,000 mCg/mL Inj IVPUSH PRN (08:10)
[2016-11-30] MEDS ORDERED: Dexamethasone 4 mg/mL Inj IVPUSH PRN (08:10)
[2016-11-30] MEDS ORDERED: EPHEDrine Sulfate 50 mg/mL Inj IVPUSH PRN (08:10)
[2016-11-30] MEDS ORDERED: fentaNYL-PF 50 mCg/mL 2 mL Inj IVPUSH PRN (08:10)
--- NOTE | 2016-11-30 12:06 | NUR ---
To OR Patient report given. Patient informed of procedure and time. Patient was able to transfer to [facility] independently. IV Vancomycin will be administered late due to OR procedure. Addendum: 11/30/16 at 1405 by PAULINE ZALDIVAR RN Vancomycin was rescheduled for when patient arrived back [place] [facility]
[2016-11-30] MEDS ORDERED: Lidocaine 1%-Epi 1:100,000 20 mL Inj INFILTRATE ONE (12:35)
[2016-11-30] MEDS ORDERED: Bupivacaine-MPF 0.25% 30 mL Inj INFILTRATE ONE (12:36)
[2016-11-30] MEDS ORDERED: Ketamine 10 mg/mL 20 mL Inj ONE (12:42)
[2016-11-30] MEDS ORDERED: Propofol 10,000 mCg/mL 20 mL Inj ONE (12:42)
[2016-11-30 12:50] VITALS: BP 140/77; PULSE 98; RESP 12; O2SAT 94
[2016-11-30 12:55] VITALS: BP 140/90; PULSE 95; RESP 13; O2SAT 97
[2016-11-30 13:00] VITALS: BP 127/73; PULSE 92; RESP 14; O2SAT 96
[2016-11-30] MEDS: Vancomycin Inj 1,250 MG in 0.9% Sodium Chloride 250 ML IV SCH (13:39)
[2016-11-30 13:45] VITALS: BP 121/78; PULSE 94; RESP 18; O2SAT 97
--- NOTE | 2016-11-30 14:12 | PCM.ANEP1 ---
Post Anesthesia PACU Phase 1 Assessment Vital Signs Vital Signs Date Time Temp Pulse Resp B/P Pulse Ox O2 Delivery O2 Flow Rate FiO2 11/30/16 13:45 36.6 94 18 121/78 97 Room Air 11/30/16 13:00 92 14 127/73 96 Room Air 11/30/16 12:55 95 13 140/90 97 Nasal Cannula 2 11/30/16 12:50 36.6 98 12 140/77 94 LMA 10 Anesthetic Administered: GA Level of Alertness: Awake, talking KIRK's with Equal Strength: Yes Pain: Yes (Level 6 - wrist) Pain Scale Score: 8 Nausea or Vomiting: No CV Function & Hydration Stable: Yes Airway Device: Oralpharangeal Airway Oxygen Delivery: Simple Mask Lungs: Clear to Auscultation, Normal Air Movement Dermatome Level: Full Sensation PACU Phase 2 Assessment Complications: No Follow up Care: No Patient Instructions Provided: N/A Gabe Gomez MD Nov 30, 2016 14:12
--- NOTE | 2016-11-30 17:04 | DRSVH ---
[facility] [address] [place] [place] [address] Echocardiogram Report Name: BELLO LAMB te: 11/30/2016 Height: 71 in Hospital Exam Location: [facility] Weight: 286 lb Gender: Male BSA: 2.5 m2 : 1960 Age: 56 yrs BP: 121/78 mmHg Reason For Study: Chest Pain Ordering Physician: HOSPITALIST [facility] Performed By: Geraldine Magdaleno Referring Physician: HOSPITALIST [facility] Interpretation Summary 1) Normal left ventricular size, wall motion, and systolic function (EF 60- 65%). 2) Normal right ventricular size and function. 3) No significant valvular abnormalities. 4) Compared to the Echo done 06/01/2015, no significant change. Procedure: A two-dimensional transthoracic echocardiogram with color flow and Doppler was performed. The study quality was technically adequate. A contrast injection of Definity was performed to improve assessment of LV function. Comparison is made with the echocardiogram of 06/01/2015. The patient was in normal sinus rhythm during the exam. Left Ventricle: The left ventricle is grossly normal size. The ejection fraction is estimated to be 60-65%. Left ventricular systolic function is normal without focal wall motion abnormalities. Diastolic function could not be accurately assessed due to tachycardia. Right Ventricle: The right ventricle is grossly normal size. The right ventricular systolic function is normal. Atria: The left atrial size is normal. The right atrium is normal in size. Mitral Valve: The mitral valve leaflets appear mildly thickened, but open well. There is mild mitral annular calcification. There is trace mitral regurgitation. Aortic Valve: The aortic valve is trileaflet. The aortic valve opens well. There is no aortic valve stenosis. No aortic regurgitation is present. Tricuspid Valve: The tricuspid valve is normal in structure and function. There is trace tricuspid regurgitation. Pulmonary artery pressures cannot be estimated because of the lack of a measurable TR jet velocity. Pulmonic Valve: The pulmonic valve is normal in structure and function. There is a trace or physiologic amount of pulmonic regurgitation. Great Vessels: The aortic root is normal size. The aortic arch is at the upper limits of normal in size. The IVC is of normal diameter and collapses greater than 50% with a sniff. This suggests a low right atrial pressure of 3 mm Hg. Pericardium/ Pleura There is no pericardial effusion. There is an anterior echo-free space consistent with a fat pad. There is no pleural effusion. MMode/2D Measurements & Calculations RA long axis: 4.1 cm LA A2 area: 12.9 cm LA A4 area: 16.3 cm RA area: 9.0 cm LA length (vol): 4.5 cm RA vol: 16.8 ml LA vol: 39.3 ml RA : 6.8 ml/m2 LA vol index: 16.0 ml/m2 LVOT diam: 2.5 cm TAPSE: 2.2 cm asc Aorta Diam: 3.8 cm Doppler Measurements & Calculations Ao V2 max: 105.2 cm/sec PA V2 max: 50.1 cm/sec Ao max P.4 mmHg PA mean P.54 mmHg Ao mean P.0 mmHg LVOT Max Kolby: 91.2 cm/sec ZAC(I,D): 4.0 cm sev ratio: 0.82 Ao V2 mean: 84.5 cm/sec LV V1 max P.4 mmHg Ao V2 VTI: 20.7 cm LV V1 VTI: 16.9 cm ZAC(V,D): 4.2 cm2 PA V2 mean: 34.8 cm/sec ZAC indexed to BSA (cm^2/m^2): 1.6 PA pr(Accel): 28.1 mmHg Reading Physician:05:03 PM
[2016-11-30] MEDS: cefTRIAXone Inj 2,000 MG in Dextrose 5% Minibag Plus 50 ML IV SCH (17:40)
[2016-11-30 19:58] VITALS: BP 145/81; PULSE 96; RESP 18; O2SAT 96
[2016-12-01] MEDS: Clindamycin Inj 600 MG in IV Premix 1 EACH IV SCH ×2 (00:48→08:11)
[2016-12-01] MEDS: Heparin 5,000 Unit/mL Inj SUBQ SCH ×3 (00:48→16:57)
[2016-12-01] MEDS: Vancomycin Inj 1,250 MG in 0.9% Sodium Chloride 250 ML IV SCH (03:28)
[2016-12-01 04:31] VITALS: BP 154/74; PULSE 79; RESP 18; O2SAT 96
[2016-12-01 05:55] LABS: BASOPHILS % (AUTO) 0.5 % (0-3); EOSINOPHILS % (AUTO) 4.4 % (0-5); MONOCYTES % (AUTO) 8.7 % (4-12); Mean Corpuscular Hemoglobin 29.9 pg (27.0-35.0); Mean Corpuscular Volume 89.4 fL (81-100); NEUTROPHILS % (AUTO) 58.6 % (40-74); Platelet Count 215 bil/L (150-400)
[2016-12-01] MEDS: 0.9% Sodium Chloride 1,000 ML IV SCH (06:37)
[2016-12-01] MEDS: Insulin LISPRO 300 Unit/3 mL Inj SUBQ SCH ×4 (08:00→21:20)
[2016-12-01] MEDS: Venlafaxine XR 75 mg ER24 Capsule PO SCH (08:10)
[2016-12-01] MEDS: Insulin GLARgine 100 Unit/mL Syringe SUBQ SCH ×2 (08:11→21:20)
[2016-12-01] MEDS ORDERED: Vancomycin Serum Trough XX ONE (13:00)
--- NOTE | 2016-12-01 13:29 | PCM.PNMED ---
Subjective Date of Service Nov 30, 2016 Subjective Going to OR today for I&D Exam Vital Signs Vital Sign - Last Date Time Temp Pulse Resp B/P Pulse Ox O2 Delivery O2 Flow Rate FiO2 12/01/16 04:31 36.4 79 18 154/74 96 Room Air 11/30/16 12:55 2 Intake and Output 11/30/16 11/30/16 12/01/16 Cumulative From/Thru 15:00 23:00 07:00 11/28/16 17:00 - 12/01/16 06:45 Intake Total 300 ml 2933 ml 1486 ml 9798 ml Output Total 1725 ml 1200 ml 5975 ml Balance 300 ml 1208 ml 286 ml 3823 ml Intake Oral 1825 ml 600 ml 3750 ml IV Total 300 ml 1108 ml 886 ml 6048 ml Output Urine Total 1725 ml 1200 ml 5975 ml # Bowel Movements 0 1 1 Exam General: Obese male Awake alert lying in hospital bed in no acute distress, well -developed, well-nourished, appropriately interactive HEENT: Normocephalic, atraumatic. External ears without defect. Pupils equal, round, and reactive to light and accommodation. Oropharynx with Moist mucosa. Neck: Supple with full range of motion. No jugular venous distension. Cardiovascular: Regular rate and rhythm with no murmurs appreciated Pulmonary: Clear to auscultation bilaterally with no crackles, wheezes, or rhonchi. Normal respiratory effort with no use of accessory muscles. Abdomen: Obese abdomen Soft, nontender to palpation 4 quadrants. Extremities: No clubbing, cyanosis, edema. Right leg AKA. Left wrist 4 x 4 centimeter abscess on the left anterior wrist, with 1 cm x 1 cm excoriated center. Painful to palpation and both active and passive range of motion of fingers and wrist. Erythematous distribution around suspected abscess as well as tracking proximal left antecubital fossa. Neurological: Cranial nerves grossly intact. Psychiatric: Normal mood and affect. Alert and oriented to person, place, and time IVs and Medications Medications Reviewed: Medications were reviewed in detail Lab and Diagnostics Result Diagram: 12/01/16 0536 12/01/16 0536 X-Rays, CTs and MRIs US EXTREMITY SONOGRAM LIMITED IMPRESSION: Small fluid collection deep to the puncture site and left wrist region. Small abscess cannot be excluded. Dictated by: Yolanda Guallpa MD, PhD on 11/28/2016 X-RAY CHEST, TWO VIEWS IMPRESSION: No acute cardiopulmonary disease process. Dictated by: Yolanda Guallpa MD, PhD on 11/28/2016 Assessment & Plan Mr. Linn is a 56 male with past medical history of IV drug use (methamphetamine ), diabetes and hypertension admitted for left wrist abscess and chest pain rule out. Right wrist Abscess. POA. Ongoing Imaging as above. Likely due to poorly controlled Diabetes. Vancomyacin, Ceftriaxone, Clindamycin started on 11/28. Follow up abscess cultures. MRSA negative. Consider stopping Vancomycin. Hand Surgery, Dr. Espinoza following- Will schedule for Surgery today for I&D. For now Nurse instructions for warm compresses q8h, bacitracin topical. Has been NPO past Mn. continue to monitor DM type II, poorly controlled, chronic, active. A1c 10.7. Continue home 55units SQ BID High dose correctional scale insulin Hold home Metformin Chest pain. POS. Resolved. most likely musculoskeletal in nature, ACS unlikely. ECG negative for acute change Troponin negative X 3 Continue to monitor Echo ordered for today. Lactic Acidosis. POA. resolved. Lactic Acid mildly elevated on admit 2.1 IVF was given. Chronic Conditions: Substance abuse. Ongoing Monitor for signs of withdrawal Hypertension. POA. presumed stable Continue home Lisinopril, chlorthalidone Hypothyroidism. POA. Presumed stable Continue home levothyroxine Peripheral neuropathy. POA. Presumed stable Continue home Gabapentin Depression. POA. Presumed Stable Contine home Effexor Patient Status: Patient was admitted under inpatient status with expected length of stay greater than two midnights due to severity of presenting symptoms , risk of adverse event, and complexity of treatment plan. GI Prophylaxis: H2 polo VTE Prophylaxis: Sub-Q Heparin (Unfractionated) Resuscitation Status: CPR: Attempt Resuscitation Prasad Ga MD Dec 01, 2016 13:29
--- NOTE | 2016-12-01 13:47 | PCM.PNMED ---
Subjective Date of Service Dec 01, 2016 Subjective Pt had I&D yesterday AM. Denies any fever/chills overnight. Did have some SOB. No further episodes of chest pain/tightness. Exam Vital Signs Vital Sign - Last Date Time Temp Pulse Resp B/P Pulse Ox O2 Delivery O2 Flow Rate FiO2 12/01/16 04:31 36.4 79 18 154/74 96 Room Air 11/30/16 12:55 2 Intake and Output 11/30/16 11/30/16 12/01/16 Cumulative From/Thru 15:00 23:00 07:00 11/28/16 17:00 - 12/01/16 06:45 Intake Total 300 ml 2933 ml 1486 ml 9798 ml Output Total 1725 ml 1200 ml 5975 ml Balance 300 ml 1208 ml 286 ml 3823 ml Intake Oral 1825 ml 600 ml 3750 ml IV Total 300 ml 1108 ml 886 ml 6048 ml Output Urine Total 1725 ml 1200 ml 5975 ml # Bowel Movements 0 1 1 Exam General: Obese male Awake alert lying in hospital bed in no acute distress, well -developed, well-nourished, appropriately interactive HEENT: Normocephalic, atraumatic. External ears without defect. Pupils equal, round, and reactive to light and accommodation. Oropharynx with Moist mucosa. Neck: Supple with full range of motion. No jugular venous distension. Cardiovascular: Regular rate and rhythm with no murmurs appreciated Pulmonary: Clear to auscultation bilaterally with no crackles, wheezes, or rhonchi. Abdomen: Obese abdomen Soft, nontender to palpation 4 quadrants. Extremities: No clubbing, cyanosis, edema. Right leg AKA. Left wrist I&D site - c/d/i. Minimal bloody discharge. Non-purulent drainage. Neurological: Cranial nerves grossly intact. Psychiatric: Normal mood and affect. Alert and oriented to person, place, and time IVs and Medications Medications Reviewed: Medications were reviewed in detail Lab and Diagnostics Result Diagram: 12/01/1636 12/01/1636 X-Rays, CTs and MRIs US EXTREMITY SONOGRAM LIMITED IMPRESSION: Small fluid collection deep to the puncture site and left wrist region. Small abscess cannot be excluded. Dictated by: Yolanda Guallpa MD, PhD on 11/28/2016 X-RAY CHEST, TWO VIEWS IMPRESSION: No acute cardiopulmonary disease process. Dictated by: Yolanda Guallpa MD, PhD on 11/28/2016 Assessment & Plan Mr. Linn is a 56 male with past medical history of IV drug use (methamphetamine ), diabetes and hypertension admitted for left wrist abscess and chest pain rule out s/p I&D on 11/[address] Romeo Espinoza. Right wrist Abscess, POA. Ongoing. s/p I&D on 11/[address] Romeo Espinoza. Imaging as above. Likely due to poorly controlled Diabetes. Wound Culture from I&D- Staph Aureus. Wound Swab- MSSA. Vancomyacin, Ceftriaxone, Clindamycin started on 11/28. MRSA negative. Stopped Vancomycin and Clindamycin on 12/01 as wound culture will likely also be MSSA. Upon discharge will add PO abx for total 14 days to end 12/11. Hand Surgery, Dr. Espinoza following- continue IV abx, and pair down as needed. continue to monitor DM type II, poorly controlled, chronic, active. A1c 10.7. Continue home 55units SQ BID High dose correctional scale insulin Hold home Metformin Chest pain. POS. Resolved. most likely musculoskeletal in nature, ACS unlikely. ECG negative for acute change. RBBB and LAFB, same prior EKG from 2016. Troponin negative X 3 Echo on 12/01- normal. No change vs prior. No vegetations noted. Lactic Acidosis. POA. resolved. Lactic Acid mildly elevated on admit 2.1 IVF was given. Chronic Conditions: Substance abuse. Ongoing Monitor for signs of withdrawal Hypertension. POA. presumed stable Continue home Lisinopril, chlorthalidone Hypothyroidism. POA. Presumed stable Continue home levothyroxine Peripheral neuropathy. POA. Presumed stable Continue home Gabapentin Depression. POA. Presumed Stable Contine home Effexor Patient Status: Patient was admitted under inpatient status with expected length of stay greater than two midnights due to severity of presenting symptoms , risk of adverse event, and complexity of treatment plan. GI Prophylaxis: H2 polo VTE Prophylaxis: Sub-Q Heparin (Unfractionated) Resuscitation Status: CPR: Attempt Resuscitation Prasad Ga MD Dec 01, 2016 13:47
[2016-12-01 13:57] VITALS: BP 157/93; PULSE 93; RESP 18; O2SAT 98
[2016-12-01] MEDS: cefTRIAXone Inj 2,000 MG in Dextrose 5% Minibag Plus 50 ML IV SCH (17:49)
[2016-12-01 19:55] VITALS: BP 159/91; PULSE 89; RESP 18; O2SAT 97
[2016-12-02] MEDS: Heparin 5,000 Unit/mL Inj SUBQ SCH ×2 (00:47→07:41)
[2016-12-02 05:21] VITALS: BP 151/78; PULSE 87; RESP 18; O2SAT 96
--- NOTE | 2016-12-02 06:29 | NUR ---
Pain Pt c/o pain 7-8/10 at left wrist, Oxycodone 5mg givenx2 per pt requests, pain controlled adequate, fall asleep most of night. Left wrist abscess wrapped by kerlix dressing, CDI, elevated on pillow.
[2016-12-02] MEDS: Insulin LISPRO 300 Unit/3 mL Inj SUBQ SCH ×2 (07:40→11:44)
[2016-12-02] MEDS: Venlafaxine XR 75 mg ER24 Capsule PO SCH (07:41)
[2016-12-02] MEDS: Insulin GLARgine 100 Unit/mL Syringe SUBQ SCH (07:42)
[2016-12-02 08:44] LABS: BASOPHILS % (AUTO) 0.6 % (0-3); EOSINOPHILS % (AUTO) 3.9 % (0-5); Mean Corpuscular Hemoglobin 29.9 pg (27.0-35.0); Mean Corpuscular Volume 88.2 fL (81-100); NEUTROPHILS % (AUTO) 54.5 % (40-74); Platelet Count 234 bil/L (150-400)
[2016-12-02 09:21] LABS: Magnesium 1.8 mg/dL (1.6-2.6)
--- NOTE | 2016-12-02 10:38 | PCM.PNMED ---
Subjective Date of Service Dec 02, 2016 Subjective No overnight events. Exam Vital Signs Vital Sign - Last Date Time Temp Pulse Resp B/P Pulse Ox O2 Delivery O2 Flow Rate FiO2 12/02/16 05:21 36.2 87 18 151/78 96 Room Air 11/30/16 12:55 2 Intake and Output 12/01/16 12/01/16 12/02/16 Cumulative From/Thru 15:00 23:00 07:00 11/28/16 17:00 - 12/02/16 05:24 Intake Total 2104 ml 400 ml 79351 ml Output Total 350 ml 1300 ml 7625 ml Balance 1754 ml -900 ml 4677 ml Intake Oral 1744 ml 400 ml 5894 ml IV Total 360 ml 6408 ml Output Urine Total 350 ml 1300 ml 7625 ml # Voids 3 3 # Bowel Movements 0 0 1 Exam General: Obese male Awake alert lying in hospital bed in no acute distress, well -developed, well-nourished, appropriately interactive HEENT: Normocephalic, atraumatic. External ears without defect. Pupils equal, round, and reactive to light and accommodation. Oropharynx with Moist mucosa. Neck: Supple with full range of motion. No jugular venous distension. Cardiovascular: Regular rate and rhythm with no murmurs appreciated Pulmonary: Clear to auscultation bilaterally with no crackles, wheezes, or rhonchi. Abdomen: Obese abdomen Soft, nontender to palpation 4 quadrants. Extremities: No clubbing, cyanosis, edema. Right leg AKA. Left wrist I&D site - c/d/i. Minimal bloody discharge. Non-purulent drainage. Neurological: Cranial nerves grossly intact. Psychiatric: Normal mood and affect. Alert and oriented to person, place, and time IVs and Medications Medications Reviewed: Medications were reviewed in detail Lab and Diagnostics Result Diagram: 12/02/1681412/02/1615 Microbiology LEXII CULT AEROBIC Preliminary 12/01/16-0810 Organism 1 STAPHYLOCOCCUS AUREUS COLONY COUNT/QUANTITY LIGHT GROWTH Oxacillin Susceptible Penicillin Resistant Staph spp. are Susceptible to Penicillin stable penicillins, Blactam/Blactamase inhibitor combinations, antistaphyloccal cephems, and carbapenems. 1. STAPHYLOCOCCUS AUREUS M.I.C Interp --------- ------ * CEFAZOLIN S * CLINDAMYCIN <=0.25 S * ERYTHROMYCIN >=8 R * LINEZOLID 2 S * MOXIFLOXACIN <=0.25 S * OXACILLIN LEXII 0.5 S * RIFAMPIN <=0.5 S * TRIMETHOPRIM/SULFAMETHOXAZOLE <=10 S * VANCOMYCIN <=0.5 S LEXII CULT AEROBIC Preliminary 12/01/16-09 Organism 1 STAPHYLOCOCCUS AUREUS COLONY COUNT/QUANTITY MODERATE GROWTH SENSITIVITY COMMENTS For susceptibility test results see CULTURE FROM 11/28 Microbiology 11/28/16 Blood Culture - Preliminary, Resulted No growth at 2 days; culture examined... 11/28/16 MRSA (PCR) - Final, Complete 11/30/16 Gram Stain - Final, Resulted 11/30/16 Culture & Sensitivity - Preliminary, Resulted Staphylococcus Aureus 11/30/16 Anaerobic Culture - Preliminary, Resulted X-Rays, CTs and MRIs US EXTREMITY SONOGRAM LIMITED IMPRESSION: Small fluid collection deep to the puncture site and left wrist region. Small abscess cannot be excluded. Dictated by: Yolanda Guallpa MD, PhD on 11/28/2016 X-RAY CHEST, TWO VIEWS IMPRESSION: No acute cardiopulmonary disease process. Dictated by: Yolanda Guallpa MD, PhD on 11/28/2016 Assessment & Plan Mr. Linn is a 56 male with past medical history of IV drug use (methamphetamine ), diabetes and hypertension admitted for left wrist abscess and chest pain rule out s/p I&D on 11/[address] Romeo Espinoza. Right wrist Abscess, POA. Ongoing. s/p I&D on 11/[address] Romeo Espinoza. Imaging as above. Likely due to poorly controlled Diabetes. Wound Culture from I&D- Staph Aureus. Wound Swab- MSSA. Vancomyacin, Ceftriaxone, Clindamycin started on 11/28. MRSA negative. Stopped Vancomycin and Clindamycin on 12/01 as wound culture will likely also be MSSA. Upon discharge will add PO Cephalexin for total 14 days to end 12/11. Hand Surgery, Dr. Espinoza following, will follow up as outpatient. DM type II, poorly controlled, chronic, active. A1c 10.7. Continue home 55units SQ BID High dose correctional scale insulin Hold home Metformin Resume home regimen upon discharge. Chest pain. POS. Resolved. most likely musculoskeletal in nature, ACS unlikely. ECG negative for acute change. RBBB and LAFB, same prior EKG from 2015. Troponin negative X 3 Echo on 12/01- normal. No change vs prior. No vegetations noted. If Chest Pain returns would advise stress test as outpatient to be scheduled by primary doctor. Lactic Acidosis. POA. resolved. Lactic Acid mildly elevated on admit 2.1 IVF was given. Chronic Conditions: Substance abuse. Ongoing Monitor for signs of withdrawal , Oxycodone as needed. Hypertension. POA. presumed stable Continue home Lisinopril, chlorthalidone Hypothyroidism. POA. Presumed stable Continue home levothyroxine Peripheral neuropathy. POA. Presumed stable Continue home Gabapentin Depression. POA. Presumed Stable Continue home Effexor Dispo- Home with information to schedule appointment at Wound Clinic. Teaching for significant other to do dressing change. Take antibiotic Cephalexin for total 14 days to end 12/11. If Chest Pain returns would advise stress test as outpatient to be scheduled by primary doctor. Follow up with Dr. Espinoza in 1 week. Call his office Saturday morning to make appointment. Confirm which wound clinic Dr. Espinoza prefers. Call Wound Clinic Saturday morning to schedule appointment. GI Prophylaxis: H2 polo VTE Prophylaxis: Sub-Q Heparin (Unfractionated) VTE Mechanical Devices: Intermittant Pneumatic CD Resuscitation Status: CPR: Attempt Resuscitation Prasad Ga MD Dec 02, 2016 10:38
[2016-12-02] MEDS ORDERED: FAMO20T PO (10:48)
[2016-12-02] MEDS ORDERED: CEPH500C PO (10:48)
[2016-12-02] MEDS ORDERED: OXYC-530 PO (10:48)
--- NOTE | 2016-12-02 10:56 | PCM.DC.MED ---
Discharge Summary Date of Service Dec 02, 2016 Dates of Hospitalization Date of Hospital Admission Nov 28, 2016 at 18:47 Date of Discharge: Dec 02, 2016 Providers: Admitting Physician: Rojas Herrera MD Primary Care Physician: Ronal Le MD Attending Physician: Jasper Ga MD Diagnosis at Time of Discharge Diagnosis at Time of Discharge Right wrist Abscess DM type II, poorly controlled Chest pain. Substance abuse with opioid dependance. Lactic Acidosis Chronic Conditions: Hypertension Hypothyroidism Peripheral neuropathy Depression. POA Procedures XRay, CTs & MRIs US EXTREMITY SONOGRAM LIMITED IMPRESSION: Small fluid collection deep to the puncture site and left wrist region. Small abscess cannot be excluded. Dictated by: Yolanda Guallpa MD, PhD on 11/28/2016 X-RAY CHEST, TWO VIEWS IMPRESSION: No acute cardiopulmonary disease process. Dictated by: Yolanda Guallpa MD, PhD on 11/28/2016 Brief History Mr. Linn is a 56 male with past medical history of IV drug use (methamphetamine ), diabetes and hypertension who presented to the ED secondary to left wrist pain and intermittent chest pain 3 hours. He states that he last injected methamphetamine to his affected wrist 6 days prior and developed subsequent infectious-like symptoms. Not remember looking the needle before injecting. The area is painful to palpation as well as active and passive motion. He denies fevers/chills, nausea/vomiting headache or visual disturbances. He does state that he has had intermittent chest pain for the last day or so which will last for a few seconds at a time and spontaneously resolved. He states that during these episodes he is not exerting himself but it does feel better when he puts pressure on it with his fingers. In the ED patient given ceftriaxone and vancomycin. Blood cultures obtained. Ultrasound of the wrists showed small fluid collection deep to the puncture site possibly abscess. Chest x-ray showed no acute cardiopulmonary disease. EKG showed heart rate in the 90s, sinus rhythm. With right bundle-branch block and left anterior fascicular block which was unchanged when compared with prior. Lab values show negative troponin, mildly elevated lactic acid 2.1, C- reactive protein 1.2, sodium 131, close to 68 magnesium 1.5. d-dimer negative Hospital Course Mr. Linn is a 56 male with past medical history of IV drug use (methamphetamine ), diabetes and hypertension admitted for left wrist abscess and chest pain rule out s/p I&D on 11/[address] Romeo Espinoza. Right wrist Abscess, POA. Ongoing. s/p I&D on 11/[address] Romeo Espinoza. Imaging as above. Likely due to poorly controlled Diabetes. Wound Culture from I&D- Staph Aureus. Wound Swab- MSSA. Vancomyacin, Ceftriaxone, Clindamycin started on 11/28. MRSA negative. Stopped Vancomycin and Clindamycin on 12/01 as wound culture will likely also be MSSA. Upon discharge will add PO Cephalexin for total 14 days to end 12/11. Hand Surgery, Dr. Espinoza following, will follow up as outpatient. DM type II, poorly controlled, chronic, active. A1c 10.7. Continue home 55units SQ BID High dose correctional scale insulin Hold home Metformin Resume home regimen upon discharge. Chest pain. POS. Resolved. most likely musculoskeletal in nature, ACS unlikely. ECG negative for acute change. RBBB and LAFB, same prior EKG from 2016. Troponin negative X 3 Echo on 12/01- normal. No change vs prior. No vegetations noted. If Chest Pain returns would advise stress test as outpatient to be scheduled by primary doctor. Lactic Acidosis. POA. resolved. Lactic Acid mildly elevated on admit 2.1 IVF was given. Chronic Conditions: Substance abuse. Ongoing Monitor for signs of withdrawal , Oxycodone as needed. Hypertension. POA. presumed stable Continue home Lisinopril, chlorthalidone Hypothyroidism. POA. Presumed stable Continue home levothyroxine Peripheral neuropathy. POA. Presumed stable Continue home Gabapentin Depression. POA. Presumed Stable Continue home Effexor Dispo- Home with information to schedule appointment at Wound Clinic. Teaching for significant other to do dressing change. Take antibiotic Cephalexin for total 14 days to end 12/11. If Chest Pain returns would advise stress test as outpatient to be scheduled by primary doctor. Follow up with Dr. Espinoza in 1 week. Call his office Saturday to make appointment. Confirm which wound clinic Dr. Espinoza prefers. Call Wound Clinic Saturday to schedule appointment. Exam Vital Signs (Last) Date Time Temp Pulse Resp B/P Pulse Ox O2 Delivery O2 Flow Rate FiO2 12/02/16 05:21 36.2 87 18 151/78 96 Room Air 11/30/16 12:55 2 Test 11/28/16 17:15 11/29/16 05:00 11/29/16 07:20 11/29/16 18:08 Erythrocyte Sedimentation Rate 23mm/hr (0-30) Prothrombin Time 9.1sec (8.1-12.5) Prothromb Time International Ratio 0.85ratio D-Dimer < 0.50mg/L FEU (<0.50) Hemoglobin A1c 10.7% (4.8-5.6) C-Reactive Protein 1.2mg/dL (0.0-0.5) Procalcitonin 0.05ng/mL (0.00-0.08) Thyroid Stimulating Hormone (TSH) 3.380uIU/mL (0.450-4.500) Lactic Acid Level 1.2mmol/L (0.4-2.0) Total Bilirubin 0.2mg/dL (0.0-1.2) Aspartate Amino Transf (AST/SGOT) 23U/L (0-50) Alanine Aminotransferase (ALT/SGPT) 30U/L (0-44) Alkaline Phosphatase 66U/L (25-150) Troponin T 0.010ug/L (0.0-0.011) Total Protein 6.3g/dL (6.4-8.4) Albumin 3.1g/dL (3.4-5.0) Vancomycin Level Trough 17.0mcg/mL Test 12/02/16 08:15 White Blood Count 6.9th/mm3 (3.8-10.1) Red Blood Count 4.82mil/mm3 (4.40-5.80) Hemoglobin 14.4g/dL (13.8-17.2) Hematocrit 42.5% (41.0-50.0) Mean Corpuscular Volume 88.2fL (81-100) Mean Corpuscular Hemoglobin 29.9pg (27.0-35.0) Mean Corpuscular Hemoglobin Concent 33.9% (32.0-37.0) Red Cell Distribution Width 13.2% (12.3-15.4) Platelet Count 234bil/L (150-400) Neutrophils (%) (Auto) 54.5% (40-74) Lymphocytes (%) (Auto) 32.7% (14-46) Monocytes (%) (Auto) 8.0% (4-12) Eosinophils (%) (Auto) 3.9% (0-5) Basophils (%) (Auto) 0.6% (0-3) Sodium Level 135mEq/L (134-144) Potassium Level 4.3mEq/L (3.5-5.2) Chloride Level 100mEq/L (97-108) Carbon Dioxide Level 22mmol/L (18-29) Blood Urea Nitrogen 20mg/dL (6-24) Creatinine 1.04mg/dL (0.76-1.27) Estimat Glomerular Filtration Rate 79mL/min (>59) Glucose Level 80mg/dL (60-99) Calcium Level 8.3mg/dL (8.5-10.1) Magnesium Level 1.8mg/dL (1.6-2.6) Microbiology Results LEXII CULT AEROBIC Preliminary 12/01/16-0810 Organism 1 STAPHYLOCOCCUS AUREUS COLONY COUNT/QUANTITY LIGHT GROWTH Oxacillin Susceptible Penicillin Resistant Staph spp. are Susceptible to Penicillin stable penicillins, Blactam/Blactamase inhibitor combinations, antistaphyloccal cephems, and carbapenems. 1. STAPHYLOCOCCUS AUREUS M.I.C Interp --------- ------ * CEFAZOLIN S * CLINDAMYCIN <=0.25 S * ERYTHROMYCIN >=8 R * LINEZOLID 2 S * MOXIFLOXACIN <=0.25 S * OXACILLIN LEXII 0.5 S * RIFAMPIN <=0.5 S * TRIMETHOPRIM/SULFAMETHOXAZOLE <=10 S * VANCOMYCIN <=0.5 S LEXII CULT AEROBIC Preliminary 12/01/16-09 Organism 1 STAPHYLOCOCCUS AUREUS COLONY COUNT/QUANTITY MODERATE GROWTH SENSITIVITY COMMENTS For susceptibility test results see CULTURE FROM 11/28 Microbiology 11/28/16 Blood Culture - Preliminary, Resulted No growth at 2 days; culture examined... 11/28/16 MRSA (PCR) - Final, Complete 11/30/16 Gram Stain - Final, Resulted 11/30/16 Culture & Sensitivity - Preliminary, Resulted Staphylococcus Aureus 11/30/16 Anaerobic Culture - Preliminary, Resulted Discharge Medications Discharge Medications Aripiprazole (Abilify) 10 Mg Tablet 10 MG PO DAILY (Reported) Cephalexin (Cephalexin) 500 Mg Capsule 500 MG PO QID Prescribed by: JASPER GA MD Chlorthalidone (Chlorthalidone) 25 Mg Tablet 25 MG PO DAILY (Reported) Famotidine (Pepcid) 20 Mg Tablet 20 MG PO BID Prescribed by: JASPER GA MD Gabapentin (Gabapentin) 600 Mg Tablet 600 MG PO BID (Reported) Insulin Glargine,Hum.rec.anlog (Basaglar Kwikpen U-100) 100 Unit/Ml (3 Ml) Insuln.pen 55 UNITS SUBQ BID (Reported) Levothyroxine (Levothyroxine) 50 Mcg Tablet 50 MCG PO 0630 Prescribed by: ANASTASIA SPANGLER MD Lisinopril (Lisinopril) 40 Mg Tablet 40 MG PO DAILY (Reported) Metformin (Glucophage) 1,000 Mg Tablet 1,000 MG PO BID (Reported) Venlafaxine ER (Effexor XR) 150 Mg Cap.er.24h 150 MG PO DAILY (Reported) As needed Insulin Human Lispro (HumaLOG U100 Insulin Vial) 100 Unit/Ml Unit 30-40 UNIT SUBQ TIDWM PRN PRN sliding scale (Reported) oxyCODONE (oxyCODONE) 5 Mg Tablet 5 MG PO Q6H PRN PRN For Moderate Pain Prescribed by: JASPER GA MD Additional med instructions Take antibiotic Cephalexin for total 14 days to end 12/11. Followup Plan Disposition: Home with information to schedule appointment at Wound Clinic. Teaching for significant other to do dressing change. Follow-up plan Follow up with primary doctor in 1-2 weeks. Follow up with Dr. Espinoza in 1 week. Call his office Saturday to make appointment. Confirm which wound clinic Dr. Espinoza prefers. Call Wound Clinic Saturday to schedule appointment. Discharge Diet: Diabetic Patient Instructions If Chest Pain returns would advise stress test as outpatient to be scheduled by primary doctor. Follow-up Provider: Ronal Le MD Follow-up with PCP in: 1 week Provider: Glen Espinoza MD Follow-up in: 1 week Time spent Greater than 30 minutes was spent in preparation of discharge with greater than 50% of that time dedicated to patient counseling and coordination of care. Jasper Ga MD Dec 02, 2016 10:56
--- NOTE | 2016-12-02 10:57 | PCM.DIMED ---
Discharge Instructions Date of Service Dec 02, 2016 Dates of Hospitalization Nov 28, 2016 at 18:47 Discharge Diagnosis Discharge Diagnosis Right wrist Abscess DM type II, poorly controlled Chest pain. Substance abuse with opioid dependance. Lactic Acidosis Chronic Conditions: Hypertension Hypothyroidism Peripheral neuropathy Depression. POA Medication Instructions Additional med instructions Take antibiotic Cephalexin for total 14 days to end 12/11. Test Results Test Results [facility] CULT AEROB[facility] Preliminary 12/01/16-0810 Organism 1 STAPHYLOCOCCUS AUREUS COLONY COUNT/QUANTITY LIGHT GROWTH Oxacillin Susceptible Penicillin Resistant Staph spp. are Susceptible to Penicillin stable penicillins, Blactam/Blactamase inhibitor combinations, antistaphyloccal cephems, and carbapenems. 1. STAPHYLOCOCCUS AUREUS M.I.C Interp --------- ------ * CEFAZOLIN S * CLINDAMYCIN <=0.25 S * ERYTHROMYCIN >=8 R * LINEZOLID 2 S * MOXIFLOXACIN <=0.25 S * OXACILLIN LEXII 0.5 S * RIFAMPIN <=0.5 S * TRIMETHOPRIM/SULFAMETHOXAZOLE <=10 S * VANCOMYCIN <=0.5 S [facility] CULT AEROB[facility] Preliminary 12/01/16-901 Organism 1 STAPHYLOCOCCUS AUREUS COLONY COUNT/QUANTITY MODERATE GROWTH SENSITIVITY COMMENTS For susceptibility test results see CULTURE FROM 11/28 Microbiology 11/28/16 Blood Culture - Preliminary, Resulted No growth at 2 days; culture examined... 11/28/16 MRSA (PCR) - Final, Complete 11/30/16 Gram Stain - Final, Resulted 11/30/16 Culture & Sensitivity - Preliminary, Resulted Staphylococcus Aureus 11/30/16 Anaerobic Culture - Preliminary, Resulted X-Rays, CTs and MRIs US EXTREMITY SONOGRAM LIMITED IMPRESSION: Small fluid collection deep to the puncture site and left wrist region. Small abscess cannot be excluded. Dictated by: Yolanda Guallpa MD, PhD on 11/28/2016 X-RAY CHEST, TWO VIEWS IMPRESSION: No acute cardiopulmonary disease process. Dictated by: Yolanda Guallpa MD, PhD on 11/28/2016 Diet Discharge Diet: Diabetic Call your provider Call your provider for: Fever or Chills, Chest pain Patient Instructions Patient Instructions If Chest Pain returns would advise stress test as outpatient to be scheduled by primary doctor. Follow-up plan Follow up with primary doctor in 1-2 weeks. Follow up with Dr. Espinoza in 1 week. Call his office Saturday morning to make appointment. Confirm which wound clinic Dr. Espinoza prefers. Call Wound Clinic Saturday morning to schedule appointment. Follow-up Provider: Ronal Le MD Follow-up with PCP in: 1 week Provider: Glen Espinoza MD Follow-up in: 1 week Prasad Ga MD Dec 02, 2016 10:57
--- NOTE | 2016-12-02 11:06 | NUR ---
Social Work: Multidisciplinary Rounds / Discharge Data: EMR reviewed. Patient is on day 4 of hospitalization for chest pain and left wrist abscess per H&P. Patient was discussed in morning rounds. Patient has been deemed medically stable for discharge today per MD. No concerns were noted by staff or MD. CD assessment was unable to be completed by SW prior to discharge. Transportation arrangements will be made by patient. Patient has no additional needs at this time. Assessment: Patient will discharge home. Plan: Patient will discharge home today. Transportation arrangements will be made by patient. Patient has no additional needs at this time. YOHANA García
--- NOTE | 2016-12-02 11:30 | NUR ---
Discharge Patient given discharge orders. Patient given medication list with written instructions when next dose due. Patient given hard copies of prescriptions. Patient given informational packets. Patient given follow up instructions. IV removed fully intact and asymptomatic. Waiting for significant other for discharge.
--- NOTE | 2016-12-03 10:18 | CONS ---
[address] [address] CONSULTATION REPORT PATIENT: BELLO LAMB : 1960 MR#: [id number] ADMIT: 11/28/2016 JOB ID: [id number] DATE OF SERVICE: 11/29/2016 CONSULTING PHYSICIAN: Emergency department and hospitalist PROJECT OFFICER: Glen Espinoza MD, Plastic Surgery, Hand Surgery. CHIEF COMPLAINT: Left wrist abscess. HISTORY OF PRESENT ILLNESS: This is a 56-year-old male patient with a history of IV drug use, diabetes, and hypertension. Patient presents to the ED with left wrist pain and erythema and swelling. Patient was evaluated in the ER on November 28, 2016. Ultrasound demonstrated a small subcutaneous fluid collection suspicious for an abscess. The patient also has chest pain. Patient was admitted for IV antibiotics. I was consulted to evaluate the patient for possible drainage. On speaking with the patient. Patient reports that the area of erythema is at his previous injection site. The patient reports pain in the area. Patient reports that the erythema appears to be better on the day of evaluation compared to at the night before. PAST MEDICAL HISTORY: 1. Diabetes. 2. Hep C. 3. Substance abuse. 4. Peripheral vascular disease. 5. Neuropathy. 6. Hyperlipidemia and hypertension. PAST SURGICAL HISTORY: 1. Right BKA. 2. Left foot surgery. 3. Appendectomy. 4. Tonsillectomy. FAMILY HISTORY: Noncontributory. SOCIAL HISTORY: Patient is an IV drug user. The patient reports alcohol use and tobacco use. REVIEW OF SYSTEMS: Negative other than noted above. PHYSICAL EXAMINATION: The patient is awake, alert, and in no acute distress. Focused left upper extremity examination reveals an area of erythema on the left distal wrist volar aspect. The area of erythema is approximately 5-6 cm in diameter. There is a central area of skin necrosis approximately 1 cm in diameter. The area is indurated. There is no obvious fluctuance. Patient has mild erythema beyond that to the mid forearm. ASSESSMENT AND PLAN: This is a patient with left breast abscess. At this point, the patient is on antibiotics. The patient does not appear to have any deep space infection or any necrotizing or fast spreading infection. I will take the patient to the operating room on November 30, 2016 for incision and drainage of the abscess. I will obtain some intraoperative culture to guide antibiosis. I discussed this with patient's primary care physician and hospitalist. Patient will be made n.p.o. in preparation for the procedure on November 30, 2016. I told the hospitalist that the patient may be discharged afterwards if there is no other acute issue.
--- NOTE | 2016-12-03 11:04 | OP ---
[address] [address] OPERATIVE REPORT PATIENT: BELLO LAMB : 1960 MR#: [id number] ADMIT: 11/28/2016 JOB ID: [id number] DATE OF SURGERY: 11/30/2016 PREOPERATIVE DIAGNOSIS(ES): Left wrist abscess. POSTOPERATIVE DIAGNOSIS(ES): Left wrist abscess, without any evidence of deep space infection. PROCEDURE: Incision and drainage of left wrist abscess. SURGEON: Glen Espinoza MD [employer]: None. ANESTHESIA: General anesthesia. COMPLICATIONS: None apparent. SPECIMEN: Left wrist tissue and left wrist abscess fluid to Microbiology for gram stain, culture and sensitivity. INDICATIONS FOR PROCEDURE: This is a 56-year-old, male patient, with history of IV drug use and injection with a left wrist abscess. At this point, incision and drainage of the abscess is indicated. PROCEDURE AND FINDINGS: The patient was identified in the preoperative area. Surgical site was marked. The patient was then taken back to the operating room, placed supine on the operating table. Appropriate time-outs were taken. General anesthesia was induced smoothly. The patient was then prepped and draped in the usual sterile manner. Local anesthesia was then infiltrated to the volar forearm approximately 5 cm proximal to the area of surgery in a subcutaneous manner. It was noted that the patient has an area of induration and erythema, approximately 5 cm in diameter. There is a central area of scabbing and skin necrosis. The ellipse was then designed to encompass this area of scabbing. Incision was made with a 15 blade just through the skin. I encountered a small pocket of abscess fluid. This was removed, with some sent off to pathology and microbiology. A small section of the deep tissue was also sent off to microbiology. The incision was then connected down to the abscess cavity, allowing the ellipse to be removed. This area was irrigated with a copious amount of saline. There is no obvious connection to deeper compartment or breakage encroachment through the fascia. The area was then packed with 1/4-inch iodoform gauze. The patient tolerated the procedure well. Needle count, sponge count, and instrument counts were correct at the end of procedure. The patient was extubated and transported to recovery in stable condition.
== END 2016-12-02 12:43 | disposition home or self-care (01) | DRG 364 ==
LOC: EDBD 16:51 → SED 16:51 → EDUNIT# 16:51 → MPC 18:47
PROVIDERS: ADMIT Hospitalist; ATTEND Internal Medicine
PROC: 0J9H0ZZ Drainage of Left Lower Arm Subcutaneous Tissue and Fascia, Open Approach (ICD-10-PCS; principal; 2016-11-30 11:45)
DX: L02.414 Cutaneous abscess of left upper limb (principal); E87.2 Acidosis; E11.42 Type 2 diabetes mellitus with diabetic polyneuropathy; F15.10 Other stimulant abuse, uncomplicated; E11.65 Type 2 diabetes mellitus with hyperglycemia; Z89.611 Acquired absence of right leg above knee; R07.89 Other chest pain; Z79.4 Long term (current) use of insulin; Z79.84 Long term (current) use of oral hypoglycemic drugs; I10 Essential (primary) hypertension; E78.5 Hyperlipidemia, unspecified; F17.210 Nicotine dependence, cigarettes, uncomplicated; I73.9 Peripheral vascular disease, unspecified; E03.9 Hypothyroidism, unspecified; F32.9 Major depressive disorder, single episode, unspecified; B95.61 Methicillin susceptible Staphylococcus aureus infection as the cause of diseases classified elsewhere; B19.20 Unspecified viral hepatitis C without hepatic coma